=== PATIENT | male | born 1990 | race Hispanic/Latino ===

== ENCOUNTER 2017-07-19 09:13 | Day surgery (SDC) | payer OTHER ==
[2017-07-19] MEDS ORDERED: LEUCOVORIN CALCIUM IVPB SCH (09:45)
[2017-07-19] MEDS ORDERED: IRINOTECAN HCL IVPB SCH (09:45)
[2017-07-19] MEDS ORDERED: ADMIXTURE FEE IVPB SCH ×5 (09:45)
[2017-07-19] MEDS ORDERED: FLUOROURACIL IVPB SCH (09:45)
[2017-07-19] MEDS ORDERED: DEXAMETHASONE IVPB SCH (09:45)
[2017-07-19] MEDS ORDERED: ONDANSETRON IVPB SCH (09:45)
[2017-07-19] MEDS ORDERED: SODIUM CHLORIDE IVPB SCH ×4 (09:45)
[2017-07-19] MEDS ORDERED: [UNRECOGNIZED DRUG - OTHER] IVPB SCH (09:45)
[2017-07-19] MEDS ORDERED: ATROPINE SULFATE IVPB SCH (09:45)
[2017-07-19 10:32] VITALS: BP 117/65; TEMP 97.9
== END 2017-07-19 13:36 | disposition home or self-care (01) ==
LOC: ONC/OP 09:13
PROVIDERS: ATTEND Internal Medicine Hematology & Oncology
DX: Z51.11 Encounter for antineoplastic chemotherapy (principal); C20 Malignant neoplasm of rectum; C78.7 Secondary malignant neoplasm of liver and intrahepatic bile duct; E11.9 Type 2 diabetes mellitus without complications; Z88.0 Allergy status to penicillin; Z91.013 Allergy to seafood; Z91.041 Radiographic dye allergy status; Z90.49 Acquired absence of other specified parts of digestive tract; Z98.890 Other specified postprocedural states
CPT/HCPCS: 36415; 80053; 82248; 83615; 84100; 84550; 96367; 96413; 96415; 96417; A4216; J0461; J0640; J1100; J2405; J7050; J9190; J9206

== ENCOUNTER 2017-08-09 08:22 | Outpatient (CLI) | payer OTHER ==
--- NOTE | 2017-08-09 10:04 | CT ---
CT ABDOMEN AND PELVIS WITH CONTRAST: Technique: Multiple axial tomograms were obtained through the abdomen and pelvis with IV enhancement and oral contrast. History: Rectal cancer. Re-staging. Comparison: Noncontrast CT abdomen and pelvis, 07-07-[address] abdomen and pelvis 7. FINDINGS: Lung bases are clear. Multiple liver metastatic lesions are again noted. These lesions are too numerous to count. There is now increased number of these lesions when compared to 04-19-17. A larger lesion in the upper left l obe of the liver under the diaphragm measures 3.0 cm today whereas it was previously measured at 2.0 cm. A lesion near the gallbladder fossa previously measured 2.3 cm. It measures 3.0 cm today. Numer ous other lesions throughout the liver measure 1-2 cm. A larger lesion in the right lobe of the live r under the dome of the diaphragm measures 3.7 cm today whereas it previously measured 3.1 cm. Spleen and pancreas appear unremarkable. Adrenal glands and kidneys unremarkable. Small bowel loops unremarkable. Stool throughout the colon. There continues to be an area of mucosal thickening and luminal narrowin g in the rectum at the rectosigmoid junction consistent with the history of rectal cancer. Perirecta l fat stranding is again noted and unchanged in appearance. Tiny nonspecific periaortic lymph nodes appear stable. No pelvic adenopathy identified. Osseous stru ctures appear unremarkable. IMPRESSION: 1. Increasing number and size of the liver metastatic lesions when compared to the exam of 04-19-17. 2. The rectosigmoid mass with peripheral perirectal fat stranding does not appear significantly mina ged. POS: [facility]
[2017-08-09] MEDS ORDERED: Iopamidol 370 76% 100 ML VIAL ONE (16:03)
== END 2017-08-09 08:23 | disposition home or self-care (01) ==
LOC: CT 08:22
PROVIDERS: ATTEND Internal Medicine Hematology & Oncology
DX: C20 Malignant neoplasm of rectum (principal); C78.7 Secondary malignant neoplasm of liver and intrahepatic bile duct
CPT/HCPCS: 74177

== ENCOUNTER 2017-08-15 22:20 | Emergency (ER) | payer OTHER | END 2017-08-15 23:17 | disposition home or self-care (01) | LOC: SCSER 22:20 | DX: M53.3 Sacrococcygeal disorders, not elsewhere classified (principal); E11.9 Type 2 diabetes mellitus without complications; Z85.038 Personal history of other malignant neoplasm of large intestine; Z85.819 Personal history of malignant neoplasm of unspecified site of lip, oral cavity, and pharynx; Z79.4 Long term (current) use of insulin; Z79.899 Other long term (current) drug therapy | CPT/HCPCS: 96372; J2270 ==

== ENCOUNTER 2017-08-23 09:38 | Day surgery (SDC) | payer OTHER ==
[2017-08-23] MEDS ORDERED: ADMIXTURE FEE IVPB SCH ×7 (10:00→10:15)
[2017-08-23] MEDS ORDERED: Ondansetron 2MG/ML MDV 10 MG, Dexamethasone 10 MG, Admixture Fee 1 EACH in Sodium Chlor... IVP SCH (10:00)
[2017-08-23] MEDS ORDERED: DEXTROSE IVPB SCH ×6 (10:00)
[2017-08-23] MEDS ORDERED: OXALIPLATIN IVPB SCH ×3 (10:00)
[2017-08-23] MEDS ORDERED: FLUOROURACIL IVPB SCH ×3 (10:00)
[2017-08-23] MEDS ORDERED: WATER IVPB SCH ×6 (10:00)
[2017-08-23] MEDS ORDERED: Leucovorin Calcium 50 MG, Admixture Fee 1 EACH in Dextrose 5% in Water 50 ML IVPB SCH ×3 (10:00)
[2017-08-23] MEDS ORDERED: SODIUM CHLORIDE IVPB SCH (10:15)
[2017-08-23] MEDS ORDERED: BEVACIZUMAB IVPB SCH (10:15)
[2017-08-23] MEDS ORDERED: Morphine 10 MG/ML VIAL SLOW IVP SCH (10:30)
[2017-08-23] MEDS ORDERED: Sodium Chloride 0.9% 20 ML ONE (12:26)
== END 2017-08-23 15:11 | disposition home or self-care (01) ==
LOC: ONC/OP 09:38
PROVIDERS: ATTEND Internal Medicine Hematology & Oncology
DX: Z51.11 Encounter for antineoplastic chemotherapy (principal); C20 Malignant neoplasm of rectum; C78.7 Secondary malignant neoplasm of liver and intrahepatic bile duct; E11.9 Type 2 diabetes mellitus without complications; Z79.4 Long term (current) use of insulin; Z79.891 Long term (current) use of opiate analgesic; Z79.899 Other long term (current) drug therapy; Z88.0 Allergy status to penicillin; Z91.041 Radiographic dye allergy status; Z91.013 Allergy to seafood; Z95.828 Presence of other vascular implants and grafts; Z90.49 Acquired absence of other specified parts of digestive tract; Z98.890 Other specified postprocedural states
CPT/HCPCS: 36415; 80053; 82248; 82378; 83615; 84100; 84550; 96367; 96413; 96415; 96417; A4216; J0640; J1100; J2270; J2405; J7050; J7070; J9035; J9190; J9263

== ENCOUNTER 2017-08-24 21:11 | Emergency (ER) | payer OTHER ==
[2017-08-24] MEDS ORDERED: Morphine 4 MG/ML Carpuject ONE ×2 (21:26→22:31)
[2017-08-24] MEDS ORDERED: Ondansetron HCl/PF 4 MG/2 ML Vial ONE (21:26)
[2017-08-24 21:42] LABS: #Lymphocytes 0.8 thou/uL (1.20-3.40); #Monocytes 0.6 thou/uL (0.11-0.59); %Basophils 0.4 % (0.0-1.0); %Eosinophils 0.3 % (0.0-10.0); %Lymphocytes 8.2 % (21.0-51.0); %Monocytes 6.6 % (0.0-10.0); Hematocrit 37.7 % (42.0-52.0); Mean Platelet Volume 5.5 fL (7.4-10.4); Red Blood Cell (RBC) Count 4.57 mill/uL (4.70-6.10); White Blood Cell (WBC) Count 9.5 thou/uL (4.8-10.8)
[2017-08-24 21:49] LABS: Lactic Acid - Sepsis 1.6 mmol/L (0.5-2.2)
[2017-08-24 21:57] LABS: ALT (SGPT) 21 U/L (8-55); AST (SGOT) 59 U/L (5-34); Alkaline Phosphatase 208 U/L (40-150); Anion Gap 17 mmol/L (10-20); BUN (Urea Nitrogen) 16 mg/dL (8.9-20.6); Bilirubin, Total 0.5 mg/dL (0.2-1.2); Calc. Creatinine Clearance 0 mL/min (70-130); Calcium 9.1 mg/dL (7.8-10.44); Carbon Dioxide 23 mmol/L (22-29); Chloride 93 mmol/L (98-107); Estimated GFR-MDRD Greater than 90; Globulin 3.8 g/dL (2.4-3.5); Lipase 113 U/L (8-78); Protein, Total 7.5 g/dL (6.0-8.3)
[2017-08-24] MEDS ORDERED: Insulin Regular 300 UNITS/3 ML VIAL ONE (22:31)
[2017-08-24] MEDS ORDERED: Magnesium Citrate 300 ML BOT ONE (23:03)
[2017-08-24 23:12] LABS: Bilirubin Negative (Negative); Blood, Urine Negative (Negative); Glucose, Urine (Dipstick) >=1000 mg/dL (Negative); Ketone, Urine Trace mg/dL (Negative); Nitrite Negative (Negative); Protein, Urine (Dipstick) Negative (Neg-Trace)
--- NOTE | 2017-08-25 00:49 | CT ---
CT OF THE ABDOMEN AND PELVIS WITH IV CONTRAST 08/24/17 INDICATION: Pain in the colon region and center of the abdomen with a history of colon cancer. COMPARISON: Prior exam dated 08/09/17. FINDINGS: The hepatic metastatic disease has increased in size. Index lesion within the segment V right hepati c lobe has increased from 3 cm to 3.9 cm. Enlarged periportal lymph node measures 1.2 cm which is slightly more prominent than on the comparis on exam. The pancreas, adrenal glands, and spleen appear within normal limits. There is slight prominence of both renal pelves and ureters. There is some moderate distention of the bladder. Small bowel is of normal caliber. There is a moderate amount of retained stool within the colon. The rectosigmoid mass is not appreciably changed from the comparison exam. IMPRESSION: 1. Worsening hepatic metastatic disease. 2. Enlarged periportal lymph node. 3. Prominence of the bladder with mild prominence of both renal collecting systems may reflect a component of bladder outlet obstruction. 4. Rectosigmoid mass within the pelvis is similar. 5. Other chronic findings as above. POS: [facility]
== END 2017-08-25 00:08 | disposition home or self-care (01) ==
LOC: SCSER 21:11
DX: K59.00 Constipation, unspecified (principal); C20 Malignant neoplasm of rectum; E11.9 Type 2 diabetes mellitus without complications; Z79.4 Long term (current) use of insulin; Z79.899 Other long term (current) drug therapy
CPT/HCPCS: 74177; 80053; 81003; 83605; 83690; 85025; 96361; 96374; 96375; 96376; J1815; J2270; J2405

== ENCOUNTER 2017-09-06 09:08 | Day surgery (SDC) | payer OTHER ==
[2017-09-06] MEDS ORDERED: Sodium Chloride 0.9% 20 ML ONE (09:19)
[2017-09-06] MEDS ORDERED: Leucovorin Calcium 50 MG, Admixture Fee 1 EACH in Dextrose 5% in Water 50 ML IVPB SCH ×3 (09:30)
[2017-09-06] MEDS ORDERED: FLUOROURACIL IVPB SCH ×3 (09:30)
[2017-09-06] MEDS ORDERED: WATER IVPB SCH ×6 (09:30)
[2017-09-06] MEDS ORDERED: ADMIXTURE FEE IVPB SCH ×7 (09:30→09:45)
[2017-09-06] MEDS ORDERED: Ondansetron 2MG/ML MDV 10 MG, Dexamethasone 10 MG, Admixture Fee 1 EACH in Sodium Chlor... IVP SCH (09:30)
[2017-09-06] MEDS ORDERED: OXALIPLATIN IVPB SCH ×3 (09:30)
[2017-09-06] MEDS ORDERED: DEXTROSE IVPB SCH ×6 (09:30)
[2017-09-06] MEDS ORDERED: SODIUM CHLORIDE IVPB SCH (09:45)
[2017-09-06] MEDS ORDERED: BEVACIZUMAB IVPB SCH (09:45)
[2017-09-06 10:02] VITALS: BP 105/71
== END 2017-09-06 14:26 | disposition home or self-care (01) ==
LOC: ONC/OP 09:08
PROVIDERS: ATTEND Internal Medicine Hematology & Oncology
DX: Z51.11 Encounter for antineoplastic chemotherapy (principal); C20 Malignant neoplasm of rectum; C78.7 Secondary malignant neoplasm of liver and intrahepatic bile duct; E11.9 Type 2 diabetes mellitus without complications; Z88.0 Allergy status to penicillin; Z91.013 Allergy to seafood; Z91.041 Radiographic dye allergy status; Z79.84 Long term (current) use of oral hypoglycemic drugs; Z79.899 Other long term (current) drug therapy; Z90.49 Acquired absence of other specified parts of digestive tract; Z83.79 Family history of other diseases of the digestive system
CPT/HCPCS: 96367; 96413; 96415; 96417; A4216; J0640; J1100; J2405; J7050; J7070; J9035; J9190; J9263

== ENCOUNTER 2017-09-09 21:35 | Emergency (ER) | payer OTHER ==
[2017-09-09 22:50] LABS: #Eosinphils 0.1 thou/uL (0.0-0.7); #Lymphocytes 1.3 thou/uL (1.20-3.40); #Monocytes 0.1 thou/uL (0.11-0.59); %Basophils 0.3 % (0.0-1.0); %Eosinophils 2.4 % (0.0-10.0); %Lymphocytes 37.4 % (21.0-51.0); %Monocytes 3.3 % (0.0-10.0); Hematocrit 34.6 % (42.0-52.0); Mean Platelet Volume 6.4 fL (7.4-10.4); Red Blood Cell (RBC) Count 4.13 mill/uL (4.70-6.10); White Blood Cell (WBC) Count 3.5 thou/uL (4.8-10.8)
[2017-09-09 23:08] LABS: ALT (SGPT) 13 U/L (8-55); AST (SGOT) 15 U/L (5-34); Alkaline Phosphatase 134 U/L (40-150); Anion Gap 12 mmol/L (10-20); BUN (Urea Nitrogen) 15 mg/dL (8.9-20.6); Bilirubin, Total 0.5 mg/dL (0.2-1.2); Calc. Creatinine Clearance 0 mL/min (70-130); Calcium 8.6 mg/dL (7.8-10.44); Carbon Dioxide 27 mmol/L (22-29); Chloride 100 mmol/L (98-107); Estimated GFR-MDRD Greater than 90; Globulin 2.7 g/dL (2.4-3.5)
[2017-09-09] MEDS ORDERED: Ketorolac Tromethamine 30 MG/ML VIAL ONE (23:42)
== END 2017-09-10 01:47 | disposition home or self-care (01) ==
LOC: ERS 21:35
DX: K62.89 Other specified diseases of anus and rectum (principal); R19.7 Diarrhea, unspecified; E10.9 Type 1 diabetes mellitus without complications; Z79.899 Other long term (current) drug therapy
CPT/HCPCS: 36415; 80053; 85025; 96361; 96374; 96375; 96376; J1170; J1885

== ENCOUNTER 2017-09-16 18:37 | Emergency (ER) | payer OTHER ==
[2017-09-16 19:45] LABS: Bilirubin Negative (Negative); Blood, Urine Negative (Negative); Glucose, Urine (Dipstick) 500 mg/dL (Negative); Ketone, Urine Negative (Negative); Nitrite Negative (Negative); Protein, Urine (Dipstick) Negative (Neg-Trace); Urobilinogen 0.2 mg/dL (0.2-1.0)
== END 2017-09-16 19:58 | disposition home or self-care (01) ==
LOC: SCSER 18:37
DX: N48.89 Other specified disorders of penis (principal)
CPT/HCPCS: 81003; 99283

== ENCOUNTER 2017-09-20 11:29 | Day surgery (SDC) | payer OTHER ==
[2017-09-20] MEDS ORDERED: Sodium Chloride 0.9% 30 ML ONE (11:48)
[2017-09-20 12:13] VITALS: BP 114/67; TEMP 97.3
[2017-09-20] MEDS ORDERED: Ondansetron 2MG/ML MDV 10 MG, Dexamethasone 10 MG, Admixture Fee 1 EACH in Sodium Chlor... IVP SCH (12:30)
[2017-09-20 12:36] LABS: Anion Gap 13 mmol/L (10-20); BUN (Urea Nitrogen) 18 mg/dL (8.9-20.6); Calc. Creatinine Clearance 137 mL/min (70-130); Calcium 9.1 mg/dL (7.8-10.44); Carbon Dioxide 24 mmol/L (22-29); Chloride 101 mmol/L (98-107); Estimated GFR-MDRD Greater than 90
[2017-09-20] MEDS ORDERED: SODIUM CHLORIDE IVPB SCH (13:00)
[2017-09-20] MEDS ORDERED: Leucovorin Calcium 50 MG, Admixture Fee 1 EACH in Dextrose 5% in Water 50 ML IVPB SCH ×3 (13:00)
[2017-09-20] MEDS ORDERED: BEVACIZUMAB IVPB SCH (13:00)
[2017-09-20] MEDS ORDERED: DEXTROSE IVPB SCH ×3 (13:00)
[2017-09-20] MEDS ORDERED: ADMIXTURE FEE IVPB SCH ×4 (13:00)
[2017-09-20] MEDS ORDERED: FLUOROURACIL IVPB SCH ×3 (13:00)
[2017-09-20] MEDS ORDERED: WATER IVPB SCH ×3 (13:00)
== END 2017-09-20 17:17 | disposition home or self-care (01) ==
LOC: ONC/OP 11:29
PROVIDERS: ATTEND Internal Medicine Hematology & Oncology
DX: Z51.11 Encounter for antineoplastic chemotherapy (principal); C20 Malignant neoplasm of rectum; C78.7 Secondary malignant neoplasm of liver and intrahepatic bile duct; E11.9 Type 2 diabetes mellitus without complications; Z79.4 Long term (current) use of insulin; Z79.899 Other long term (current) drug therapy; Z91.041 Radiographic dye allergy status; Z88.0 Allergy status to penicillin; Z91.013 Allergy to seafood; Z90.49 Acquired absence of other specified parts of digestive tract
CPT/HCPCS: 80048; 96367; 96413; 96415; 96417; A4216; J0640; J1100; J1642; J2405; J7050; J7070; J9035; J9190; J9263

== ENCOUNTER 2017-10-04 08:56 | Day surgery (SDC) | payer OTHER ==
[2017-10-04] MEDS ORDERED: Sodium Chloride 0.9% 20 ML ONE (09:10)
[2017-10-04] MEDS ORDERED: Leucovorin Calcium 50 MG, Admixture Fee 1 EACH in Dextrose 5% in Water 50 ML IVPB SCH ×3 (09:15)
[2017-10-04] MEDS ORDERED: Ondansetron 2MG/ML MDV 10 MG, Dexamethasone 10 MG, Admixture Fee 1 EACH in Sodium Chlor... IVP SCH (09:15)
[2017-10-04] MEDS ORDERED: DEXTROSE IVPB SCH ×6 (09:15)
[2017-10-04] MEDS ORDERED: WATER IVPB SCH ×6 (09:15)
[2017-10-04] MEDS ORDERED: FLUOROURACIL IVPB SCH ×3 (09:15)
[2017-10-04] MEDS ORDERED: ADMIXTURE FEE IVPB SCH ×8 (09:15→09:30)
[2017-10-04] MEDS ORDERED: BEVACIZUMAB IVPB SCH ×2 (09:15→09:30)
[2017-10-04] MEDS ORDERED: SODIUM CHLORIDE IVPB SCH ×2 (09:15→09:30)
[2017-10-04] MEDS ORDERED: OXALIPLATIN IVPB SCH ×3 (09:15)
[2017-10-04 10:05] VITALS: BP 119/76; TEMP 97.8
== END 2017-10-04 14:06 | disposition home or self-care (01) ==
LOC: ONC/OP 08:56
PROVIDERS: ATTEND Internal Medicine Hematology & Oncology
DX: Z51.11 Encounter for antineoplastic chemotherapy (principal); C20 Malignant neoplasm of rectum; C78.7 Secondary malignant neoplasm of liver and intrahepatic bile duct; E11.9 Type 2 diabetes mellitus without complications; Z88.0 Allergy status to penicillin; Z91.041 Radiographic dye allergy status; Z91.013 Allergy to seafood; Z79.4 Long term (current) use of insulin; Z79.899 Other long term (current) drug therapy; Z90.49 Acquired absence of other specified parts of digestive tract; Z98.890 Other specified postprocedural states
CPT/HCPCS: 36415; 80053; 82248; 82378; 83615; 84100; 84550; 96367; 96413; 96415; 96417; A4216; J0640; J1100; J2405; J7050; J7070; J9035; J9190; J9263

== ENCOUNTER 2017-10-10 22:40 | Emergency (ER) | payer OTHER ==
[2017-10-10] MEDS ORDERED: Morphine 4 MG/ML Carpuject ONE ×2 (23:26→23:27)
[2017-10-11 00:13] LABS: ALT (SGPT) 18 U/L (8-55); AST (SGOT) 20 U/L (5-34); Alkaline Phosphatase 162 U/L (40-150); Anion Gap 17 mmol/L (10-20); BUN (Urea Nitrogen) 16 mg/dL (8.9-20.6); Bilirubin, Total 0.3 mg/dL (0.2-1.2); Calcium 9.1 mg/dL (7.8-10.44); Carbon Dioxide 20 mmol/L (22-29); Chloride 102 mmol/L (98-107); Globulin 3.2 g/dL (2.4-3.5); Protein, Total 6.9 g/dL (6.0-8.3)
[2017-10-11 00:21] LABS: Anisocytosis SLIGHT = 6-15 cells (100X) (0-5/hpf); Band 1 % (5-11); Hematocrit 38.1 % (42.0-52.0); Hypochromia SLIGHT = 6-15 cells (100X) (0-5/hpf); Mean Platelet Volume 5.7 fL (7.4-10.4); Neutrophil 46 % (42-75); Red Blood Cell (RBC) Count 4.74 mill/uL (4.70-6.10); White Blood Cell (WBC) Count 4.2 thou/uL (4.8-10.8)
[2017-10-11] MEDS ORDERED: Insulin Regular 300 UNITS/3 ML VIAL ONE (00:27)
[2017-10-11 01:11] LABS: Calc. Creatinine Clearance 0 mL/min (70-130); Estimated GFR-MDRD 88
== END 2017-10-11 00:46 | disposition home or self-care (01) ==
LOC: SCSER 22:40
DX: C19 Malignant neoplasm of rectosigmoid junction (principal); C78.7 Secondary malignant neoplasm of liver and intrahepatic bile duct; E10.65 Type 1 diabetes mellitus with hyperglycemia; Z79.899 Other long term (current) drug therapy
CPT/HCPCS: 80053; 85025; 96361; 96372; 96374; J1815; J2270

== ENCOUNTER 2017-10-18 10:46 | Day surgery (SDC) | payer OTHER ==
[2017-10-18] MEDS ORDERED: Ondansetron 2MG/ML MDV 10 MG, Dexamethasone 10 MG, Admixture Fee 1 EACH in Sodium Chlor... IVP SCH (12:00)
[2017-10-18] MEDS ORDERED: Sodium Chloride 0.9% 30 ML ONE (12:03)
[2017-10-18 12:35] VITALS: BP 110/85; TEMP 97.9
[2017-10-18] MEDS ORDERED: OXALIPLATIN IVPB SCH ×3 (13:00)
[2017-10-18] MEDS ORDERED: Leucovorin Calcium 50 MG, Admixture Fee 1 EACH in Dextrose 5% in Water 50 ML IVPB SCH ×3 (13:00)
[2017-10-18] MEDS ORDERED: FLUOROURACIL IVPB SCH ×3 (13:00)
[2017-10-18] MEDS ORDERED: DEXTROSE IVPB SCH ×6 (13:00)
[2017-10-18] MEDS ORDERED: BEVACIZUMAB IVPB SCH (13:00)
[2017-10-18] MEDS ORDERED: WATER IVPB SCH ×6 (13:00)
[2017-10-18] MEDS ORDERED: ADMIXTURE FEE IVPB SCH ×7 (13:00)
[2017-10-18] MEDS ORDERED: Admixture Fee 1 EACH in Dextrose 5% in Water 10 ML FS SCH ×2 (13:00)
[2017-10-18] MEDS ORDERED: SODIUM CHLORIDE IVPB SCH (13:00)
== END 2017-10-18 17:28 | disposition home or self-care (01) ==
LOC: ONC/OP 10:46
PROVIDERS: ATTEND Internal Medicine Hematology & Oncology
DX: Z51.11 Encounter for antineoplastic chemotherapy (principal); C20 Malignant neoplasm of rectum; C78.7 Secondary malignant neoplasm of liver and intrahepatic bile duct; E11.9 Type 2 diabetes mellitus without complications; Z88.1 Allergy status to other antibiotic agents; Z91.013 Allergy to seafood; Z91.041 Radiographic dye allergy status; Z79.84 Long term (current) use of oral hypoglycemic drugs; Z79.899 Other long term (current) drug therapy; Z90.49 Acquired absence of other specified parts of digestive tract; Z83.79 Family history of other diseases of the digestive system
CPT/HCPCS: 96367; 96413; 96415; 96417; A4216; J0640; J1100; J2405; J7050; J7070; J9035; J9190; J9263

== ENCOUNTER 2017-10-22 22:23 | Emergency (ER) | payer OTHER ==
[2017-10-22] MEDS ORDERED: Nystatin 500,000 UNITS/5 ML UDCUP ONE (22:44)
== END 2017-10-22 23:06 | disposition home or self-care (01) ==
LOC: SCSER 22:23
DX: B37.42 Candidal balanitis (principal); E11.9 Type 2 diabetes mellitus without complications; C18.9 Malignant neoplasm of colon, unspecified; C78.7 Secondary malignant neoplasm of liver and intrahepatic bile duct
CPT/HCPCS: 99282

== ENCOUNTER 2017-11-01 10:00 | Day surgery (SDC) | payer OTHER ==
[2017-11-01] MEDS ORDERED: Sodium Chloride 0.9% 30 ML ONE (10:41)
[2017-11-01] MEDS ORDERED: Leucovorin Calcium 50 MG in Dextrose 5% in Water 50 ML IVPB SCH ×2 (10:45)
[2017-11-01] MEDS ORDERED: ADMIXTURE FEE IVPB SCH ×7 (10:45)
[2017-11-01] MEDS ORDERED: BEVACIZUMAB IVPB SCH (10:45)
[2017-11-01] MEDS ORDERED: SODIUM CHLORIDE IVPB SCH (10:45)
[2017-11-01] MEDS ORDERED: FLUOROURACIL IVPB SCH ×3 (10:45)
[2017-11-01] MEDS ORDERED: WATER IVPB SCH ×6 (10:45)
[2017-11-01] MEDS ORDERED: DEXTROSE IVPB SCH ×6 (10:45)
[2017-11-01] MEDS ORDERED: Ondansetron 2MG/ML MDV 10 MG, Dexamethasone 10 MG in Sodium Chloride 0.9% 50 ML IVP SCH (10:45)
[2017-11-01] MEDS ORDERED: OXALIPLATIN IVPB SCH ×3 (10:45)
[2017-11-01 10:48] VITALS: BP 127/85; TEMP 97.5
[2017-11-01] MEDS ORDERED: Admixture Fee 1 EACH in Dextrose 5% in Water 10 ML FS SCH ×2 (11:30)
== END 2017-11-01 15:12 | disposition home or self-care (01) ==
LOC: ONC/OP 10:00
PROVIDERS: ATTEND Internal Medicine Hematology & Oncology
DX: Z51.11 Encounter for antineoplastic chemotherapy (principal); C20 Malignant neoplasm of rectum; C78.7 Secondary malignant neoplasm of liver and intrahepatic bile duct; E11.9 Type 2 diabetes mellitus without complications; Z79.4 Long term (current) use of insulin; Z79.891 Long term (current) use of opiate analgesic; Z79.899 Other long term (current) drug therapy; Z88.0 Allergy status to penicillin; Z91.013 Allergy to seafood; Z90.49 Acquired absence of other specified parts of digestive tract
CPT/HCPCS: 36415; 82378; 96367; 96413; 96415; 96417; A4216; J0640; J1100; J2405; J7050; J7070; J9035; J9190; J9263

== ENCOUNTER 2017-11-15 11:47 | Day surgery (SDC) | payer OTHER ==
[2017-11-15] MEDS ORDERED: FLUOROURACIL IVPB SCH ×2 (12:30)
[2017-11-15] MEDS ORDERED: Leucovorin Calcium 50 MG in Dextrose 5% in Water 50 ML IVPB SCH ×2 (12:30)
[2017-11-15] MEDS ORDERED: Ondansetron HCl/PF 10 MG in Sodium Chloride 0.9% 50 ML IVPB SCH (12:30)
[2017-11-15] MEDS ORDERED: Dexamethasone 10 MG in Sodium Chloride 0.9% 50 ML IVPB SCH (12:30)
[2017-11-15] MEDS ORDERED: DEXTROSE 5% IVPB SCH ×2 (12:30)
[2017-11-15] MEDS ORDERED: WATER IVPB SCH ×2 (12:30)
[2017-11-15] MEDS ORDERED: Bevacizumab 400 MG in Sodium Chloride 0.9% 84 ML IVPB SCH (12:45)
[2017-11-15] MEDS ORDERED: Dexamethasone 10 MG, Ondansetron 2MG/ML MDV 10 MG in Sodium Chloride 0.9% 50 ML IVPB SCH (12:45)
[2017-11-15] MEDS ORDERED: Sodium Chloride 0.9% 20 ML ONE (16:01)
== END 2017-11-15 17:24 | disposition home or self-care (01) ==
LOC: ONC/OP 11:47
PROVIDERS: ATTEND Internal Medicine Hematology & Oncology
DX: Z51.11 Encounter for antineoplastic chemotherapy (principal); C20 Malignant neoplasm of rectum; C78.7 Secondary malignant neoplasm of liver and intrahepatic bile duct; E11.9 Type 2 diabetes mellitus without complications; Z79.4 Long term (current) use of insulin; Z79.899 Other long term (current) drug therapy; Z91.041 Radiographic dye allergy status; Z88.0 Allergy status to penicillin; Z91.013 Allergy to seafood; Z90.49 Acquired absence of other specified parts of digestive tract
CPT/HCPCS: 96367; 96413; 96415; 96417; A4216; J0640; J1100; J2405; J7050; J7070; J9035; J9190; J9263

== ENCOUNTER 2017-11-18 07:17 | Outpatient (CLI) | payer OTHER ==
--- NOTE | 2017-11-18 09:51 | CT ---
CT ABDOMEN AND PELVIS WITH CONTRAST: HISTORY: C20, rectal cancer restaging. COMPARISON: CT abdomen and pelvis 08/24/17. FINDINGS: The lung qiu are clear. No pericardial effusion. There are innumerable hepatic metastases, although the overall volume of metastatic disease has impro anitra. Index lesion hepatic segment 8 previously measured 3.8 cm and now measures up to 2.3 cm. Index lesion hepatic segment 6 previously measured up to 2.6 cm, now measuring less than 1 cm. Some of th e hepatic metastatic foci are not even seen on today's examination. The spleen and adrenal glands are unremarkable as well as the pancreas. The rectal mass appears to h ave decreased perirectal vascular congestion. There appears to be wall thickening of the rectum circ umferentially. The mass appears to have decreased in bulk. No evidence of a large bowel obstruction . There appears to be extension of malignancy across the serosa. A right mesorectal lymph node series 2 image 71 measures just under 5 mm, previously nearly 6 mm, improving. The skeleton is unremarkable . No suspicious lytic or blastic lesions. No displaced rib fracture. The lung bases are clear. IMPRESSION: 1. Marked interval size decrease of hepatic metasatic disease with a few foci no longer visualized. This suggests marked interval response to treatment. 2. Decreased bulk of the rectal mass, although there is concern that this does extend across the ser jenny. The pelvic congestion from the rectal veins has decreased. 3. Loss of normal fat plane between the left seminal vesical and the rectal mass may represent invas ion. POS: [facility]
[2017-11-18] MEDS ORDERED: Iopamidol 370 76% 100 ML VIAL ONE (14:10)
== END 2017-11-18 07:18 | disposition home or self-care (01) ==
LOC: CT 07:17
PROVIDERS: ATTEND Internal Medicine Hematology & Oncology
DX: C20 Malignant neoplasm of rectum (principal); C78.7 Secondary malignant neoplasm of liver and intrahepatic bile duct
CPT/HCPCS: 74177

== ENCOUNTER 2017-11-29 09:54 | Day surgery (SDC) | payer OTHER ==
[2017-11-29] MEDS ORDERED: Sodium Chloride 0.9% 40 ML ONE (09:57)
[2017-11-29] MEDS ORDERED: Dexamethasone 10 MG/ML VIAL SLOW IVP SCH (10:15)
[2017-11-29] MEDS ORDERED: DEXTROSE IVPB SCH ×6 (10:15)
[2017-11-29] MEDS ORDERED: BEVACIZUMAB IVPB SCH (10:15)
[2017-11-29] MEDS ORDERED: SODIUM CHLORIDE IVPB SCH (10:15)
[2017-11-29] MEDS ORDERED: FLUOROURACIL IVPB SCH ×3 (10:15)
[2017-11-29] MEDS ORDERED: Ondansetron HCl/PF 4 MG/2 ML Vial IVP SCH (10:15)
[2017-11-29] MEDS ORDERED: WATER IVPB SCH ×6 (10:15)
[2017-11-29] MEDS ORDERED: Leucovorin Calcium 50 MG, Admixture Fee 1 EACH in Dextrose 5% in Water 50 ML IVPB SCH ×3 (10:15)
[2017-11-29] MEDS ORDERED: ADMIXTURE FEE IVPB SCH ×7 (10:15)
[2017-11-29] MEDS ORDERED: OXALIPLATIN IVPB SCH ×3 (10:15)
[2017-11-29] MEDS ORDERED: Admixture Fee 1 EACH in Dextrose 5% in Water 10 ML FS SCH ×2 (10:30)
[2017-11-29 10:37] VITALS: BP 109/73; TEMP 97.5
== END 2017-11-29 15:43 | disposition home or self-care (01) ==
LOC: ONC/OP 09:54
PROVIDERS: ATTEND Internal Medicine Hematology & Oncology
DX: Z51.11 Encounter for antineoplastic chemotherapy (principal); C20 Malignant neoplasm of rectum; C78.7 Secondary malignant neoplasm of liver and intrahepatic bile duct; E11.9 Type 2 diabetes mellitus without complications; Z79.4 Long term (current) use of insulin; Z79.891 Long term (current) use of opiate analgesic; Z79.899 Other long term (current) drug therapy; Z88.0 Allergy status to penicillin; Z91.041 Radiographic dye allergy status; Z91.013 Allergy to seafood; Z90.49 Acquired absence of other specified parts of digestive tract
CPT/HCPCS: 36415; 80053; 82248; 82378; 83615; 84100; 84550; 96375; 96413; 96415; 96417; A4216; J0640; J1100; J2405; J7050; J7070; J9035; J9190; J9263

== ENCOUNTER 2017-12-13 11:28 | Day surgery (SDC) | payer OTHER ==
[2017-12-13] MEDS ORDERED: Sodium Chloride 0.9% 50 ML ONE (11:41)
[2017-12-13] MEDS ORDERED: Dexamethasone 10 MG/ML VIAL SLOW IVP SCH (12:00)
[2017-12-13] MEDS ORDERED: Admixture Fee 1 EACH in Dextrose 5% in Water 10 ML IV SCH (12:00)
[2017-12-13] MEDS ORDERED: Ondansetron HCl/PF 4 MG/2 ML Vial IVP SCH (12:00)
[2017-12-13] MEDS ORDERED: DEXTROSE IVPB SCH ×2 (12:30)
[2017-12-13] MEDS ORDERED: SODIUM CHLORIDE IVPB SCH (12:30)
[2017-12-13] MEDS ORDERED: WATER IVPB SCH ×2 (12:30)
[2017-12-13] MEDS ORDERED: FLUOROURACIL IVPB SCH (12:30)
[2017-12-13] MEDS ORDERED: Leucovorin Calcium 50 MG, Admixture Fee 1 EACH in Dextrose 5% in Water 50 ML IVPB SCH (12:30)
[2017-12-13] MEDS ORDERED: ADMIXTURE FEE IVPB SCH ×3 (12:30)
[2017-12-13] MEDS ORDERED: OXALIPLATIN IVPB SCH (12:30)
[2017-12-13] MEDS ORDERED: BEVACIZUMAB IVPB SCH (12:30)
[2017-12-13 13:32] VITALS: BP 135/83; TEMP 97.6
== END 2017-12-13 17:16 | disposition home or self-care (01) ==
LOC: ONC/OP 11:28
PROVIDERS: ATTEND Internal Medicine Hematology & Oncology
DX: Z51.11 Encounter for antineoplastic chemotherapy (principal); C20 Malignant neoplasm of rectum; C78.7 Secondary malignant neoplasm of liver and intrahepatic bile duct; E11.9 Type 2 diabetes mellitus without complications; Z79.4 Long term (current) use of insulin; Z79.891 Long term (current) use of opiate analgesic; Z79.899 Other long term (current) drug therapy; Z91.041 Radiographic dye allergy status; Z88.0 Allergy status to penicillin; Z91.013 Allergy to seafood; Z90.49 Acquired absence of other specified parts of digestive tract; Z98.890 Other specified postprocedural states
CPT/HCPCS: 96367; 96375; 96413; 96415; 96417; A4216; J0640; J1100; J2405; J7050; J7070; J9035; J9190; J9263

== ENCOUNTER 2017-12-16 20:01 | Emergency (ER) | payer OTHER | END 2017-12-16 20:28 | disposition home or self-care (01) | LOC: SCSER 20:01 | DX: J32.9 Chronic sinusitis, unspecified (principal); E11.9 Type 2 diabetes mellitus without complications | CPT/HCPCS: 99283 ==

== ENCOUNTER 2017-12-27 09:54 | Day surgery (SDC) | payer OTHER ==
[2017-12-27] MEDS ORDERED: Sodium Chloride 0.9% 40 ML ONE (10:06)
[2017-12-27] MEDS ORDERED: Leucovorin Calcium 50 MG, Admixture Fee 1 EACH in Dextrose 5% in Water 50 ML IVPB SCH (10:30)
[2017-12-27] MEDS ORDERED: WATER IVPB SCH ×2 (10:30)
[2017-12-27] MEDS ORDERED: FLUOROURACIL IVPB SCH (10:30)
[2017-12-27] MEDS ORDERED: ADMIXTURE FEE IVPB SCH ×3 (10:30)
[2017-12-27] MEDS ORDERED: OXALIPLATIN IVPB SCH (10:30)
[2017-12-27] MEDS ORDERED: BEVACIZUMAB IVPB SCH (10:30)
[2017-12-27] MEDS ORDERED: Ondansetron HCl/PF 4 MG/2 ML Vial IVP SCH (10:30)
[2017-12-27] MEDS ORDERED: DEXTROSE IVPB SCH ×2 (10:30)
[2017-12-27] MEDS ORDERED: SODIUM CHLORIDE IVPB SCH (10:30)
[2017-12-27] MEDS ORDERED: Dexamethasone 10 MG/ML VIAL SLOW IVP SCH (10:30)
[2017-12-27 10:45] VITALS: BP 119/69; TEMP 97.8
[2017-12-27] MEDS ORDERED: ADMIXTURE FEE FS SCH (10:45)
[2017-12-27] MEDS ORDERED: WATER FS SCH (10:45)
[2017-12-27] MEDS ORDERED: Admixture Fee 1 EACH in Dextrose 5% in Water 10 ML FS SCH (10:45)
[2017-12-27] MEDS ORDERED: DEXTROSE FS SCH (10:45)
== END 2017-12-27 16:48 | disposition home or self-care (01) ==
LOC: ONC/OP 09:54
PROVIDERS: ATTEND Internal Medicine Hematology & Oncology
DX: Z51.11 Encounter for antineoplastic chemotherapy (principal); C20 Malignant neoplasm of rectum; C78.7 Secondary malignant neoplasm of liver and intrahepatic bile duct; E11.9 Type 2 diabetes mellitus without complications; Z79.4 Long term (current) use of insulin; Z79.899 Other long term (current) drug therapy; Z91.041 Radiographic dye allergy status; Z88.0 Allergy status to penicillin; Z91.013 Allergy to seafood; Z98.890 Other specified postprocedural states
CPT/HCPCS: 36415; 80053; 82248; 82378; 83615; 84100; 84550; 96375; 96413; 96415; 96416; 96417; A4216; J0640; J1100; J2405; J7050; J7070; J9035; J9190; J9263

== ENCOUNTER 2018-01-10 10:03 | Day surgery (SDC) | payer OTHER ==
[2018-01-10] MEDS ORDERED: Ondansetron HCl/PF 4 MG/2 ML Vial IVP SCH (10:30)
[2018-01-10] MEDS ORDERED: Sodium Chloride 0.9% 30 ML ONE (10:38)
[2018-01-10] MEDS ORDERED: FLUOROURACIL IVPB SCH ×2 (10:45)
[2018-01-10] MEDS ORDERED: WATER IVPB SCH ×2 (10:45)
[2018-01-10] MEDS ORDERED: SODIUM CHLORIDE IVPB SCH (10:45)
[2018-01-10] MEDS ORDERED: ADMIXTURE FEE IVPB SCH (10:45)
[2018-01-10] MEDS ORDERED: BEVACIZUMAB IVPB SCH (10:45)
[2018-01-10] MEDS ORDERED: Dexamethasone 10 MG/ML VIAL SLOW IVP SCH (10:45)
[2018-01-10] MEDS ORDERED: DEXTROSE 5% IVPB SCH ×2 (10:45)
[2018-01-10] MEDS ORDERED: Leucovorin Calcium 50 MG, Admixture Fee 1 EACH in Dextrose 5% in Water 50 ML IVPB SCH ×3 (10:45)
[2018-01-10 11:50] VITALS: BP 119/78; TEMP 97.9
== END 2018-01-10 16:10 | disposition home or self-care (01) ==
LOC: ONC/OP 10:03
PROVIDERS: ATTEND Internal Medicine Hematology & Oncology
DX: Z51.11 Encounter for antineoplastic chemotherapy (principal); C20 Malignant neoplasm of rectum; C78.7 Secondary malignant neoplasm of liver and intrahepatic bile duct; E11.9 Type 2 diabetes mellitus without complications; Z79.4 Long term (current) use of insulin; Z79.891 Long term (current) use of opiate analgesic; Z79.899 Other long term (current) drug therapy; Z88.0 Allergy status to penicillin; Z91.041 Radiographic dye allergy status; Z91.013 Allergy to seafood; Z98.890 Other specified postprocedural states
CPT/HCPCS: 96367; 96375; 96413; 96416; 96417; A4216; J0640; J1100; J2405; J7050; J7070; J9035; J9190

== ENCOUNTER 2018-01-30 12:13 | Day surgery (SDC) | payer OTHER ==
[2018-01-30] MEDS ORDERED: Sodium Chloride 0.9% 50 ML ONE (12:36)
[2018-01-30] MEDS ORDERED: Ondansetron HCl/PF 4 MG/2 ML Vial IVP SCH (13:15)
[2018-01-30] MEDS ORDERED: WATER IVPB SCH ×3 (13:30)
[2018-01-30] MEDS ORDERED: Leucovorin Calcium 50 MG, Admixture Fee 1 EACH in Dextrose 5% in Water 50 ML IVPB SCH ×3 (13:30)
[2018-01-30] MEDS ORDERED: Dexamethasone 10 MG/ML VIAL SLOW IVP SCH (13:30)
[2018-01-30] MEDS ORDERED: Dexamethasone 10 MG, Ondansetron 2MG/ML MDV 10 MG in Sodium Chloride 0.9% 50 ML IVPB SCH (13:30)
[2018-01-30] MEDS ORDERED: DEXTROSE IVPB SCH ×3 (13:30)
[2018-01-30] MEDS ORDERED: BEVACIZUMAB IVPB SCH (13:30)
[2018-01-30] MEDS ORDERED: ADMIXTURE FEE IVPB SCH ×4 (13:30)
[2018-01-30] MEDS ORDERED: FLUOROURACIL IVPB SCH ×3 (13:30)
[2018-01-30] MEDS ORDERED: SODIUM CHLORIDE IVPB SCH (13:30)
[2018-01-30 15:20] VITALS: BP 132/80; TEMP 98
== END 2018-01-30 15:58 | disposition home or self-care (01) ==
LOC: ONC/OP 12:13
PROVIDERS: ATTEND Internal Medicine Hematology & Oncology
DX: Z79.4 Long term (current) use of insulin; Z88.0 Allergy status to penicillin; Z91.041 Radiographic dye allergy status; Z79.899 Other long term (current) drug therapy; Z79.891 Long term (current) use of opiate analgesic; Z51.11 Encounter for antineoplastic chemotherapy; C20 Malignant neoplasm of rectum; E11.9 Type 2 diabetes mellitus without complications; Z91.013 Allergy to seafood; Z98.890 Other specified postprocedural states; C78.7 Secondary malignant neoplasm of liver and intrahepatic bile duct
CPT/HCPCS: 96366; 96413; 96417; A4216; J0640; J1100; J2405; J7050; J7070; J9035; J9190

== ENCOUNTER 2018-02-13 09:13 | Day surgery (SDC) | payer OTHER ==
[2018-02-13] MEDS ORDERED: Sodium Chloride 0.9% 50 ML ONE (09:33)
[2018-02-13 09:46] VITALS: BP 124/81; TEMP 97.4
[2018-02-13] MEDS ORDERED: Ondansetron 2MG/ML MDV 10 MG, Dexamethasone Sod Phosphate 10 MG in Sodium Chloride 0.9%... IVP SCH (10:00)
[2018-02-13] MEDS ORDERED: DEXTROSE 5% IVPB SCH ×2 (10:00)
[2018-02-13] MEDS ORDERED: WATER IVPB SCH ×2 (10:00)
[2018-02-13] MEDS ORDERED: FLUOROURACIL IVPB SCH ×2 (10:00)
[2018-02-13] MEDS ORDERED: Leucovorin Calcium 50 MG in Dextrose 5% in Water 50 ML IVPB SCH ×2 (10:00)
[2018-02-13] MEDS ORDERED: Bevacizumab 400 MG in Sodium Chloride 0.9% 84 ML IVPB SCH (10:15)
== END 2018-02-13 16:48 | disposition home or self-care (01) ==
LOC: ONC/OP 09:13
PROVIDERS: ATTEND Internal Medicine Hematology & Oncology
DX: Z51.11 Encounter for antineoplastic chemotherapy (principal); C20 Malignant neoplasm of rectum; C78.7 Secondary malignant neoplasm of liver and intrahepatic bile duct; E11.9 Type 2 diabetes mellitus without complications; Z79.4 Long term (current) use of insulin; Z79.891 Long term (current) use of opiate analgesic; Z79.899 Other long term (current) drug therapy; Z88.0 Allergy status to penicillin; Z91.041 Radiographic dye allergy status; Z91.013 Allergy to seafood
CPT/HCPCS: 96367; 96413; 96417; A4216; J0640; J2405; J7050; J7070; J9035; J9190

== ENCOUNTER 2018-02-24 09:00 | Outpatient (CLI) | payer OTHER ==
--- NOTE | 2018-02-24 11:54 | CT ---
CT ABDOMEN AND PELVIS WITH IV AND ENTERIC CONTRAST: INDICATIONS: History of colon cancer with liver metastatic disease; follow-up chemotherapy. COMPARISON: CT abdomen and pelvis dated 11/18/2017 and 08/24/2017. FINDINGS: There is worsening hepatic metastatic disease when compared to the most recent comparison exam, dated 11/18/2017. The index lesion within segment 8 of the right hepatic lobe previously measured 2.3 cm and now measures 3.6 cm. An additional lesion within segment 7 of the right hepatic lobe previously measured 1.7 cm and now measures 2.5 cm. An additional lesion within the caudate lobe previously jesi suring 1.5 cm now measures 2.3 cm. No pathologically enlarged lymph nodes are evident. The pancreas, spleen, and adrenal glands are nor mal appearing. The kidneys are normal appearing. Wall thickening involving the rectum is similar appearing. The right mesorectal lymph node measuring 4 to 5 mm is stable. This is seen on image 71 of series 2. Thickening involving the peritoneal ref lection, as well as the mesorectal fascia, appears similar. No acute osseous abnormality is demonstrated. IMPRESSION: 1. Worsening hepatic metastatic disease. 2. Stable circumferential rectal mass with suspicion for extraserosal spread appears similar. 3. Right-sided mesorectal lymph node on image 71 of series 2 is stable, measuring 4 mm. POS: [facility]
[2018-02-24] MEDS ORDERED: Iopamidol 370 76% 100 ML VIAL ONE (20:19)
== END 2018-02-24 09:01 | disposition home or self-care (01) ==
LOC: CT 09:00
PROVIDERS: ATTEND Internal Medicine Hematology & Oncology
DX: C20 Malignant neoplasm of rectum (principal); C78.7 Secondary malignant neoplasm of liver and intrahepatic bile duct
CPT/HCPCS: 74177

== ENCOUNTER 2018-03-08 16:00 | Emergency (ER) | payer OTHER ==
[2018-03-08] MEDS ORDERED: Fentanyl 100 MCG/2 ML VIAL ONE (17:48)
== END 2018-03-08 19:20 | disposition home or self-care (01) ==
LOC: ERS 16:00
DX: C78.5 Secondary malignant neoplasm of large intestine and rectum (principal); E11.9 Type 2 diabetes mellitus without complications; Z79.4 Long term (current) use of insulin
CPT/HCPCS: 36416; 96374; J3010

== ENCOUNTER 2018-03-20 06:02 | Emergency (ER) | payer OTHER ==
[2018-03-20] MEDS ORDERED: Lorazepam 1 MG TAB ONE (06:37)
[2018-03-20] MEDS ORDERED: Lidocaine Viscous Sol 2% 15 ml UD Cup ONE (06:37)
== END 2018-03-20 07:28 | disposition home or self-care (01) ==
LOC: SCSER 06:02
DX: K59.00 Constipation, unspecified (principal); C20 Malignant neoplasm of rectum; C78.7 Secondary malignant neoplasm of liver and intrahepatic bile duct; E10.9 Type 1 diabetes mellitus without complications; Z79.4 Long term (current) use of insulin
CPT/HCPCS: 99283

== ENCOUNTER 2018-03-21 09:56 | Day surgery (SDC) | payer OTHER ==
[2018-03-21] MEDS ORDERED: Sodium Chloride 0.9% 50 ML ONE (10:09)
[2018-03-21] MEDS ORDERED: Dexamethasone 10 MG/ML VIAL SLOW IVP SCH (10:15)
[2018-03-21] MEDS ORDERED: Leucovorin Calcium 50 MG in Dextrose 5% in Water 50 ML IVPB SCH (10:15)
[2018-03-21] MEDS ORDERED: Ondansetron HCl/PF 4 MG/2 ML Vial IVP SCH (10:15)
[2018-03-21] MEDS ORDERED: WATER IVPB SCH (10:30)
[2018-03-21] MEDS ORDERED: Bevacizumab 400 MG in Sodium Chloride 0.9% 84 ML IVPB SCH (10:30)
[2018-03-21] MEDS ORDERED: FLUOROURACIL IVPB SCH (10:30)
[2018-03-21] MEDS ORDERED: DEXTROSE 5% IVPB SCH (10:30)
[2018-03-21] MEDS ORDERED: Admixture Fee 1 EACH in Dextrose 5% in Water 10 ML IV SCH (10:30)
[2018-03-21] MEDS ORDERED: Dexamethasone 10 MG, Ondansetron 2MG/ML MDV 15 MG in Sodium Chloride 0.9% 50 ML IVPB SCH (10:45)
[2018-03-21 10:47] VITALS: BP 120/68; TEMP 97.6
[2018-03-21] MEDS ORDERED: Lorazepam 2 MG/ML VIAL SLOW IVP SCH (13:15)
== END 2018-03-21 16:45 | disposition home or self-care (01) ==
LOC: ONC/OP 09:56
PROVIDERS: ATTEND Internal Medicine Hematology & Oncology
DX: Z51.11 Encounter for antineoplastic chemotherapy (principal); C20 Malignant neoplasm of rectum; Z88.0 Allergy status to penicillin; Z91.013 Allergy to seafood; Z91.041 Radiographic dye allergy status
CPT/HCPCS: 96367; 96375; 96413; 96415; 96416; 96417; A4216; J0640; J1100; J1642; J2060; J2405; J7050; J7070; J9035; J9190; J9263

== ENCOUNTER 2018-04-04 09:09 | Day surgery (SDC) | payer OTHER ==
[2018-04-04] MEDS ORDERED: Sodium Chloride 0.9% 30 ML ONE (09:17)
[2018-04-04] MEDS ORDERED: DEXTROSE 5% IVPB SCH (09:30)
[2018-04-04] MEDS ORDERED: WATER IVPB SCH (09:30)
[2018-04-04] MEDS ORDERED: Dexamethasone 10 MG, Ondansetron 2MG/ML MDV 15 MG in Sodium Chloride 0.9% 50 ML IVPB SCH (09:30)
[2018-04-04] MEDS ORDERED: FLUOROURACIL IVPB SCH (09:30)
[2018-04-04] MEDS ORDERED: Leucovorin Calcium 50 MG in Dextrose 5% in Water 50 ML IVPB SCH (09:30)
[2018-04-04] MEDS ORDERED: Bevacizumab 400 MG in Sodium Chloride 0.9% 84 ML IVPB SCH (09:45)
[2018-04-04] MEDS ORDERED: Admixture Fee 1 EACH in Dextrose 5% in Water 10 ML IV SCH (10:45)
[2018-04-04 10:58] VITALS: BP 133/86; TEMP 97.8
== END 2018-04-04 14:53 | disposition home or self-care (01) ==
LOC: ONC/OP 09:09
PROVIDERS: ATTEND Internal Medicine Hematology & Oncology
DX: Z51.11 Encounter for antineoplastic chemotherapy (principal); C20 Malignant neoplasm of rectum; E11.9 Type 2 diabetes mellitus without complications; Z88.0 Allergy status to penicillin; Z79.84 Long term (current) use of oral hypoglycemic drugs; Z79.899 Other long term (current) drug therapy
CPT/HCPCS: 96367; 96375; 96413; 96415; 96416; 96417; A4216; J0640; J1100; J1642; J2405; J7050; J7070; J9035; J9190; J9263

== ENCOUNTER 2018-04-09 05:06 | Emergency (ER) | payer OTHER ==
[2018-04-09] MEDS ORDERED: Ondansetron HCl/PF 4 MG/2 ML Vial ONE (05:26)
[2018-04-09 05:40] LABS: Bilirubin Negative (Negative); Blood, Urine Negative (Negative); Clarity Clear (Clear); Glucose, Urine (Dipstick) 500 mg/dL (Negative); Leukocyte Negative (Negative); Nitrite Negative (Negative); Protein, Urine (Dipstick) 100 mg/dL (Neg-Trace); Specific Gravity, Urine 1.015 (1.005-1.030)
[2018-04-09 05:42] LABS: #Eosinphils 0.1 thou/uL (0.0-0.7); #Lymphocytes 1.6 thou/uL (1.20-3.40); #Monocytes 0.3 thou/uL (0.11-0.59); %Basophils 0.8 % (0.0-1.0); %Eosinophils 2.3 % (0.0-10.0); %Lymphocytes 32.5 % (21.0-51.0); %Monocytes 5.7 % (0.0-10.0); %Neutrophils 58.9 % (42.0-75.0); Mean Corpuscular HGB CONC 32.5 g/dL (32.0-36.0); Mean Corpuscular Hemoglobin 25.5 pg (27.0-31.0); Mean Corpuscular Volume 78.4 fl (80.0-94.0); Mean Platelet Volume 6.5 fL (7.4-10.4); Platelet Count 333 thou/uL (130-400); RBC Distribution Width 14.4 % (11.5-14.5); White Blood Cell (WBC) Count 5.1 thou/uL (4.8-10.8)
[2018-04-09 05:44] LABS: Bacteria/HPF None Seen HPF (None Seen); Hyaline Casts/LPF 0-3 HYALINE CAST LPF (0-3 Hyaline); RBC/HPF 0-3 HPF (0-3); Squamous Epithelial 0-3 HPF (0-3); WBC/HPF 0-3 HPF (0-3)
[2018-04-09 05:50] LABS: ALT (SGPT) 30 U/L (8-55); AST (SGOT) 31 U/L (5-34); Alkaline Phosphatase 360 U/L (40-150); Anion Gap 15 mmol/L (10-20); BUN (Urea Nitrogen) 11 mg/dL (8.9-20.6); Bilirubin, Total 0.7 mg/dL (0.2-1.2); Calc. Creatinine Clearance 0 mL/min (70-130); Calcium 9.7 mg/dL (7.8-10.44); Carbon Dioxide 25 mmol/L (22-29); Chloride 98 mmol/L (98-107); Estimated GFR-MDRD Greater than 90; Globulin 3.8 g/dL (2.4-3.5); Glucose 348 mg/dL (70-105); Potassium 4.1 mmol/L (3.5-5.1); Protein, Total 7.8 g/dL (6.0-8.3); Sodium 134 mmol/L (136-145)
[2018-04-09] MEDS ORDERED: Iopamidol 370 76% 100 ML VIAL ONE (09:00)
--- NOTE | 2018-04-09 09:15 | CT ---
CT OF ABDOMEN AND PELVIS PERFORMED WITH IV CONTRAST ENHANCEMENT: Date: 04/09/18 HISTORY: Patient with rectal carcinoma, on chemotherapy, who presents with abdominal pain and increased bowel movements. Pain worse in the right lower quadrant. Does have a history of appendectomy. COMPARISON: 02/27/18. FINDINGS: The lung bases are clear of any infiltrative process. Diffuse hepatic metastatic disease is noted. It appears to be fairly similar to the prior exam. The s pleen, pancreas, and gallbladder regions are unremarkable. Right and left adrenal glands, and right and left kidneys are normal in size. There is no significant periaortic adenopathy. There are small mesenteric lymph nodes that are similar to the previous exam. No signs for bowel obstruction. CT of pelvis was performed with IV contrast enhancement. The bladder is mildly distended. There is re ctal wall thickening with wall thickening extending up into the rectosigmoid colon. This appears to b e a fairly similar finding to the previous examination. There is a slight difference in some of the a pparent wall thickening and appears to extend more proximally into the sigmoid colon. There is some m inimal fat stranding. Some of this may just be related to underdistention. I do not see any signs of diverticulitis change. No appendix is identified, compatible with history. IMPRESSION: 1. Fairly stable overall appearance to the abdomen and pelvis. The only slight difference may be reji t there is slightly more prominent proximal sigmoid wall thickening with some minimal pericolonic fat stranding. Wall thickening extends into the rectum region. No signs of any abscess collection or any type of fluid collection. 2. Stable hepatic metastasis. POS: [facility]
== END 2018-04-09 08:38 | disposition home or self-care (01) ==
LOC: SCSER 05:06
DX: R10.31 Right lower quadrant pain (principal); E10.9 Type 1 diabetes mellitus without complications; C20 Malignant neoplasm of rectum; C78.7 Secondary malignant neoplasm of liver and intrahepatic bile duct
CPT/HCPCS: 74177; 80053; 81003; 81015; 83690; 85025; 96361; 96374; 96375; 96376; J2270; J2405

== ENCOUNTER 2018-04-18 09:55 | Day surgery (SDC) | payer OTHER ==
[2018-04-18] MEDS ORDERED: Sodium Chloride 0.9% 30 ML ONE (10:13)
[2018-04-18] MEDS ORDERED: Leucovorin Calcium 50 MG in Dextrose 5% in Water 50 ML IVPB SCH (10:15)
[2018-04-18] MEDS ORDERED: SODIUM CHLORIDE 0.9% IVP SCH (10:15)
[2018-04-18] MEDS ORDERED: DEXAMETHASONE IVP SCH (10:15)
[2018-04-18] MEDS ORDERED: ONDANSETRON IVP SCH (10:15)
[2018-04-18] MEDS ORDERED: SODIUM CHLORIDE 0.9% IVPB SCH (10:15)
[2018-04-18] MEDS ORDERED: FLUOROURACIL IVPB SCH ×2 (10:15→10:45)
[2018-04-18] MEDS ORDERED: WATER IVPB SCH (10:45)
[2018-04-18] MEDS ORDERED: Bevacizumab 400 MG in Sodium Chloride 0.9% 84 ML IVPB SCH (10:45)
[2018-04-18] MEDS ORDERED: DEXTROSE 5% IVPB SCH (10:45)
[2018-04-18 11:24] VITALS: BP 129/83; TEMP 98.1
[2018-04-18] MEDS ORDERED: HYDROcodone/Acetaminophen 10/325 mg Tablet PO SCH (13:15)
== END 2018-04-18 16:53 | disposition home or self-care (01) ==
LOC: ONC/OP 09:55
PROVIDERS: ATTEND Internal Medicine Hematology & Oncology
DX: Z51.11 Encounter for antineoplastic chemotherapy (principal); C20 Malignant neoplasm of rectum; C78.7 Secondary malignant neoplasm of liver and intrahepatic bile duct; E11.9 Type 2 diabetes mellitus without complications; Z88.0 Allergy status to penicillin; Z79.899 Other long term (current) drug therapy
CPT/HCPCS: 96367; 96413; 96415; 96416; 96417; A4216; J0640; J1100; J2405; J7050; J7070; J9035; J9190; J9263

== ENCOUNTER 2018-05-02 10:00 | Day surgery (SDC) | payer OTHER ==
[2018-05-02] MEDS ORDERED: Dexamethasone 10 MG, Ondansetron 2MG/ML MDV 15 MG in Sodium Chloride 0.9% 50 ML IVPB SCH (10:15)
[2018-05-02] MEDS ORDERED: Leucovorin Calcium 50 MG in Dextrose 5% in Water 50 ML IVPB SCH (10:15)
[2018-05-02] MEDS ORDERED: FLUOROURACIL IVPB SCH (10:30)
[2018-05-02] MEDS ORDERED: DEXTROSE 5% IVPB SCH (10:30)
[2018-05-02] MEDS ORDERED: WATER IVPB SCH (10:30)
[2018-05-02] MEDS ORDERED: Bevacizumab 400 MG in Sodium Chloride 0.9% 84 ML IVPB SCH (10:30)
[2018-05-02] MEDS ORDERED: Sodium Chloride 0.9% 30 ML ONE (10:32)
[2018-05-02 10:35] VITALS: BP 126/82; TEMP 97.8
== END 2018-05-02 15:00 | disposition home or self-care (01) ==
LOC: ONC/OP 10:00
PROVIDERS: ATTEND Internal Medicine Hematology & Oncology
DX: Z51.11 Encounter for antineoplastic chemotherapy (principal); C20 Malignant neoplasm of rectum; C78.7 Secondary malignant neoplasm of liver and intrahepatic bile duct; E11.9 Type 2 diabetes mellitus without complications; Z88.0 Allergy status to penicillin; Z80.0 Family history of malignant neoplasm of digestive organs
CPT/HCPCS: 80053; 82248; 82378; 83615; 84100; 84550; 96367; 96413; 96415; 96416; 96417; A4216; J0640; J1100; J1642; J2405; J7050; J7070; J9035; J9190; J9263

== ENCOUNTER 2018-05-16 10:04 | Day surgery (SDC) | payer OTHER ==
[2018-05-16] MEDS ORDERED: DEXAMETHASONE IVP SCH (10:30)
[2018-05-16] MEDS ORDERED: Leucovorin Calcium 50 MG in Dextrose 5% in Water 50 ML IVPB SCH (10:30)
[2018-05-16] MEDS ORDERED: ONDANSETRON IVP SCH (10:30)
[2018-05-16] MEDS ORDERED: DEXTROSE 5% IVPB SCH (10:30)
[2018-05-16] MEDS ORDERED: FLUOROURACIL IVPB SCH (10:30)
[2018-05-16] MEDS ORDERED: Bevacizumab 400 MG in Sodium Chloride 0.9% 84 ML IVPB SCH (10:30)
[2018-05-16] MEDS ORDERED: SODIUM CHLORIDE 0.9% IVP SCH (10:30)
[2018-05-16] MEDS ORDERED: WATER IVPB SCH (10:30)
[2018-05-16] MEDS ORDERED: Sodium Chloride 0.9% 40 ML ONE (10:46)
[2018-05-16 14:22] VITALS: BP 137/75; TEMP 98
== END 2018-05-16 15:37 | disposition home or self-care (01) ==
LOC: ONC/OP 10:04
PROVIDERS: ATTEND Internal Medicine Hematology & Oncology
DX: Z51.11 Encounter for antineoplastic chemotherapy (principal); C20 Malignant neoplasm of rectum; C78.7 Secondary malignant neoplasm of liver and intrahepatic bile duct; E11.9 Type 2 diabetes mellitus without complications; Z88.0 Allergy status to penicillin
CPT/HCPCS: 96367; 96375; 96413; 96415; 96416; 96417; A4216; J0640; J1100; J2405; J7050; J7070; J9035; J9190; J9263

== ENCOUNTER 2018-05-19 18:42 | Emergency (ER) | payer OTHER ==
[2018-05-19] MEDS ORDERED: Bacitracin Zinc 1 Packet ONE (20:15)
[2018-05-19] MEDS ORDERED: Lidocaine 1% w/Epinephrine 1:100K 20 ML VIAL ONE (20:15)
[2018-05-19] MEDS ORDERED: Adacel (T-DAP) 0.5 ML VIAL ONE (20:54)
== END 2018-05-19 21:13 | disposition home or self-care (01) ==
LOC: ERS 18:42
DX: L02.213 Cutaneous abscess of chest wall (principal); E10.9 Type 1 diabetes mellitus without complications
CPT/HCPCS: 10060; 87070; 87077; 87186; 87205; 90471; 90715; J2001

== ENCOUNTER 2018-05-21 16:05 | Emergency (ER) | payer OTHER | END 2018-05-21 17:20 | disposition home or self-care (01) | LOC: ERS 16:05 | DX: Z48.817 Encounter for surgical aftercare following surgery on the skin and subcutaneous tissue (principal); E10.9 Type 1 diabetes mellitus without complications | CPT/HCPCS: 99282 ==

== ENCOUNTER 2018-05-30 11:21 | Day surgery (SDC) | payer OTHER ==
[2018-05-30] MEDS ORDERED: Leucovorin Calcium 50 MG in Dextrose 5% in Water 50 ML IVPB SCH (11:45)
[2018-05-30] MEDS ORDERED: WATER IVPB SCH (11:45)
[2018-05-30] MEDS ORDERED: FLUOROURACIL IVPB SCH (11:45)
[2018-05-30] MEDS ORDERED: Dexamethasone 10 MG/ML VIAL SLOW IVP SCH (11:45)
[2018-05-30] MEDS ORDERED: SODIUM CHLORIDE 0.9% IVPB SCH (11:45)
[2018-05-30] MEDS ORDERED: Ondansetron HCl/PF 15 MG in Sodium Chloride 0.9% 50 ML IVPB SCH (11:45)
[2018-05-30] MEDS ORDERED: Bevacizumab 400 MG in Sodium Chloride 0.9% 84 ML IVPB SCH (11:45)
[2018-05-30] MEDS ORDERED: ONDANSETRON HCL IVPB SCH (11:45)
[2018-05-30] MEDS ORDERED: DEXAMETHASONE IVPB SCH (11:45)
[2018-05-30] MEDS ORDERED: DEXTROSE 5% IVPB SCH (11:45)
[2018-05-30 12:03] VITALS: BP 117/76; TEMP 97.5
== END 2018-05-30 16:55 | disposition home or self-care (01) ==
LOC: ONC/OP 11:21
PROVIDERS: ATTEND Internal Medicine Hematology & Oncology
DX: Z51.11 Encounter for antineoplastic chemotherapy (principal); C20 Malignant neoplasm of rectum; C78.7 Secondary malignant neoplasm of liver and intrahepatic bile duct; E11.9 Type 2 diabetes mellitus without complications; Z88.0 Allergy status to penicillin; Z79.899 Other long term (current) drug therapy
CPT/HCPCS: 96367; 96413; 96415; 96417; J0640; J1100; J2405; J7050; J7070; J9035; J9190; J9263

== ENCOUNTER 2018-06-17 05:58 | Emergency (ER) | payer OTHER ==
[2018-06-17 06:33] LABS: #Lymphocytes 1.6 thou/uL (1.20-3.40); #Monocytes 0.2 thou/uL (0.11-0.59); #Neutrophils 3.1 thou/uL (1.40-6.50); %Eosinophils 0.8 % (0.0-10.0); %Lymphocytes 31.8 % (21.0-51.0); %Monocytes 4.3 % (0.0-10.0); %Neutrophils 62.1 % (42.0-75.0); Hemoglobin 13.7 g/dL (14.0-18.0); Mean Corpuscular HGB CONC 33.1 g/dL (32.0-36.0); Mean Corpuscular Hemoglobin 25.7 pg (27.0-31.0); Mean Corpuscular Volume 77.5 fL (78.0-98.0); Mean Platelet Volume 6.2 fL (7.4-10.4); Platelet Count 297 thou/uL (130-400); RBC Distribution Width 15.2 % (11.5-14.5); Red Blood Cell (RBC) Count 5.35 mill/uL (4.70-6.10); White Blood Cell (WBC) Count 5.1 thou/uL (4.8-10.8)
[2018-06-17] MEDS ORDERED: Lorazepam 2 MG/ML VIAL ONE (06:34)
[2018-06-17 06:41] LABS: Anion Gap 15 mmol/L (10-20); BUN (Urea Nitrogen) 14 mg/dL (8.9-20.6); Calc. Creatinine Clearance 0 mL/min (70-130); Calcium 9.4 mg/dL (7.8-10.44); Carbon Dioxide 21 mmol/L (22-29); Chloride 99 mmol/L (98-107); Estimated GFR-MDRD Greater than 90; Glucose 445 mg/dL (70-105); Potassium 4.3 mmol/L (3.5-5.1); Sodium 131 mmol/L (136-145)
== END 2018-06-17 07:24 | disposition home or self-care (01) ==
LOC: SCSER 05:58
DX: M62.838 Other muscle spasm (principal); C18.9 Malignant neoplasm of colon, unspecified; E10.9 Type 1 diabetes mellitus without complications; Z79.899 Other long term (current) drug therapy
CPT/HCPCS: 80048; 83605; 85025; 87070; 87077; 87186; 87205; 96361; 96374; J2060

== ENCOUNTER 2018-06-23 08:44 | Outpatient (CLI) | payer OTHER ==
[2018-06-23] MEDS ORDERED: Iopamidol 370 76% 100 ML VIAL ONE (10:08)
--- NOTE | 2018-06-23 10:29 | CT ---
CT ABDOMEN AND PELVIS WITH IV CONTRAST: Date; 06/23/18 Multiple axial tomograms obtained through the abdomen and pelvis with IV enhancement. Oral contrast w as administered. INDICATION: Colon cancer. History of rectal cancer with liver mets. Comparison made to the most recent CT abdomen and pelvis dated 04/09/18. Also, comparison made to exa m from 02/27/18. FINDINGS: Lung bases clear. Numerous low density lesions are seen throughout the liver. These appear unchanged as to size and num omari of lesions. Spleen and pancreas unremarkable. Stomach and duodenum unremarkable. Adrenal glands and kidneys unremarkable. Small bowel loops show nonspecific distention without dilatation. Stool throughout the colon. The bowel wall thickening in the rectosigmoid region is again seen with luminal narrowing within the rectum. This appears unchanged. The 04/09/18 exam described possible mural thickening in the sigmoid. This is not apparent today and may have been due to poor distention previously. The mural thickening and mass involves the rectum and rectosigmoid junction. This does not appear changed when compared t o 02/27/18. Aorta is normal caliber. No evidence of periaortic adenopathy. There are nonspecific mesenteric lymph nodes seen. Numerous subcentimeter nodes are seen at the mesenteric root. There is a 1.2 cm lymph no de in the mesentery mid abdomen. There is a 1.0 cm mesenteric lymph node at the level of the aortic b ifurcation, which is stable. IMPRESSION: 1. The liver lesions appear stable from prior exam. 2. The rectal mass appears unchanged when compared to 02/27/18. 3. Nonspecific mesenteric lymph nodes appear stable. POS: [facility]
== END 2018-06-23 08:45 | disposition home or self-care (01) ==
LOC: CT 08:44
PROVIDERS: ATTEND Internal Medicine Hematology & Oncology
DX: C18.9 Malignant neoplasm of colon, unspecified (principal); K76.9 Liver disease, unspecified; R19.09 Other intra-abdominal and pelvic swelling, mass and lump
CPT/HCPCS: 74177

== ENCOUNTER 2018-06-27 11:53 | Day surgery (SDC) | payer OTHER ==
[2018-06-27] MEDS ORDERED: Sodium Chloride 0.9% 30 ML ONE (12:09)
[2018-06-27 12:12] VITALS: BP 130/89; TEMP 98.9
[2018-06-27] MEDS ORDERED: Leucovorin Calcium 50 MG in Dextrose 5% in Water 50 ML IVPB SCH (12:30)
[2018-06-27] MEDS ORDERED: FLUOROURACIL IVPB SCH (12:30)
[2018-06-27] MEDS ORDERED: ONDANSETRON IVP SCH (12:30)
[2018-06-27] MEDS ORDERED: WATER IVPB SCH (12:30)
[2018-06-27] MEDS ORDERED: Ondansetron 2MG/ML MDV 15 MG in Sodium Chloride 0.9% 50 ML IVP SCH (12:30)
[2018-06-27] MEDS ORDERED: DEXTROSE 5% IVP SCH (12:30)
[2018-06-27] MEDS ORDERED: Dexamethasone 10 MG in Sodium Chloride 0.9% 50 ML IVPB SCH (12:30)
[2018-06-27] MEDS ORDERED: DEXTROSE 5% IVPB SCH (12:30)
[2018-06-27] MEDS ORDERED: WATER IVP SCH (12:30)
[2018-06-27] MEDS ORDERED: Bevacizumab 400 MG in Sodium Chloride 0.9% 84 ML IVPB SCH (12:45)
== END 2018-06-27 17:27 | disposition home or self-care (01) ==
LOC: ONC/OP 11:53
PROVIDERS: ATTEND Internal Medicine Hematology & Oncology
DX: Z51.11 Encounter for antineoplastic chemotherapy (principal); C20 Malignant neoplasm of rectum; E11.9 Type 2 diabetes mellitus without complications; Z88.0 Allergy status to penicillin; Z79.899 Other long term (current) drug therapy; Z79.84 Long term (current) use of oral hypoglycemic drugs; Z91.041 Radiographic dye allergy status
CPT/HCPCS: 80053; 82248; 82378; 83615; 84100; 84550; 96367; 96375; 96413; 96415; 96416; 96417; A4216; J0640; J1100; J2405; J7050; J7070; J9035; J9190; J9263

== ENCOUNTER 2018-07-11 09:19 | Day surgery (SDC) | payer OTHER ==
[2018-07-11] MEDS ORDERED: DEXAMETHASONE IVP SCH (09:30)
[2018-07-11] MEDS ORDERED: ADMIXTURE FEE IVP SCH (09:30)
[2018-07-11] MEDS ORDERED: ONDANSETRON IVP SCH (09:30)
[2018-07-11] MEDS ORDERED: [UNRECOGNIZED DRUG - OTHER] IVP SCH (09:30)
[2018-07-11] MEDS ORDERED: Sodium Chloride 0.9% 30 ML ONE (09:31)
[2018-07-11] MEDS ORDERED: Bevacizumab 400 MG in Sodium Chloride 0.9% 84 ML IVPB SCH (09:45)
[2018-07-11] MEDS ORDERED: WATER IVPB SCH (09:45)
[2018-07-11] MEDS ORDERED: Leucovorin Calcium 50 MG, Admixture Fee 1 EACH in Dextrose 5% in Water 50 ML IVPB SCH (09:45)
[2018-07-11] MEDS ORDERED: DEXTROSE 5% IVPB SCH (09:45)
[2018-07-11] MEDS ORDERED: FLUOROURACIL IVPB SCH (09:45)
[2018-07-11 10:14] VITALS: BP 124/80; TEMP 97.8
== END 2018-07-11 15:08 | disposition home or self-care (01) ==
LOC: ONC/OP 09:19
PROVIDERS: ATTEND Internal Medicine Hematology & Oncology
DX: Z51.11 Encounter for antineoplastic chemotherapy (principal); C20 Malignant neoplasm of rectum; E11.9 Type 2 diabetes mellitus without complications; Z88.0 Allergy status to penicillin; Z79.899 Other long term (current) drug therapy; Z79.84 Long term (current) use of oral hypoglycemic drugs
CPT/HCPCS: 96367; 96413; 96415; 96416; 96417; A4216; J0640; J1100; J2405; J7050; J7070; J9035; J9190; J9263

== ENCOUNTER 2018-07-25 08:50 | Day surgery (SDC) | payer OTHER ==
[2018-07-25] MEDS ORDERED: Sodium Chloride 0.9% 30 ML ONE (09:00)
[2018-07-25] MEDS ORDERED: ADMIXTURE FEE IVPB SCH (09:00)
[2018-07-25] MEDS ORDERED: [UNRECOGNIZED DRUG - OTHER] IVPB SCH (09:00)
[2018-07-25] MEDS ORDERED: DEXAMETHASONE IVPB SCH (09:00)
[2018-07-25] MEDS ORDERED: ONDANSETRON IVPB SCH ×2 (09:00→09:30)
[2018-07-25] MEDS ORDERED: Bevacizumab 400 MG in Sodium Chloride 0.9% 84 ML IVPB SCH (09:15)
[2018-07-25] MEDS ORDERED: DEXTROSE 5% IVPB SCH (09:15)
[2018-07-25] MEDS ORDERED: Leucovorin Calcium 50 MG in Dextrose 5% in Water 50 ML IVPB SCH (09:15)
[2018-07-25] MEDS ORDERED: FLUOROURACIL IVPB SCH (09:15)
[2018-07-25] MEDS ORDERED: WATER IVPB SCH (09:15)
[2018-07-25] MEDS ORDERED: DEXAMETHASONE SOD PHOSPHATE IVPB SCH (09:30)
[2018-07-25] MEDS ORDERED: [UNRECOGNIZED DRUG - OTHER] IVPB SCH (09:30)
[2018-07-25] MEDS ORDERED: Lorazepam 2 MG/ML VIAL SLOW IVP SCH (15:00)
== END 2018-07-25 15:53 | disposition home or self-care (01) ==
LOC: ONC/OP 08:50
PROVIDERS: ATTEND Internal Medicine Hematology & Oncology
DX: Z51.11 Encounter for antineoplastic chemotherapy (principal); C20 Malignant neoplasm of rectum; E11.9 Type 2 diabetes mellitus without complications; Z88.0 Allergy status to penicillin; Z79.84 Long term (current) use of oral hypoglycemic drugs; Z79.899 Other long term (current) drug therapy
CPT/HCPCS: 36415; 82378; 96367; 96375; 96413; 96415; 96416; 96417; A4216; J0640; J1100; J2060; J2405; J7050; J7070; J9035; J9190; J9263

== ENCOUNTER 2018-07-28 18:36 | Emergency (ER) | payer OTHER ==
[2018-07-28] MEDS ORDERED: Metoclopramide HCl 10 MG/2 ML VIAL ONE (19:08)
[2018-07-28] MEDS ORDERED: diphenhydrAMINE 50 MG/ML VIAL ONE (19:08)
[2018-07-28 19:13] LABS: #Monocytes 0.2 thou/uL (0.11-0.59); #Neutrophils 2.1 thou/uL (1.40-6.50); %Basophils 0.5 % (0.0-1.0); %Eosinophils 0.5 % (0.0-10.0); %Lymphocytes 29.6 % (21.0-51.0); %Monocytes 4.9 % (0.0-10.0); %Neutrophils 64.5 % (42.0-75.0); Hemoglobin 12.1 g/dL (14.0-18.0); Mean Corpuscular HGB CONC 31.7 g/dL (32.0-36.0); Mean Corpuscular Hemoglobin 26.2 pg (27.0-31.0); Mean Corpuscular Volume 82.7 fL (78.0-98.0); Mean Platelet Volume 6.5 fL (7.4-10.4); Platelet Count 152 thou/uL (130-400); RBC Distribution Width 16.1 % (11.5-14.5); Red Blood Cell (RBC) Count 4.61 mill/uL (4.70-6.10); White Blood Cell (WBC) Count 3.3 thou/uL (4.8-10.8)
[2018-07-28 19:29] LABS: ALT (SGPT) 58 U/L (8-55); AST (SGOT) 69 U/L (5-34); Albumin 3.1 g/dL (3.5-5.0); Alkaline Phosphatase 335 U/L (40-150); Anion Gap 15 mmol/L (10-20); BUN (Urea Nitrogen) 17 mg/dL (8.9-20.6); Bilirubin, Total 1.4 mg/dL (0.2-1.2); Calc. Creatinine Clearance 0 mL/min (70-130); Calcium 9.3 mg/dL (7.8-10.44); Carbon Dioxide 21 mmol/L (22-29); Chloride 99 mmol/L (98-107); Estimated GFR-MDRD 86; Globulin 3.2 g/dL (2.4-3.5); Glucose 513 mg/dL (70-105); Potassium 4.1 mmol/L (3.5-5.1); Protein, Total 6.3 g/dL (6.0-8.3); Sodium 131 mmol/L (136-145)
--- NOTE | 2018-07-28 19:59 | CT ---
HEAD CT WITHOUT CONTRAST: 07/28/18 COMPARISON: 07/20/11. HISTORY: Fall, trauma, pain. TECHNIQUE: Serial axial CT imaging at 4.8 mm intervals from vertex through skull base without contrast. FINDINGS: The imaged paranasal sinuses and mastoid air cells are well aerated. No displaced calvarial fracture. No intracranial hemorrhage, midline shift, mass effect or ventricular enlargement. IMPRESSION: No intracranial hemorrhage or displaced calvarial fracture. POS: [facility]
--- NOTE | 2018-07-28 20:09 | CT ---
CERVICAL SPINE CT WITHOUT CONTRAST: 07/28/18 COMPARISON: None. HISTORY: Fall, trauma, pain. TECHNIQUE: Serial axial CT imaging at 2 mm intervals from skull base through lung apices without contrast. Coron al and sagittal reformatted imaging obtained. FINDINGS: The C1 ring, atlantoaxial interspace, craniocervical junction, cervicothoracic junction, occipital co ndyles, dens, and C1-2 articulation appear within normal limits. The imaged lung apices appear unremarkable as well. No anterolisthesis or retrolisthesis. No acute fracture or evidence of dislocation. IMPRESSION: No acute osseous abnormality. POS: [facility]
== END 2018-07-28 20:40 | disposition home or self-care (01) ==
LOC: SCSER 18:36
DX: S00.03XA Contusion of scalp, initial encounter (principal); E10.65 Type 1 diabetes mellitus with hyperglycemia; C18.9 Malignant neoplasm of colon, unspecified; C78.7 Secondary malignant neoplasm of liver and intrahepatic bile duct; W01.10XA Fall on same level from slipping, tripping and stumbling with subsequent striking against unspecified object, initial encounter
CPT/HCPCS: 70450; 72125; 80053; 85025; 96365; 96375; J1200; J2765

== ENCOUNTER 2018-07-30 06:02 | Emergency (ER) | payer OTHER ==
[2018-07-30] MEDS ORDERED: Ketorolac Tromethamine 30 MG/ML VIAL ONE (06:25)
[2018-07-30] MEDS ORDERED: Fentanyl 100 MCG/2 ML VIAL ONE (06:25)
[2018-07-30] MEDS ORDERED: Metoclopramide HCl 10 MG/2 ML VIAL ONE (06:25)
[2018-07-30 06:29] LABS: #Lymphocytes 1.2 thou/uL (1.20-3.40); #Monocytes 0.3 thou/uL (0.11-0.59); #Neutrophils 1.4 thou/uL (1.40-6.50); %Basophils 0.8 % (0.0-1.0); %Eosinophils 1.3 % (0.0-10.0); %Lymphocytes 40.6 % (21.0-51.0); %Monocytes 10.6 % (0.0-10.0); %Neutrophils 46.7 % (42.0-75.0); Hemoglobin 12.3 g/dL (14.0-18.0); Mean Corpuscular HGB CONC 32.1 g/dL (32.0-36.0); Mean Corpuscular Hemoglobin 27.1 pg (27.0-31.0); Mean Corpuscular Volume 84.5 fL (78.0-98.0); Mean Platelet Volume 7.2 fL (7.4-10.4); Platelet Count 236 thou/uL (130-400); RBC Distribution Width 16.2 % (11.5-14.5); Red Blood Cell (RBC) Count 4.55 mill/uL (4.70-6.10); White Blood Cell (WBC) Count 2.9 thou/uL (4.8-10.8)
[2018-07-30 06:44] LABS: ALT (SGPT) 43 U/L (8-55); AST (SGOT) 40 U/L (5-34); Albumin 3.2 g/dL (3.5-5.0); Alkaline Phosphatase 341 U/L (40-150); Anion Gap 14 mmol/L (10-20); BUN (Urea Nitrogen) 11 mg/dL (8.9-20.6); Bilirubin, Total 0.8 mg/dL (0.2-1.2); CK (CPK) 51 U/L (30-200); Calc. Creatinine Clearance 0 mL/min (70-130); Calcium 9.3 mg/dL (7.8-10.44); Carbon Dioxide 22 mmol/L (22-29); Chloride 102 mmol/L (98-107); Estimated GFR-MDRD Greater than 90; Globulin 3.6 g/dL (2.4-3.5); Glucose 279 mg/dL (70-105); Protein, Total 6.8 g/dL (6.0-8.3); Sodium 134 mmol/L (136-145)
--- NOTE | 2018-07-30 09:57 | CT ---
PRELIMINARY REPORT/[facility]/EMERGENTY AFTER-HOURS PROCEDURE CT Head Without Intravenous Contrast CLINICAL HISTORY: 28 years old, male; Pain; Headache; Patient HX: Patient's family members state that patient's head samaniego s been hurting since tuesday when patient came in for head pain at that time, pain worse over last 2 hours, patient will not answer questions, patient repeating "i want to go home" when asked questions at this time. TECHNIQUE: Axial computed tomography images of the head/brain without intravenous contrast. COMPARISON: No relevant prior studies available. FINDINGS: No definite acute skull fracture. Included paranasal sinuses are essentially clear. No acute intracranial hemorrhage or mass effect. Ventricle size is normal for age. No definite acute infarct by CT. IMPRESSION: No acute intracranial bleed or mass effect. Thank you for allowing us to participate in the care of your patient. Dictated and Authenticated by: Guy Rollins MD 07/30/2018 6:53 AM Central Time ([place] & [place]) FINAL REPORT CT HEAD NONCONTRAST: DATE: 07/30/2018. TIME: Performed on an emergency base is 0630 hours. HISTORY: Headache. COMPARISON: 07/28/2018. FINDINGS: Agree with the preliminary report by Dr. Rollins from [facility]. No acute intracranial abnorma lities are demonstrated. POS: [facility]
== END 2018-07-30 07:48 | disposition home or self-care (01) ==
LOC: ERS 06:02
DX: R51 Headache (principal); E10.9 Type 1 diabetes mellitus without complications; Z79.899 Other long term (current) drug therapy
CPT/HCPCS: 36415; 70450; 80053; 82010; 82550; 85025; 96365; 96375; J1885; J2765; J3010

== ENCOUNTER 2018-08-01 18:09 | Emergency (ER) | payer OTHER ==
[2018-08-01] MEDS ORDERED: Promethazine HCl 25 MG/ML VIAL ONE (20:34)
[2018-08-01] MEDS ORDERED: Morphine 4 MG/ML VIAL ONE (20:34)
== END 2018-08-01 21:33 | disposition home or self-care (01) ==
LOC: SCSER 18:09
DX: G44.309 Post-traumatic headache, unspecified, not intractable (principal); Z79.891 Long term (current) use of opiate analgesic; Z79.899 Other long term (current) drug therapy; Z79.4 Long term (current) use of insulin
CPT/HCPCS: 96372; J2270; J2550

== ENCOUNTER 2018-08-08 10:30 | Day surgery (SDC) | payer OTHER ==
[2018-08-08] MEDS ORDERED: WATER IVPB SCH (10:45)
[2018-08-08] MEDS ORDERED: DEXTROSE 5% IVPB SCH (10:45)
[2018-08-08] MEDS ORDERED: DEXAMETHASONE IVP SCH (10:45)
[2018-08-08] MEDS ORDERED: Leucovorin Calcium 50 MG in Dextrose 5% in Water 50 ML IVPB SCH (10:45)
[2018-08-08] MEDS ORDERED: FLUOROURACIL IVPB SCH (10:45)
[2018-08-08] MEDS ORDERED: Bevacizumab 400 MG in Sodium Chloride 0.9% 84 ML IVPB SCH (10:45)
[2018-08-08] MEDS ORDERED: SODIUM CHLORIDE 0.9% IVP SCH (10:45)
[2018-08-08] MEDS ORDERED: ONDANSETRON IVP SCH (10:45)
[2018-08-08] MEDS ORDERED: Ondansetron 2MG/ML MDV 15 MG, Dexamethasone Sod Phosphate 10 MG in Sodium Chloride 0.9%... IVP SCH (11:00)
[2018-08-08] MEDS ORDERED: Sodium Chloride 0.9% 40 ML ONE (11:02)
[2018-08-08 12:36] VITALS: BP 118/77; TEMP 98.2
== END 2018-08-08 16:43 | disposition home or self-care (01) ==
LOC: ONC/OP 10:30
PROVIDERS: ATTEND Internal Medicine Hematology & Oncology
DX: Z51.11 Encounter for antineoplastic chemotherapy (principal); C20 Malignant neoplasm of rectum; E11.9 Type 2 diabetes mellitus without complications; Z79.84 Long term (current) use of oral hypoglycemic drugs; Z79.899 Other long term (current) drug therapy
CPT/HCPCS: 90471; 90686; 96367; 96372; 96413; 96415; 96416; 96417; G0008; J0640; J1100; J2405; J7050; J7070; J9035; J9190; J9263

== ENCOUNTER 2018-08-22 09:13 | Day surgery (SDC) | payer OTHER ==
[2018-08-22] MEDS ORDERED: Sodium Chloride 0.9% 30 ML ONE (09:20)
[2018-08-22 09:46] VITALS: BP 119/94; TEMP 97.5
[2018-08-22] MEDS ORDERED: Ondansetron 2MG/ML MDV 15 MG, Dexamethasone Sod Phosphate 10 MG in Sodium Chloride 0.9%... IVP SCH (10:15)
[2018-08-22] MEDS ORDERED: Leucovorin Calcium 50 MG in Dextrose 5% in Water 50 ML IVPB SCH (10:30)
[2018-08-22] MEDS ORDERED: Bevacizumab 400 MG in Sodium Chloride 0.9% 84 ML IVPB SCH (10:30)
[2018-08-22] MEDS: WATER IVPB SCH ×2 (10:34→10:35)
[2018-08-22] MEDS: DEXTROSE 5% IVPB SCH ×2 (10:34→10:35)
[2018-08-22] MEDS: FLUOROURACIL IVPB SCH ×2 (10:34→10:35)
== END 2018-08-22 16:34 | disposition home or self-care (01) ==
LOC: ONC/OP 09:13
PROVIDERS: ATTEND Internal Medicine Hematology & Oncology
DX: Z51.11 Encounter for antineoplastic chemotherapy (principal); C20 Malignant neoplasm of rectum; E11.9 Type 2 diabetes mellitus without complications; Z79.899 Other long term (current) drug therapy; Z88.0 Allergy status to penicillin; Z91.041 Radiographic dye allergy status; Z91.013 Allergy to seafood
CPT/HCPCS: 36415; 80053; 82248; 82378; 83615; 84100; 84550; 96367; 96375; 96413; 96415; 96416; 96417; J0640; J2405; J7050; J7070; J9035; J9190; J9263

== ENCOUNTER 2018-08-30 21:51 | Inpatient (IN) | payer OTHER ==
[2018-08-30 22:32] LABS: #Eosinphils 0.1 thou/uL (0.0-0.7); #Lymphocytes 1.8 thou/uL (1.20-3.40); #Monocytes 0.6 thou/uL (0.11-0.59); #Neutrophils 3.5 thou/uL (1.40-6.50); %Basophils 0.8 % (0.0-1.0); %Eosinophils 1.8 % (0.0-10.0); %Lymphocytes 29.7 % (21.0-51.0); %Monocytes 10.4 % (0.0-10.0); %Neutrophils 57.4 % (42.0-75.0); Hemoglobin 13.4 g/dL (14.0-18.0); Mean Corpuscular Hemoglobin 27.8 pg (27.0-31.0); Mean Corpuscular Volume 86.8 fL (78.0-98.0); Mean Platelet Volume 7.1 fL (7.4-10.4); Platelet Count 221 thou/uL (130-400); RBC Distribution Width 16.2 % (11.5-14.5); Red Blood Cell (RBC) Count 4.82 mill/uL (4.70-6.10)
[2018-08-30 23:16] LABS: ALT (SGPT) 41 U/L (8-55); AST (SGOT) 58 U/L (5-34); Albumin 3.8 g/dL (3.5-5.0); Alkaline Phosphatase 635 U/L (40-150); Anion Gap 14 mmol/L (10-20); BUN (Urea Nitrogen) 17 mg/dL (8.9-20.6); Bilirubin, Total 0.6 mg/dL (0.2-1.2); Calc. Creatinine Clearance 0 mL/min (70-130); Calcium 8.9 mg/dL (7.8-10.44); Carbon Dioxide 25 mmol/L (22-29); Chloride 104 mmol/L (98-107); Estimated GFR-MDRD Greater than 90; Glucose 160 mg/dL (70-105); Potassium 3.8 mmol/L (3.5-5.1); Protein, Total 6.8 g/dL (6.0-8.3); Sodium 139 mmol/L (136-145)
--- NOTE | 2018-08-30 23:20 | RAD ---
CHEST TWO VIEWS: 08/30/18 INDICATION: History of weakness. COMPARISON: Prior exam dated 03/30/03. IMPRESSION: No acute cardiopulmonary abnormality. Left subclavian chest wall port. No acute osseous abnormality. POS: [facility]
[2018-08-30] MEDS ORDERED: Ondansetron PF 4 MG/2 ML Vial ONE (23:23)
[2018-08-30] MEDS ORDERED: Cefepime 1 GM VIAL ONE (23:23)
[2018-08-30] MEDS ORDERED: Morphine 4 MG/ML VIAL ONE (23:26)
[2018-08-31] MEDS ORDERED: Morphine 4 MG/ML VIAL ONE (00:20)
[2018-08-31] MEDS ORDERED: Acetaminophen 325 MG TAB PO PRN (00:54)
[2018-08-31] MEDS ORDERED: HYDROcodone/Acetaminophen 5/325 mg Tablet PO PRN (00:54)
[2018-08-31] MEDS ORDERED: Guaifenesin DM 100-10/5 ML UDCUP PO PRN (00:54)
[2018-08-31] MEDS ORDERED: Dextrose 5% in Water 1,000 ML IV PRN (00:54)
[2018-08-31] MEDS ORDERED: Ondansetron PF 4 MG/2 ML Vial IVP PRN (00:54)
[2018-08-31] MEDS ORDERED: Dextrose 50% Abboject 50 ML SYRINGE SLOW IVP PRN (00:54)
[2018-08-31] MEDS ORDERED: HumaLOG 300 UNITS/3 ML VIAL SC PRN (00:54)
[2018-08-31] MEDS ORDERED: HYDROcodone/Acetaminophen 7.5/325 mg Tablet PO PRN (00:54)
[2018-08-31] MEDS ORDERED: Loperamide HCl 2 MG CAP PO PRN (00:54)
[2018-08-31 01:00] LABS: Bilirubin Negative (Negative); Blood, Urine Negative (Negative); Clarity CLEAR (Clear); Glucose, Urine (Dipstick) >=1000 mg/dL (Negative); Leukocyte Negative (Negative); Nitrite Negative (Negative); Protein, Urine (Dipstick) 30 mg/dL (Neg-Trace); Specific Gravity, Urine 1.019 (1.002-1.036); Urobilinogen 0.2 mg/dL (0.2-1.0)
[2018-08-31 01:04] LABS: Bacteria/HPF None Seen HPF (None Seen); Hyaline Casts/LPF 7-10 HYALINE CAST LPF (0-3 Hyaline); Pathc Cast-AUWi Flag 1.16 (0-2.49); RBC/HPF None Seen HPF (0-3); Squamous Epithelial 0-3 HPF (0-3)
[2018-08-31] MEDS ORDERED: Cefepime 1 GM in Sodium Chloride 0.9% 100 ML IVPB SCH (01:15)
[2018-08-31] MEDS: Sodium Chloride 0.9% 1,000 ML IV SCH (01:59)
[2018-08-31 02:11] VITALS: BMI 29.9
[2018-08-31 02:22] LABS: #Eosinphils 0.1 thou/uL (0.0-0.7); #Lymphocytes 1.4 thou/uL (1.20-3.40); #Monocytes 0.6 thou/uL (0.11-0.59); %Basophils 0.7 % (0.0-1.0); %Eosinophils 1.6 % (0.0-10.0); %Lymphocytes 27.2 % (21.0-51.0); %Monocytes 12.1 % (0.0-10.0); %Neutrophils 58.4 % (42.0-75.0); Hemoglobin 11.4 g/dL (14.0-18.0); Mean Corpuscular HGB CONC 31.8 g/dL (32.0-36.0); Mean Corpuscular Hemoglobin 27.8 pg (27.0-31.0); Mean Corpuscular Volume 87.3 fL (78.0-98.0); Mean Platelet Volume 6.7 fL (7.4-10.4); Platelet Count 184 thou/uL (130-400); RBC Distribution Width 16.2 % (11.5-14.5); Red Blood Cell (RBC) Count 4.12 mill/uL (4.70-6.10); White Blood Cell (WBC) Count 5.2 thou/uL (4.8-10.8)
[2018-08-31 02:49] LABS: Lactic Acid 1.2 mmol/L (0.5-2.2)
[2018-08-31 03:16] LABS: Anion Gap 11 mmol/L (10-20); BUN (Urea Nitrogen) 14 mg/dL (8.9-20.6); Calc. Creatinine Clearance 155 mL/min (70-130); Calcium 8.3 mg/dL (7.8-10.44); Carbon Dioxide 25 mmol/L (22-29); Chloride 106 mmol/L (98-107); Estimated GFR-MDRD Greater than 90; Glucose 213 mg/dL (70-105); Potassium 4.7 mmol/L (3.5-5.1); Sodium 137 mmol/L (136-145)
--- NOTE | 2018-08-31 04:52 | HP ---
DATE OF ADMISSION: 08/30/2018 PRIMARY ONCOLOGIST: Kyle Trejo M.D. REASON FOR ADMISSION: Sepsis. HISTORY OF PRESENT ILLNESS: The patient gives a history of having cold sweats and feeling sick from evening. He initially thought his sugar was high. He almost felt like passing out. No fever as suc h. No cough or expectoration. No urinary frequency or urgency. No complaints of chest pain, palpit ation or PND. The patient has significant history of rectal cancer with mets to liver and is on chem otherapy. Last chemo session was last week. On arrival in ER, the patient had a temperature of 94 d egrees. He is currently on a Phil Hugger. PAST MEDICAL AND SURGICAL HISTORY: History of rectal cancer with mets to liver, on chemotherapy. Di abetes mellitus type 1, appendectomy, MediPort. CURRENT MEDICATIONS: NovoLog 70/30 25 units subcutaneously twice daily, gabapentin 300 mg p.o. twice daily, [place] 10/325 mg q.6 hourly p.r.n., Motrin p.r.n. for pain, Reglan p.r.n. ALLERGIES: AMOXICILLIN. Please note, the patient is not allergic to iodine or shellfish. PERSONAL HISTORY: Does not abuse alcohol or drugs. No history of smoking. FAMILY HISTORY: Mother of massive SC at the age of 56 years. He does not know much about his f ather. CODE STATUS: Full. Power of senior java engineer is his sister, Ms. Valladares. REVIEW OF SYSTEMS: The following complete review of systems was negative, unless otherwise mentioned in the HPI or below: Constitutional: Weight loss or gain, ability to conduct usual activities. Sk in: Rash, itching. Eyes: Double vision, pain. ENT/Mouth: Nose bleeding, neck stiffness, pain, te nderness. Cardiovascular: Palpitations, dyspnea on exertion, orthopnea. Respiratory: Shortness of breath, wheezing, cough, hemoptysis, fever or night sweats. Gastrointestinal: Poor appetite, abdom inal pain, heartburn, nausea, vomiting, constipation, or diarrhea. Genitourinary: Urgency, frequenc y, dysuria, nocturia. Musculoskeletal: Pain, swelling. Neurologic/Psychiatric: Anxiety, depressio n. Allergy/Immunologic: Skin rash, bleeding tendency. PHYSICAL EXAMINATION: GENERAL: The patient is a 28-year-old male, who is currently in mild distress due to chills and he i s on a Phil Hugger. VITAL SIGNS: Blood pressure 156/100, pulse 90 per minute, respiratory rate 22 per minute, temperatur e 94.5 degrees on arrival, saturating 100% on room air. NECK: Supple. No elevated JVD. HEENT: Eyes, extraocular muscles intact. Pupils reacting to light. Oral cavity, mucous membranes a re dry. No exudates or congestion. CARDIOVASCULAR: S1, S2 heard. Regular rhythm. RESPIRATORY: Air entry 1+ bilaterally. No rales or rhonchi. ABDOMEN: Soft. Bowel sounds heard. No tenderness, rigidity or guarding. EXTREMITIES: No peripheral edema or calf tenderness. VASCULAR SYSTEM: Peripheral pulses 1+ bilateral. No ischemic ulcerations or gangrene. CENTRAL NERVOUS SYSTEM: No gross focal deficits noted. The patient is alert, awake, oriented well. PSYCHIATRIC: The patient's mood is euthymic. No hallucinations or delusions. LABORATORY AND X-RAY FINDINGS: White count of 6, H and H of 13 and 41, platelet count 221,000 with 5 7% neutrophils, MCV is 86. Electrolytes are stable. BUN 17, creatinine 0.8, serum glucose 160, lact ic acid 2.7, AST 58, ALT 41, alkaline phosphatase 635, albumin is 3.8. Chest x-ray done shows no acu te cardiopulmonary abnormality. CLINICAL IMPRESSION AND PLAN: The patient will be admitted to Oncology floor for sepsis with being i mmunocompromised and the patient being on chemotherapy for rectal cancer. We will obtain valdez culture s including blood, urine and sputum cultures if he can provide one. It is unclear the exact source o f his infection at present. He will be on broad spectrum antibiotics including cefepime, vancomycin and Levaquin. We will hydrate him with normal saline. We will continue his [place] and gabapentin as before for pain. We will obtain consultation with Dr. Trejo, his oncologist. Further imaging incl uding CAT scans can be obtained in the morning based on clinical response from the patient.
[2018-08-31] MEDS: Vancomycin HCl 1.5 GM in Sodium Chloride 0.9% 250 ML 300 ML IVPB SCH ×3 (05:00→21:50)
[2018-08-31] MEDS: HumaLOG 300 UNITS/3 ML VIAL SC PRN (08:49)
[2018-08-31] MEDS: Gabapentin 300 MG CAP PO SCH ×2 (10:22→21:49)
[2018-08-31] MEDS: Famotidine 20 MG TAB PO SCH ×2 (10:22→21:49)
[2018-08-31] MEDS: Enoxaparin Sodium 40 MG/0.4 ML SYRINGE SC SCH (10:23)
--- NOTE | 2018-08-31 11:44 | CON ---
DATE OF CONSULTATION: 08/31/2018 REASON FOR CONSULTATION: Rectal cancer. HISTORY OF PRESENT ILLNESS: A 28-year-old male with history of metastatic rectal cancer to liver, cu rrently on FOLFOX plus Avastin presenting to the hospital with cold sweats and feeling faint. The pa lorraine states that he felt like his sugar was extremely elevated and he felt like passing out and desc ribes having cold sweats and a feeling of wanting to jump out of his skin. He says he had never had those symptoms before. The patient presented to the ER and had a temperature of 94 degrees orally. A couple of hours later, his temperature was 97.1. The patient denies any fevers, any cough, trouble breathing, blood in the urine, blood in the stool, nausea or vomiting. He has chronic stable diarrh ea. The patient last received chemotherapy a week and a half ago and states that he was feeling okay up until yesterday. Urinalysis and chest x-ray did not reveal any signs of infection. The patient was started on broad spectrum antibiotics on admission. Today, the patient states that he feels much better and is feeling almost back to his baseline. REVIEW OF SYSTEMS: Ten point review of systems negative except as per HPI. PAST MEDICAL HISTORY: Rectal cancer, type 1 diabetes. PAST SURGICAL HISTORY: Appendectomy, MediPort. MEDICATIONS: Reviewed. ALLERGIES: AMOXICILLIN. SOCIAL HISTORY: No tobacco or alcohol. FAMILY HISTORY: No family history of cancer. PHYSICAL EXAMINATION: VITAL SIGNS: Temperature 97.7, pulse 77, respirations 18, satting 100% on room air, blood pressure 1 48/94. GENERAL APPEARANCE: The patient is lying in bed in no acute distress, appears comfortable. HEENT: No scleral icterus. Moist mucous membranes. CARDIOVASCULAR: S1, S2, regular rate and rhythm. LUNGS: Clear to auscultation bilaterally without wheezes, rales or rhonchi. ABDOMEN: Soft, nondistended, nontender. EXTREMITIES: No edema. NEUROLOGIC: Cranial nerves II-XII grossly intact and otherwise nonfocal. PSYCHIATRIC: Awake, alert and oriented x3. LABORATORY DATA: White blood cells 5.2, hemoglobin 11.4, platelets 184, BUN 14, creatinine 0.81, glu cose 213. Lactic acid 2.7 on admission, currently 1.2, AST 58, alkaline phosphatase 635. Urinalysis ; no leukocyte esterase or bacteria seen. IMAGING DATA: Chest x-ray shows no acute cardiopulmonary abnormality. ASSESSMENT AND PLAN: A 28-year-old male with metastatic rectal cancer to liver, currently on FOLFOX plus Avastin presenting with cold sweats, feeling faint and a feeling of wanting to jump out of his s kin. The patient appears well and vital signs are currently stable. The patient initially presented with temperature of 94 orally, but within a couple hours his temperature was 97.1 and has been stabl e ever since. Chest x-ray did not show pneumonia and urinalysis did not show evidence of UTI. Flu t esting was negative as well. The patient's white blood cells are normal, without left shift and no n eutropenia. The patient does not appear to have an infection; however, has improved with fluids and antibiotics. Based on the patient's appearance and workup thus far, the patient can likely discontin ue antibiotics within the next 24 hours if he remains stable. He can be discharged home with follow up with Dr. Trejo for chemotherapy next week.
[2018-08-31] MEDS: HYDROcodone/Acetaminophen 10/325 mg Tablet PO PRN ×3 (12:50→21:51)
[2018-08-31] MEDS: Cefepime 1 GM in Sodium Chloride 0.9% 100 ML IVPB SCH ×2 (12:57→23:47)
[2018-09-01 05:28] LABS: Vancomycin, Trough 29.7 ug/mL
[2018-09-01] MEDS: Sodium Chloride 0.9% 1,000 ML IV SCH (05:40)
[2018-09-01] MEDS: Vancomycin HCl 1.5 GM in Sodium Chloride 0.9% 250 ML 300 ML IVPB SCH (05:42)
[2018-09-01 08:17] VITALS: BP 127/88
[2018-09-01] MEDS: Enoxaparin Sodium 40 MG/0.4 ML SYRINGE SC SCH (09:26)
[2018-09-01] MEDS: Famotidine 20 MG TAB PO SCH (09:26)
[2018-09-01] MEDS: Gabapentin 300 MG CAP PO SCH (09:26)
[2018-09-01 11:17] VITALS: TEMP 98.8
[2018-09-01] MEDS: HumaLOG 300 UNITS/3 ML VIAL SC PRN (12:01)
[2018-09-01] MEDS: Cefepime 1 GM in Sodium Chloride 0.9% 100 ML IVPB SCH (12:01)
[2018-09-01 13:40] LABS: Vancomycin, Random 16.2 ug/mL (See Comment)
--- NOTE | 2018-09-01 13:52 | DIS ---
DATE OF ADMISSION: 08/30/2018 DATE OF DISCHARGE: 09/01/2018 DISCHARGE DIAGNOSES: 1. Systemic inflammatory response syndrome. 2. Rectal carcinoma with liver metastasis on current chemotherapy. 3. Diabetes mellitus type 1, insulin requiring. 4. Lactic acidosis, resolved. CONSULTATIONS: Dr. Ray Alberto with Medical Oncology Service. PERTINENT LABORATORY AND X-RAY FINDINGS: Basic metabolic profile within normal limits. Lactic acid level ranged between 1.2-2.7, AST 58, ALT 41, alkaline phosphatase 635. CBC showed a white blood dasha l count ranging between 5.2 to 6.0, hemoglobin ranging between 11.4 to 13.4. Blood cultures x2 dated 08/30/2018 showed no growth to date. Influenza A and B antigen dated 08/31/2018 negative. Respirat ory culture dated 08/31/2018 showed normal respiratory chi. Urine culture dated 08/31/2018 showed no growth at 24 hours. Portable chest x-ray dated 08/30/2018 showed no acute cardiopulmonary process . MediPort noted in place. HOSPITAL COURSE: Patient was initially admitted to the medical floor after presenting with questiona ble sepsis with fever, chills, and elevated lactic acid level. The patient was placed on broad spect rum IV antibiotic therapy including vancomycin, cefepime, and Levaquin for empiric coverage. The pat ient was valdez cultured with all studies being negative as stated previously. The patient was given IV fluids and general supportive management as well as given consultation with Medical Oncology Service . No specific organism or infectious process was identified, and patient clinically stabilized with supportive management. The patient's antibiotics were discontinued and patient was ready for dischar on 09/01/2018. I have examined the patient at the time of discharge and discussed followup instru ctions. The patient was ready for discharge to home on 09/01/2018. DISCHARGE MEDICATIONS: 1. [place] 10/325 mg 1 tab p.o. q.6 hours p.r.n. 2. Motrin 800 mg p.o. t.i.d. p.r.n. 3. NovoLog FlexPen 25 units subcutaneously b.i.d. 4. Reglan 10 mg p.o. q.i.d. p.r.n. 5. Gabapentin 300 mg p.o. b.i.d. FOLLOWUP: Patient to follow up with his primary care provider at [facility] in [place], [place]. The p reshma will follow up with Dr. Kyle Trejo with Medical Oncology Service and to call his office for appointment time and date. CONDITION ON DISCHARGE: Stable. ACTIVITY: Ad jorden. DIET: ADA. CODE STATUS: FULL. DISPOSITION: Home, 09/01/2018.
[2018-09-01] MEDS ORDERED: Vancomycin HCl 1 GM in Premix Bag 1 BAG IVPB SCH ×2 (14:45→22:00)
== END 2018-09-01 14:44 | disposition home or self-care (01) | DRG 864 ==
LOC: ERS 21:51 → SURG B 23:20 → ONC 08-31 11:00
PROVIDERS: ADMIT Internal Medicine; ATTEND Internal Medicine
DX: R65.10 Systemic inflammatory response syndrome (SIRS) of non-infectious origin without acute organ dysfunction (principal); C20 Malignant neoplasm of rectum; C78.7 Secondary malignant neoplasm of liver and intrahepatic bile duct; E87.2 Acidosis; E86.0 Dehydration; Z88.1 Allergy status to other antibiotic agents; E10.9 Type 1 diabetes mellitus without complications; Z79.4 Long term (current) use of insulin; K52.9 Noninfective gastroenteritis and colitis, unspecified
CPT/HCPCS: 36415; 36416; 71046; 80048; 80053; 80202; 81003; 81015; 83605; 85025; 87040; 87070; 87086; 87205; 87804; 96365; 96367; 96375; 96376; J0692; J1650; J1956; J2270; J2405; J3370; J7050

== ENCOUNTER 2018-09-05 11:26 | Day surgery (SDC) | payer OTHER ==
[2018-09-05] MEDS ORDERED: Sodium Chloride 0.9% 40 ML ONE (11:31)
[2018-09-05] MEDS ORDERED: Dexamethasone 10 MG/ML VIAL SLOW IVP SCH (11:45)
[2018-09-05] MEDS ORDERED: WATER IVPB SCH (11:45)
[2018-09-05] MEDS ORDERED: DEXTROSE 5% IVPB SCH (11:45)
[2018-09-05] MEDS ORDERED: Ondansetron PF 4 MG/2 ML Vial SLOW IVP SCH (11:45)
[2018-09-05] MEDS ORDERED: FLUOROURACIL IVPB SCH (11:45)
[2018-09-05] MEDS ORDERED: Leucovorin Calcium 50 MG in Dextrose 5% in Water 50 ML IVPB SCH (11:45)
[2018-09-05] MEDS ORDERED: Bevacizumab 400 MG in Sodium Chloride 0.9% 84 ML IVPB SCH (12:00)
[2018-09-05 12:18] VITALS: BP 111/64; TEMP 98.3
== END 2018-09-05 16:42 | disposition home or self-care (01) ==
LOC: ONC/OP 11:26
PROVIDERS: ATTEND Internal Medicine Hematology & Oncology
DX: Z51.11 Encounter for antineoplastic chemotherapy (principal); C20 Malignant neoplasm of rectum; E11.9 Type 2 diabetes mellitus without complications; Z88.0 Allergy status to penicillin; Z79.899 Other long term (current) drug therapy
CPT/HCPCS: 36415; 80053; 82248; 82378; 83615; 84100; 84550; 96375; 96413; 96415; 96416; 96417; J0640; J1100; J2405; J7050; J7070; J9035; J9190; J9263

== ENCOUNTER 2018-09-19 08:52 | Day surgery (SDC) | payer OTHER ==
[2018-09-19] MEDS ORDERED: Sodium Chloride 0.9% 40 ML ONE (09:21)
[2018-09-19] MEDS ORDERED: Ondansetron HCl/PF 15 MG in Sodium Chloride 0.9% 50 ML IVPB SCH (09:30)
[2018-09-19] MEDS ORDERED: Dexamethasone 10 MG/ML VIAL SLOW IVP SCH (09:30)
[2018-09-19 09:54] VITALS: BP 114/72; TEMP 97.6
[2018-09-19] MEDS ORDERED: DEXTROSE 5% IVPB SCH (10:00)
[2018-09-19] MEDS ORDERED: Bevacizumab 400 MG in Sodium Chloride 0.9% 84 ML IVPB SCH (10:00)
[2018-09-19] MEDS ORDERED: Leucovorin Calcium 50 MG in Dextrose 5% in Water 50 ML IVPB SCH (10:00)
[2018-09-19] MEDS ORDERED: WATER IVPB SCH (10:00)
[2018-09-19] MEDS ORDERED: FLUOROURACIL IVPB SCH (10:00)
== END 2018-09-19 15:01 | disposition home or self-care (01) ==
LOC: ONC/OP 08:52
PROVIDERS: ATTEND Internal Medicine Hematology & Oncology
DX: Z51.11 Encounter for antineoplastic chemotherapy (principal); C20 Malignant neoplasm of rectum; Z88.0 Allergy status to penicillin; E11.9 Type 2 diabetes mellitus without complications; Z79.899 Other long term (current) drug therapy
CPT/HCPCS: 80053; 82248; 82378; 83615; 84100; 84550; 96375; 96413; 96415; 96416; 96417; J0640; J1100; J2405; J7050; J7070; J9035; J9190; J9263

== ENCOUNTER 2018-09-24 01:35 | Emergency (ER) | payer OTHER ==
[2018-09-24] MEDS ORDERED: Morphine 4 MG/ML VIAL ONE (01:55)
[2018-09-24] MEDS ORDERED: Ondansetron ODT 4 MG TAB ONE (01:55)
[2018-09-24] MEDS ORDERED: Ketorolac Tromethamine 30 MG/ML VIAL ONE (01:55)
== END 2018-09-24 02:30 | disposition home or self-care (01) ==
LOC: SCSER 01:35
DX: R10.9 Unspecified abdominal pain (principal); G89.29 Other chronic pain; E10.9 Type 1 diabetes mellitus without complications; C18.9 Malignant neoplasm of colon, unspecified; C78.7 Secondary malignant neoplasm of liver and intrahepatic bile duct; Z79.899 Other long term (current) drug therapy
CPT/HCPCS: 96372; J1885; J2270; Q0162

== ENCOUNTER 2018-09-25 03:18 | Emergency (ER) | payer OTHER ==
[2018-09-25] MEDS ORDERED: Morphine 4 MG/ML VIAL ONE (04:23)
[2018-09-25] MEDS ORDERED: Ketorolac Tromethamine 30 MG/ML VIAL ONE (04:23)
[2018-09-25] MEDS ORDERED: Loperamide HCl 2 MG CAP ONE (04:31)
== END 2018-09-25 05:05 | disposition home or self-care (01) ==
LOC: ERS 03:18
DX: K62.89 Other specified diseases of anus and rectum (principal); C18.9 Malignant neoplasm of colon, unspecified; C78.7 Secondary malignant neoplasm of liver and intrahepatic bile duct; E10.9 Type 1 diabetes mellitus without complications; Z79.899 Other long term (current) drug therapy
CPT/HCPCS: 96372; J1885; J2270

== ENCOUNTER 2018-10-03 09:22 | Day surgery (SDC) | payer OTHER ==
[2018-10-03 09:34] VITALS: BP 114/60; TEMP 98.3
[2018-10-03] MEDS ORDERED: Sodium Chloride 0.9% 40 ML ONE (09:37)
[2018-10-03] MEDS ORDERED: WATER IVPB SCH (09:45)
[2018-10-03] MEDS ORDERED: Dexamethasone 10 MG/ML VIAL SLOW IVP SCH (09:45)
[2018-10-03] MEDS ORDERED: Leucovorin Calcium 50 MG in Dextrose 5% in Water 50 ML IVPB SCH (09:45)
[2018-10-03] MEDS ORDERED: Bevacizumab 400 MG in Sodium Chloride 0.9% 84 ML IVPB SCH (09:45)
[2018-10-03] MEDS ORDERED: Ondansetron HCl/PF 15 MG in Sodium Chloride 0.9% 50 ML IVPB SCH (09:45)
[2018-10-03] MEDS ORDERED: FLUOROURACIL IVPB SCH (09:45)
[2018-10-03] MEDS ORDERED: DEXTROSE 5% IVPB SCH (09:45)
== END 2018-10-03 15:24 | disposition home or self-care (01) ==
LOC: ONC/OP 09:22
PROVIDERS: ATTEND Internal Medicine Hematology & Oncology
DX: Z51.11 Encounter for antineoplastic chemotherapy (principal); C20 Malignant neoplasm of rectum; E11.9 Type 2 diabetes mellitus without complications; Z79.4 Long term (current) use of insulin; Z88.1 Allergy status to other antibiotic agents
CPT/HCPCS: 36415; 80053; 82248; 82378; 83615; 84100; 84550; 96367; 96375; 96413; 96415; 96417; J0640; J1100; J2405; J7050; J7070; J9035; J9190; J9263

== ENCOUNTER 2018-10-09 06:57 | Inpatient (IN) | payer OTHER ==
[2018-10-09 07:32] LABS: Bilirubin Negative (Negative); Blood, Urine Negative (Negative); Clarity CLEAR (Clear); Glucose, Urine (Dipstick) >=1000 mg/dL (Negative); Leukocyte Negative (Negative); Nitrite Negative (Negative); Protein, Urine (Dipstick) 100 mg/dL (Neg-Trace); Specific Gravity, Urine 1.033 (1.002-1.036); pH, Urine 6.5 (5.0-9.0)
[2018-10-09 07:35] LABS: Bacteria/HPF None Seen HPF (None Seen); Hyaline Casts/LPF 0-3 HYALINE CAST LPF (0-3 Hyaline); Pathc Cast-AUWi Flag 0.29 (0-2.49); RBC/HPF None Seen HPF (0-3); Squamous Epithelial 0-3 HPF (0-3); WBC/HPF 0-3 HPF (0-3)
[2018-10-09 07:54] LABS: #Lymphocytes 1.3 thou/uL (1.20-3.40); #Monocytes 0.5 thou/uL (0.11-0.59); #Neutrophils 2.4 thou/uL (1.40-6.50); %Basophils 0.4 % (0.0-1.0); %Eosinophils 0.7 % (0.0-10.0); %Lymphocytes 31.7 % (21.0-51.0); %Monocytes 10.8 % (0.0-10.0); %Neutrophils 56.5 % (42.0-75.0); Hemoglobin 13.2 g/dL (14.0-18.0); Mean Corpuscular HGB CONC 32.4 g/dL (32.0-36.0); Mean Corpuscular Hemoglobin 28.4 pg (27.0-31.0); Mean Corpuscular Volume 87.8 fL (78.0-98.0); Mean Platelet Volume 7.5 fL (7.4-10.4); Platelet Count 228 thou/uL (130-400); RBC Distribution Width 16.4 % (11.5-14.5); Red Blood Cell (RBC) Count 4.65 mill/uL (4.70-6.10); White Blood Cell (WBC) Count 4.2 thou/uL (4.8-10.8)
[2018-10-09 08:16] LABS: ALT (SGPT) 57 U/L (8-55); AST (SGOT) 61 U/L (5-34); Albumin 3.8 g/dL (3.5-5.0); Alkaline Phosphatase 553 U/L (40-150); Anion Gap 14 mmol/L (10-20); BUN (Urea Nitrogen) 20 mg/dL (8.9-20.6); Bilirubin, Total 0.7 mg/dL (0.2-1.2); Calc. Creatinine Clearance 0 mL/min (70-130); Calcium 9.1 mg/dL (7.8-10.44); Carbon Dioxide 22 mmol/L (22-29); Chloride 103 mmol/L (98-107); Estimated GFR-MDRD Greater than 90; Globulin 3.5 g/dL (2.4-3.5); Glucose 196 mg/dL (70-105); Lipase 18 U/L (8-78); Potassium 4.9 mmol/L (3.5-5.1); Protein, Total 7.3 g/dL (6.0-8.3); Sodium 134 mmol/L (136-145)
[2018-10-09] MEDS ORDERED: Ondansetron PF 4 MG/2 ML Vial ONE (08:27)
[2018-10-09] MEDS ORDERED: Morphine 4 MG/ML VIAL ONE ×2 (08:27→10:55)
[2018-10-09] MEDS ORDERED: Iopamidol-370 76% 500 ML 1 ML ONE (09:00)
--- NOTE | 2018-10-09 09:24 | CT ---
CT OF THE ABDOMEN AND PELVIS WITH IV COTNRAST: INDICATION: History of abdominal pain. COMPARISON: Prior exam dated 06/23/2018. FINDINGS: The rectal mass appears to induce stable narrowing of the upper rectum, particularly on image 82 of s eries 2. There is irregular soft tissue density involving the anterior aspect of the mid to lower re ctum and continuity with posterior aspect of the prostate likely related to regional spread of metast atic disease. This is stable to the prior exam. There is circumferential wall thickening and dilata tion involving the rectosigmoid junction, sigmoid colon, and descending colon suspicious for a superi mposed mild colitis possibly infectious or related to therapy. The small bowel is of normal caliber. There are numerous hepatic metastatic lesions that have increased in size and number from the prior e xam. A conspicuous index lesion within segment 8 of the right hepatic lobe measures 4.6 cm where it previously measured 4.4 cm. The adrenal glands and kidneys appear within normal limits. The spleen measures 14.3 cm, slightly larger than on the prior exam. The pancreas is within normal limits. There are some shotty-appearing lymph nodes seen within the left lower quadrant mesentery, particular ly on image 50 of series 2. The largest measures up to 7 mm. This has increased in size from the pr ior exam where the mesenteric lymph node measured previously 5 mm. There is a mildly prominent paraa ortic lymph node seen on image 53 o series 2 measuring 7 mm. This measured 5 mm on the prior exam. No definite acute osseous abnormality is evident. IMPRESSION: 1. Findings of interval development of an upstream colitis from the patient's rectal mass. There is wall thickening and dilatation involving portions of the sigmoid colon and descending colon. No katelyn inable fluid collection is evident. 2. Three is stable narrowing at the level of the upper rectum from the rectal mass. A component of partial obstruction cannot be entirely excluded. 3. Worsening hepatic metastatic disease. Worsening splenomegaly. 4. Enlarging mesenteric lymphadenopathy of the left lower quadrant with an enlarged paraaortic lymph node suspicious for worsening malignant lymphadenopathy. POS: TPC
[2018-10-09] MEDS ORDERED: Levofloxacin 500 mg/D5W 100 ml Premix Bag ONE (09:39)
[2018-10-09] MEDS ORDERED: metroNIDAZOLE 500 MG in Premix Bag 1 BAG IVPB SCH (09:45)
[2018-10-09] MEDS ORDERED: Morphine 2 MG/ML SYRINGE SLOW IVP PRN (15:22)
[2018-10-09] MEDS ORDERED: Acetaminophen 325 MG TAB PO PRN (15:22)
[2018-10-09] MEDS ORDERED: HumaLOG 300 UNITS/3 ML VIAL SC PRN ×2 (15:22)
[2018-10-09] MEDS ORDERED: Dextrose 5% in Water 1,000 ML IV PRN (15:22)
[2018-10-09] MEDS ORDERED: Ondansetron PF 4 MG/2 ML Vial IVP PRN (15:22)
[2018-10-09] MEDS ORDERED: Dextrose 50% Abboject 50 ML SYRINGE SLOW IVP PRN (15:22)
[2018-10-09] MEDS ORDERED: Guaifenesin DM 100-10/5 ML UDCUP PO PRN (15:22)
[2018-10-09 16:27] VITALS: BMI 31.6
--- NOTE | 2018-10-09 17:07 | HP ---
REASON FOR ADMISSION: Acute colitis, possible bowel obstruction, immunosuppressed on chemotherapy for rectal cancer. HISTORY OF PRESENTING ILLNESS: The patient gives history of unable to move his bowels from last 2 days. He was sitting on his toilet seat and could not get up due to severe cramping and unable to pass stool. The abdominal pain is around the sides of the umbilicus. They were very frequently coming on with intensity of 10/10. No radiation of this pain to the back. No complaints of nausea or vomiting. The patient states he received his chemo last week and has 2 weeks break before he gets the next session. He is due for a PET scan tomorrow to see the progress of his chemotherapy sessions. 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 No history of fever. No cough or expectoration. No trouble with passing urine. The patient says he can feel the pain in his perineum when he gets this colic. 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 Also has KRAS mutation. He is on chemotherapy for the same and received his last session a week back. The patient is due for a PET scan tomorrow. Appendectomy, diabetes mellitus type 1, Mediport placement. CURRENT MEDICATIONS: The patient is on, 1. Gabapentin 300 mg twice daily p.r.n. 2. NovoLog 70/30, 25 units subcu twice daily. 3. Bronson 10/325 mg q.6 hourly p.r.n. ALLERGIES: TO AMOXICILLIN. PERSONAL HISTORY: Does not abuse alcohol or drugs. No history of smoking. He lives alone, but his sister helps out on chemotherapy days. FAMILY HISTORY: His grandpa had colon cancer and at the age of 75 years. Mother of heart disease. She had CHF and [place]. She at the age of 56 years. He does not know much about his father. Code status is full. Power of real estate attorney is his sister. REVIEW OF SYSTEMS: CONSTITUTIONAL: Negative for weight loss or gain, ability to conduct usual activities. SKIN: Negative for rash, itching. EYES: Negative for double vision, pain. ENT/MOUTH: Negative for nose bleeding, neck stiffness, pain, tenderness. CARDIOVASCULAR: Negative for palpitations, dyspnea on exertion, orthopnea. RESPIRATORY: Negative for shortness of breath, wheezing, cough, hemoptysis, fever or night sweats. GASTROINTESTINAL: Negative for poor appetite, abdominal pain, heartburn, nausea , vomiting, constipation, or diarrhea. GENITOURINARY: Negative for urgency, frequency, dysuria, nocturia. MUSCULOSKELETAL: Negative for pain, swelling. NEUROLOGIC/PSYCHIATRIC: Negative for anxiety, depression. ALLERGY/IMMUNOLOGIC: Negative for skin rash, bleeding tendency. PHYSICAL EXAMINATION: GENERAL: The patient is a 28-year-old male who is currently in mild distress from abdominal colic. VITAL SIGNS: Blood pressure 100/74, pulse 110 per minute, respiratory rate 20 per minute, temperature 97.8 degrees Fahrenheit, and saturating 100% on room air. NECK: Supple. No elevated JVD. HEENT: Eyes; extraocular muscles intact. Pupils reacting to light. Oral cavity; mucous membranes are dry. No exudates or congestion. CARDIOVASCULAR: S1 and S2 heard. Regular rhythm. RESPIRATORY: Air entry 1+ bilateral. No rales or rhonchi. ABDOMEN: Soft, has tenderness in the mid abdomen. No rigidity or guarding. EXTREMITIES: No peripheral edema or calf tenderness. VASCULAR: Peripheral pulses 1+ bilateral. No ischemic ulcerations or gangrene. CENTRAL NERVOUS SYSTEM: No gross focal deficits noted. The patient is alert, awake, and oriented well. PSYCHIATRIC: The patient's mood is euthymic. No hallucinations or delusions. LABORATORY DATA: White count of 4.2, H and H 13 and 40, platelet count 228 with 56% neutrophils, and MCV is 87. Sodium 134, serum bicarb 22, BUN 20, creatinine 0.8 , and glucose 196. AST 61, ALT 57, and alkaline phosphatase 553. Albumin is 3.8. CT of the abdomen and pelvis with IV contrast done showed upstream colitis from the patient's rectal mass. There is wall thickening and dilatation involving portions of the sigmoid colon and descending colon. No drainable fluid collection is evident. There is stable narrowing at the level of the upper rectum from the rectal mass. A component of partial obstruction cannot be entirely excluded, worsening hepatic metastatic disease, and worsening splenomegaly. There is enlarging mesenteric lymphadenopathy of the left lower quadrant with an enlarged para- aortic lymph node suspicious for worsening malignant lymphadenopathy. CLINICAL IMPRESSION AND PLAN: The patient will be admitted to Oncology floor for possible colitis with history of rectal cancer, immunosuppression, and abdominal pain/colic at present. We will place him on meropenem. Stool studies will be obtained including C. diff. We will gently hydrate him with normal saline at 80 mL/hr. He will be on clear liquid diet. We will obtain blood cultures as well. 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 Trejo for Oncology. The patient will be on Humalog coverage for now until he is on clear liquids. The patient is constipated from last 2 days and has a very large rectal mass and we will await GI evaluation for help with the same. Likely, he might need sigmoidoscopy , rectal evaluation to see if the mass is narrowed his lumen and if he requires colostomy per GI advice. Job ID: [id number] MTDD
[2018-10-09] MEDS: MEROPENEM 1 GM/50 ML 1 GM in Premix Bag 1 BAG IVPB SCH (17:46)
[2018-10-09] MEDS: Sodium Chloride 0.9% 1,000 ML IV SCH (17:46)
--- NOTE | 2018-10-09 19:56 | CON ---
DATE OF CONSULTATION: 10/09/2018 HISTORY OF PRESENT ILLNESS: The patient is a 28-year-old gentleman, who was diagnosed with metastatic rectal cancer back in 2017. He reports increasing lower abdominal pain, unable to pass stool. He has had no nausea or vomiting. His weight has been stable. PAST MEDICAL HISTORY: Includes; 1. Adenocarcinoma of the rectum with metastases to liver and lymph nodes, he is presently on chemotherapy. 2. Diabetes mellitus. PAST SURGICAL HISTORY: Includes an appendectomy and MediPort placement. MEDICATIONS: Include; 1. Gabapentin. 2. NovoLog. 3. [place]. ALLERGIES: AMOXICILLIN. SOCIAL HISTORY: Does not smoke or drink. FAMILY HISTORY: Significant for grandparent with colon cancer. REVIEW OF SYSTEMS: CONSTITUTIONAL: Negative for fever or chills. Negative weight loss. EYES: No blurred vision or double vision. ENT: No sore throat or earaches. CARDIOVASCULAR: No chest pain or palpitation. PULMONARY: No shortness of breath, cough, or wheeze. GI: See above. : No hematuria or dysuria. MUSCULOSKELETAL: No joint pain or muscle weakness. SKIN: No rashes. NEUROLOGIC: No numbness or seizure activity. PHYSICAL EXAMINATION: GENERAL: Shows an overweight male in no acute distress. VITAL SIGNS: Temperature 98.2, pulse 103, respiratory rate 20, and blood pressure 193/60. HEENT: Unremarkable. NECK: Supple. CHEST: Clear. CARDIOVASCULAR: Regular rate and rhythm. ABDOMEN: Soft, tender diffusely, particularly in the lower quadrants. RECTAL: Deferred. EXTREMITIES: Normal. NEUROLOGIC: Nonfocal. LABORATORY DATA: Shows a white blood cell count 4.2, hemoglobin 13.2, and hematocrit 40.8. Chemistry shows AST of 61, ALT of 57, alkaline phosphatase of 553, and glucose 196. CT abdomen and pelvis shows findings of; 1. Interval development of upstream colitis from the patient's rectal mass with wall thickening and dilatation involving portions of the sigmoid colon and descending colon, stable narrowing of the level of the upper rectum from the rectal mass, worsening hepatic and metastatic disease and worsening splenomegaly. 2. Enlarging mesenteric lymphadenopathy in the left lower quadrant with a large periaortic lymph node, suspicious for worsening malignant lymphadenopathy. ASSESSMENT: A 28-year-old male with known metastatic rectal cancer with worsening lower abdominal pain and pain with bowel movements. This may be a component of obstruction. RECOMMENDATIONS: Surgical opinion about possible palliative diverting colostomy. Job ID: [id number]
[2018-10-09] MEDS ORDERED: Morphine 2 MG/ML SYRINGE SLOW IVP SCH (21:15)
--- NOTE | 2018-10-10 00:31 | CON ---
DATE OF CONSULTATION: REASON FOR CONSULTATION: Metastatic rectal cancer. HISTORY OF PRESENT ILLNESS: A 28-year-old male with a history of metastatic rectal cancer with metastasis to liver, currently on FOLFOX plus Avastin with last treatment on Wednesday, October 03, 2018, presenting with acute onset of abdominal pain that started last night. The patient said he felt okay yesterday morning and then began experiencing severe abdominal pain. He also felt like he had a bowel movement, but could not pass any stool and felt like he was full of gas. He came to the ER and began having bowel movements consisting of mixed watery and formed stools. He denies any blood in the stool. He denies any nausea, vomiting, fevers, shortness of breath or cough at this time. He received morphine in the ER that did help with his pain; however, currently, he states this pain is severe. The patient had no fevers since admission to the hospital. The patient had a CT of the abdomen and pelvis with IV contrast in the ER that showed interval development of an upstream colitis from the known rectal mass and also showed a stable narrowing at the lip of the upper rectum from the mass with component of partial obstruction that could not entirely be excluded. Scan showed stable to worsening hepatic metastatic disease and mesenteric lymphadenopathy in the left lower quadrant. REVIEW OF SYSTEMS: A 10-point review of systems negative except as per HPI. PAST MEDICAL HISTORY: Metastatic rectal adenocarcinoma and type 2 diabetes. PAST SURGICAL HISTORY: Appendectomy at 7 years of age. FAMILY HISTORY: Mother had an abnormal polyp. Grandfather with colon cancer, hypertension and diabetes in his family. SOCIAL HISTORY: Nonsmoker, no alcohol use. No illicit drug use. ALLERGIES: AMOXICILLIN. CURRENT MEDICATIONS: Reviewed. PHYSICAL EXAMINATION: VITAL SIGNS: Temperature 98.2, pulse 103, respirations 20, saturating 99% on room air. Blood pressure 93/60. GENERAL APPEARANCE: The patient lying in bed in the position, appears extremely uncomfortable. HEENT: Normocephalic, atraumatic. No scleral icterus noted. CARDIOVASCULAR: S1 and S2 with regular rhythm and rate. RESPIRATIONS: Unlabored and clear to auscultation bilaterally. ABDOMEN: Soft, nondistended with tenderness to palpation diffusely. EXTREMITIES: Showed no edema and the patient moves all extremities. NEUROLOGIC: Cranial nerves II through XII are grossly intact. PSYCHIATRIC: Awake, alert, and oriented x 3. LABORATORY DATA: White blood cell 4.2, hemoglobin 13.2, platelets 228, sodium 134, potassium 4.9, BUN 20, creatinine 0.85, glucose 196, calcium 9.1, AST 61, ALT 57, alkaline phosphatase 553 and lipase 18. IMAGING DATA: CT of the abdomen and pelvis with contrast shows interval development of an upstream colitis from the patient's rectal mass. There is wall thickening and dilatation involving portions of the sigmoid colon and the descending colon. There is stable narrowing at the lip of the upper rectum from the rectal mass. Of note, a partial obstruction cannot be entirely excluded, worsening hepatic metastatic disease and worsening splenomegaly, enlarging mesenteric lymphadenopathy of the left lower quadrant with an enlarged periaortic lymph nodes suspicious for worsening malignant lymphadenopathy. ASSESSMENT AND PLAN: A 28-year-old male with metastatic rectal adenocarcinoma of the liver presenting with worsening abdominal pain. The patient last received chemotherapy 6 days ago and is now presenting with acute onset abdominal pain that started overnight. CAT scan shows colitis, but no evidence of perforation, which is of concern as Avastin can cause perforation. The patient's pain is currently uncontrolled and we should optimize his pain control. Dr. Recinos has been consulted for evaluation and the patient may also benefit from surgical consult at this time. The patient has also been started on antibiotics for this colitis. The patient is not due again for chemotherapy until next Thursday, October 18, 2018. We will follow up Dr. Recinos's recommendations and agree with antibiotics for treatment of colitis. If the patient does not improve with symptomatic treatment, he may benefit from surgical consultation. We will continue to follow along with you. Thank you for this consult. Job ID: [id number]
[2018-10-10] MEDS: MEROPENEM 1 GM/50 ML 1 GM in Premix Bag 1 BAG IVPB SCH ×4 (00:54→23:52)
[2018-10-10] MEDS: Morphine 2 MG/ML SYRINGE SLOW IVP PRN ×3 (00:55→22:14)
[2018-10-10] MEDS ORDERED: Fleet Enema 133 ML BOT PR SCH (06:00)
[2018-10-10] MEDS: Sodium Chloride 0.9% 1,000 ML IV SCH ×2 (06:28→19:27)
[2018-10-10 09:03] LABS: #Lymphocytes 1.4 thou/uL (1.20-3.40); #Monocytes 0.6 thou/uL (0.11-0.59); #Neutrophils 2.1 thou/uL (1.40-6.50); %Basophils 0.9 % (0.0-1.0); %Eosinophils 0.8 % (0.0-10.0); %Lymphocytes 34.3 % (21.0-51.0); %Monocytes 14.5 % (0.0-10.0); %Neutrophils 49.5 % (42.0-75.0); Hemoglobin 11.3 g/dL (14.0-18.0); Mean Corpuscular Hemoglobin 27.2 pg (27.0-31.0); Mean Corpuscular Volume 87.6 fL (78.0-98.0); Mean Platelet Volume 7.9 fL (7.4-10.4); Platelet Count 180 thou/uL (130-400); RBC Distribution Width 16.5 % (11.5-14.5); Red Blood Cell (RBC) Count 4.16 mill/uL (4.70-6.10); White Blood Cell (WBC) Count 4.1 thou/uL (4.8-10.8)
[2018-10-10 09:25] LABS: Anion Gap 11 mmol/L (10-20); BUN (Urea Nitrogen) 12 mg/dL (8.9-20.6); Calc. Creatinine Clearance 191 mL/min (70-130); Calcium 8.4 mg/dL (7.8-10.44); Carbon Dioxide 23 mmol/L (22-29); Chloride 105 mmol/L (98-107); Estimated GFR-MDRD Greater than 90; Glucose 103 mg/dL (70-105); Potassium 4.3 mmol/L (3.5-5.1); Sodium 135 mmol/L (136-145)
--- NOTE | 2018-10-10 10:55 | PDOC.PN ---
- Subjective Encounter Start Date: 10/10/18 Encounter Start Time: 10:40 Subjective: has abd pain, no nausea -: no flatus - Objective Resuscitation Status - Order Detail: 10/09/18 15:18 Resuscitation Status Routine Resuscitation Status: FULL: Full Resuscitation Discussed with: POA: sister HANG Reviewed: Yes Vital Signs & Weight: Vital Signs (12 hours) Temp Pulse Resp BP Pulse Ox 10/10/18 08:00 97.7 F 86 16 127/79 100 10/10/18 04:00 98.5 F 90 18 99/67 99 10/10/18 00:00 97.7 F 96 18 116/74 98 Weight Weight 196 lb 3.2 oz I&O: 10/09/18 10/10/18 10/11/18 06:59 06:59 06:59 Intake Total 1460 Balance 1460 Result Diagrams: 10/10/18 07:37 10/10/18 07:37 Additional Labs: Accuchecks 10/10/18 10/09/18 10/09/18 04:27 20:53 15:57 POC Glucose 97 170 H 126 H Phys Exam - Physical Examination HEENT: PERRLA, moist MMs Neck: no JVD, supple Respiratory: no wheezing, no rales Cardiovascular: RRR, no significant murmur Gastrointestinal: soft, positive bowel sounds no rigidity or guarding Musculoskeletal: pulses present Neurological: non-focal, moves all 4 limbs Psychiatric: normal affect, A&O x 3 Dx/Plan (1) Abdominal pain Code(s): R10.9 - UNSPECIFIED ABDOMINAL PAIN Status: Acute Qualifiers: Abdominal location: lower abdomen, unspecified Qualified Code(s): R10.30 - Lower abdominal pain, unspecified (2) Colitis Code(s): K52.9 - NONINFECTIVE GASTROENTERITIS AND COLITIS, UNSPECIFIED Status : Suspected (3) Immunosuppressed due to chemotherapy Code(s): Z79.899 - OTHER STAFF EDUCATOR (CURRENT) DRUG THERAPY Status: Chronic (4) Bowel obstruction Code(s): K56.609 - UNSP INTESTNL OBST, UNSP TO PARTIAL VERSUS COMPLETE OBST Status: Suspected Qualifiers: Intestinal obstruction extent: partial (5) Adenocarcinoma of rectum metastatic to liver Code(s): C20 - MALIGNANT NEOPLASM OF RECTUM; C78.7 - SECONDARY MALIG NEOPLASM OF LIVER AND INTRAHEPATIC BILE DUCT Status: Chronic (6) Constipation Code(s): K59.00 - CONSTIPATION, UNSPECIFIED Status: Chronic (7) DM type 1 (diabetes mellitus, type 1) Status: Acute Qualifiers: Diabetes mellitus complication status: with unspecified complications Qualified Code(s): E10.8 - Type 1 diabetes mellitus with unspecified complications - Plan for sigmoidoscopy today by , d/w -: surgical consultation based on findings -: is on meropenem, morphine prn -: gentle hydration -: stool studies -ve so far for infection * . Review of Systems - Medications/Allergies Allergies/Adverse Reactions: Allergies Allergy/AdvReac Type Severity Reaction Status Date / Time amoxicillin Allergy Rash Verified 02/12/17 00:54 Medications: Current Medications Acetaminophen (Tylenol) 650 mg PO Q4H PRN PRN Reason: Headache/Fever/Mild Pain (1-3) Dextrose/Water (Dextrose 50%) 25 gm SLOW IVP PRN PRN PRN Reason: Hypoglycemia Enoxaparin Sodium (Lovenox) 40 mg SC 0900 [facility] Glucagon (Glucagon) 1 mg IM PRN PRN PRN Reason: Hypoglycemia Guaifenesin/Dextromethorphan (Robitussin Dm) 15 ml PO Q4H PRN PRN Reason: Cough Dextrose/Water (D5w) 1,000 mls @ 0 mls/hr IV .Q0M PRN PRN Reason: Hypoglycemia Meropenem 1 gm/ Device 50 mls @ 100 mls/hr IVPB 0800,1600,2359 [facility] Last Admin: 10/10/18 09:10 Dose: 50 mls Sodium Chloride (Normal Saline 0.9%) 1,000 mls @ 80 mls/hr IV .[id number] [facility] Last Admin: 10/10/18 06:28 Dose: 1,000 mls Insulin Human Lispro (Humalog) 0 units SC .MODERATE SLIDING SC PRN PRN Reason: Moderate Correctional Scale Insulin Human Lispro (Humalog) 0 units SC .BEDTIME SLIDING SC PRN PRN Reason: Bedtime Correctional Scale Morphine Sulfate (Morphine) 2 mg SLOW IVP Q3H PRN PRN Reason: Moderate to Severe Pain (4-10) Last Admin: 10/10/18 00:55 Dose: 2 mg Ondansetron HCl (Zofran) 4 mg IVP Q6H PRN PRN Reason: Nausea/Vomiting Sodium Biphosphate/Sodium Phosphate (Fleet Enema) 133 ml VA ONE AN Stop: 10/10/18 23:59
[2018-10-10] MEDS: Enoxaparin Sodium 40 MG/0.4 ML SYRINGE SC SCH (14:02)
[2018-10-10] MEDS ORDERED: Dextrose 5 % And 0.9 % NaCl 1,000 ML IV SCH (18:15)
[2018-10-10] MEDS ORDERED: Promethazine HCl 25 MG/ML VIAL SLOW IVP PRN (19:42)
[2018-10-10] MEDS ORDERED: Ondansetron HCl/PF 4 MG/2 ML Vial IVP PRN (19:42)
[2018-10-10] MEDS ORDERED: Promethazine HCl 25 MG/ML VIAL IM PRN (19:42)
[2018-10-10] MEDS ORDERED: PROPOFOL 200 MG/20 ML VIAL ONE (21:22)
[2018-10-10] MEDS ORDERED: Lidocaine 1% PF 5 ML VIAL ONE (21:22)
--- NOTE | 2018-10-11 02:59 | OP ---
DATE OF PROCEDURE: 10/10/2018 PROCEDURE PERFORMED: Flexible sigmoidoscopy. PREOPERATIVE DIAGNOSES: Rectal cancer and distal colon colitis by CT scan. Of note, Mr. Barrera passed multiple stools today spontaneously and after that, his abdominal pain resolved. DESCRIPTION OF PROCEDURE: Informed consent was obtained. The patient was sedated with total intravenous anesthesia. The rectal exam revealed a mass in the distal rectum. The colonoscope was advanced to the rectum where a circumferential mass was encountered starting 1 cm above the anal verge. The colonoscope could be advanced towards the proximal end of the mass; however, this was strictured to the point the colonoscope could not be passed through the mass to view the mucosa proximal to that. 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 Given resolution of his pain, he unlikely has severe colitis proximal to this. Since he did have the colon thickening by CT and has improved clinically on antibiotics, I would complete a course of antibiotics for 5 to 7 days. RECOMMENDATIONS: 1. Since his abdominal pain is now resolved and he has been passing stools, we can try to advance to a full-liquid diet and monitor clinically. 2. If he continues to develop recurrent partial obstructions related to the rectal stricturing mass, then diverting colostomy should be considered. Job ID: [id number]
[2018-10-11] MEDS: Morphine 2 MG/ML SYRINGE SLOW IVP PRN (03:10)
[2018-10-11] MEDS: MEROPENEM 1 GM/50 ML 1 GM in Premix Bag 1 BAG IVPB SCH (08:10)
[2018-10-11] MEDS: Enoxaparin Sodium 40 MG/0.4 ML SYRINGE SC SCH (08:11)
[2018-10-11 12:02] VITALS: BP 122/84; TEMP 98.3
== END 2018-10-11 13:40 | disposition home or self-care (01) | DRG 394 ==
LOC: ERS 06:57 → OBSVTOIN 10:54 → ERHOLD 10:54 → T4-A 15:02
PROVIDERS: ADMIT Internal Medicine; ATTEND Internal Medicine
PROC: 0DJD8ZZ Inspection of Lower Intestinal Tract, Via Natural or Artificial Opening Endoscopic (ICD-10-PCS; principal; 2018-10-10)
DX: K62.4 Stenosis of anus and rectum (principal); C19 Malignant neoplasm of rectosigmoid junction; C78.7 Secondary malignant neoplasm of liver and intrahepatic bile duct; C77.9 Secondary and unspecified malignant neoplasm of lymph node, unspecified; K59.00 Constipation, unspecified; Z88.1 Allergy status to other antibiotic agents; Z79.4 Long term (current) use of insulin; Z92.21 Personal history of antineoplastic chemotherapy; T45.1X5A Adverse effect of antineoplastic and immunosuppressive drugs, initial encounter; E10.8 Type 1 diabetes mellitus with unspecified complications
CPT/HCPCS: 36415; 36416; 74177; 80048; 80053; 81003; 81015; 83605; 83690; 85025; 87040; 87045; 87046; 87324; 87449; 87899; 96361; 96365; 96367; 96375; 96376; J1650; J1956; J2001; J2185; J2270; J2405; J2704; Q9967

== ENCOUNTER 2018-10-18 12:26 | Day surgery (SDC) | payer OTHER ==
[2018-10-18] MEDS ORDERED: Sodium Chloride 0.9% 20 ML ONE (12:35)
[2018-10-18] MEDS ORDERED: WATER IVPB SCH (12:45)
[2018-10-18] MEDS ORDERED: ONDANSETRON IVP SCH (12:45)
[2018-10-18] MEDS ORDERED: DEXAMETHASONE IVP SCH (12:45)
[2018-10-18] MEDS ORDERED: FLUOROURACIL IVPB SCH (12:45)
[2018-10-18] MEDS ORDERED: Leucovorin Calcium 50 MG in Dextrose 5% in Water 50 ML IVPB SCH (12:45)
[2018-10-18] MEDS ORDERED: SODIUM CHLORIDE 0.9% IVP SCH (12:45)
[2018-10-18] MEDS ORDERED: DEXTROSE 5% IVPB SCH (12:45)
[2018-10-18] MEDS ORDERED: Bevacizumab 400 MG in Sodium Chloride 0.9% 84 ML IVPB SCH (13:00)
[2018-10-18 16:31] VITALS: BP 130/83; TEMP 97.8
== END 2018-10-18 17:28 | disposition home or self-care (01) ==
LOC: ONC/OP 12:26
PROVIDERS: ATTEND Internal Medicine Hematology & Oncology
DX: Z51.11 Encounter for antineoplastic chemotherapy (principal); C20 Malignant neoplasm of rectum; C78.7 Secondary malignant neoplasm of liver and intrahepatic bile duct; E11.9 Type 2 diabetes mellitus without complications; Z79.4 Long term (current) use of insulin; Z88.0 Allergy status to penicillin
CPT/HCPCS: 36415; 80053; 82248; 82378; 83615; 84100; 84550; 96367; 96375; 96413; 96415; 96416; 96417; J0640; J1100; J2405; J7050; J7070; J9035; J9190; J9263

== ENCOUNTER 2018-10-21 19:34 | Emergency (ER) | payer OTHER ==
[2018-10-21] MEDS ORDERED: Fentanyl 100 MCG/2 ML VIAL ONE ×2 (20:10→22:00)
[2018-10-21 21:14] LABS: #Lymphocytes 0.9 thou/uL (1.20-3.40); #Monocytes 0.2 thou/uL (0.11-0.59); #Neutrophils 1.9 thou/uL (1.40-6.50); %Basophils 0.6 % (0.0-1.0); %Eosinophils 0.6 % (0.0-10.0); %Lymphocytes 30.3 % (21.0-51.0); %Monocytes 5.3 % (0.0-10.0); %Neutrophils 63.2 % (42.0-75.0); Hemoglobin 11.2 g/dL (14.0-18.0); Mean Corpuscular HGB CONC 32.9 g/dL (32.0-36.0); Mean Corpuscular Volume 88.2 fL (78.0-98.0); Mean Platelet Volume 8.1 fL (7.4-10.4); Platelet Count 169 thou/uL (130-400); RBC Distribution Width 16.6 % (11.5-14.5); Red Blood Cell (RBC) Count 3.87 mill/uL (4.70-6.10)
[2018-10-21 21:32] LABS: ALT (SGPT) 55 U/L (8-55); AST (SGOT) 102 U/L (5-34); Albumin 3.2 g/dL (3.5-5.0); Alkaline Phosphatase 522 U/L (40-150); Anion Gap 11 mmol/L (10-20); BUN (Urea Nitrogen) 14 mg/dL (8.9-20.6); Bilirubin, Total 0.9 mg/dL (0.2-1.2); Calc. Creatinine Clearance 0 mL/min (70-130); Calcium 8.1 mg/dL (7.8-10.44); Carbon Dioxide 24 mmol/L (22-29); Chloride 104 mmol/L (98-107); Estimated GFR-MDRD Greater than 90; Globulin 2.7 g/dL (2.4-3.5); Glucose 272 mg/dL (70-105); Lipase 21 U/L (8-78); Protein, Total 5.9 g/dL (6.0-8.3); Sodium 135 mmol/L (136-145)
== END 2018-10-21 22:29 | disposition home or self-care (01) ==
LOC: ERS 19:34
DX: G89.29 Other chronic pain (principal); R10.9 Unspecified abdominal pain; C18.9 Malignant neoplasm of colon, unspecified; C78.7 Secondary malignant neoplasm of liver and intrahepatic bile duct; E10.9 Type 1 diabetes mellitus without complications; Z79.899 Other long term (current) drug therapy
CPT/HCPCS: 36415; 80053; 83605; 83690; 85025; 96374; 96376; J3010

== ENCOUNTER 2018-10-31 08:48 | Day surgery (SDC) | payer OTHER ==
[2018-10-31] MEDS ORDERED: Sodium Chloride 0.9% 40 ML ONE (09:29)
[2018-10-31] MEDS ORDERED: Dexamethasone Sod Phosphate 10 MG, Ondansetron 2MG/ML MDV 15 MG in Sodium Chloride 0.9%... IVPB SCH (11:00)
[2018-10-31] MEDS ORDERED: Bevacizumab 400 MG in Sodium Chloride 0.9% 84 ML IVPB SCH (11:00)
[2018-10-31] MEDS ORDERED: Leucovorin Calcium 50 MG in Dextrose 5% in Water 50 ML IVPB SCH (11:00)
[2018-10-31] MEDS ORDERED: FLUOROURACIL IVPB SCH (11:15)
[2018-10-31] MEDS ORDERED: DEXTROSE 5% IVPB SCH (11:15)
[2018-10-31] MEDS ORDERED: WATER IVPB SCH (11:15)
[2018-10-31 11:24] VITALS: BP 104/66; TEMP 97.7
== END 2018-10-31 16:25 | disposition home or self-care (01) ==
LOC: ONC/OP 08:48
PROVIDERS: ATTEND Internal Medicine Hematology & Oncology
DX: Z51.11 Encounter for antineoplastic chemotherapy (principal); C20 Malignant neoplasm of rectum; E11.9 Type 2 diabetes mellitus without complications; Z88.0 Allergy status to penicillin; Z79.899 Other long term (current) drug therapy
CPT/HCPCS: 36416; 80053; 82248; 82378; 83615; 84100; 84550; 96367; 96375; 96413; 96415; 96416; 96417; 99213; G0463; J0640; J1885; J2060; J2405; J3010; J7050; J7070; J9035; J9190; J9263

== ENCOUNTER 2018-10-31 09:50 | Emergency (ER) | payer OTHER ==
[2018-10-31] MEDS ORDERED: Ketorolac Tromethamine 30 MG/ML VIAL ONE (10:01)
[2018-10-31] MEDS ORDERED: Fentanyl 100 MCG/2 ML VIAL ONE (10:01)
[2018-10-31] MEDS ORDERED: Lorazepam 2 MG/ML VIAL ONE (10:01)
[2018-10-31] MEDS ORDERED: Dextrose 50% Abboject 50 ML SYRINGE ONE (11:06)
== END 2018-10-31 11:18 | disposition home or self-care (01) ==
LOC: ERS 09:50
DX: K62.89 Other specified diseases of anus and rectum (principal); E10.9 Type 1 diabetes mellitus without complications; Z79.899 Other long term (current) drug therapy
CPT/HCPCS: 36416; J1885; J2060; J3010

== ENCOUNTER 2018-11-02 12:58 | Emergency (ER) | payer OTHER ==
[2018-11-02] MEDS ORDERED: Fentanyl 100 MCG/2 ML VIAL ONE ×2 (13:49→15:31)
[2018-11-02] MEDS ORDERED: Ketorolac Tromethamine 30 MG/ML VIAL ONE (14:32)
== END 2018-11-02 16:30 | disposition home or self-care (01) ==
LOC: ERS 12:58
DX: G89.3 Neoplasm related pain (acute) (chronic) (principal); E10.9 Type 1 diabetes mellitus without complications; Z79.899 Other long term (current) drug therapy; Z79.4 Long term (current) use of insulin
CPT/HCPCS: 96361; 96374; 96375; 96376; J1885; J3010

== ENCOUNTER 2018-11-14 08:56 | Day surgery (SDC) | payer OTHER ==
[2018-11-14] MEDS ORDERED: Sodium Chloride 0.9% 30 ML ONE (09:03)
[2018-11-14 09:14] VITALS: BP 119/77; TEMP 97.4
[2018-11-14] MEDS ORDERED: Leucovorin Calcium 50 MG in Dextrose 5% in Water 50 ML IVPB SCH (10:15)
[2018-11-14] MEDS ORDERED: DEXTROSE 5% IVPB SCH (10:15)
[2018-11-14] MEDS ORDERED: FLUOROURACIL IVPB SCH (10:15)
[2018-11-14] MEDS ORDERED: Bevacizumab 400 MG in Sodium Chloride 0.9% 84 ML IVPB SCH (10:15)
[2018-11-14] MEDS ORDERED: WATER IVPB SCH (10:15)
[2018-11-14] MEDS ORDERED: Dexamethasone 10 MG, Ondansetron 2MG/ML MDV 15 MG in Sodium Chloride 0.9% 50 ML IVPB SCH (10:15)
== END 2018-11-14 15:32 | disposition home or self-care (01) ==
LOC: ONC/OP 08:56
PROVIDERS: ATTEND Internal Medicine Hematology & Oncology
DX: Z51.11 Encounter for antineoplastic chemotherapy (principal); C20 Malignant neoplasm of rectum; E11.9 Type 2 diabetes mellitus without complications; Z88.1 Allergy status to other antibiotic agents; Z90.49 Acquired absence of other specified parts of digestive tract; Z79.2 Long term (current) use of antibiotics; Z79.4 Long term (current) use of insulin; Z79.899 Other long term (current) drug therapy
CPT/HCPCS: 96367; 96375; 96413; 96415; 96417; J0640; J1100; J2405; J7050; J7070; J9035; J9190; J9263

== ENCOUNTER 2018-12-12 00:04 | Inpatient (IN) | payer OTHER ==
[2018-12-12] MEDS ORDERED: Dexamethasone 10 MG, Ondansetron 2MG/ML MDV 15 MG in Sodium Chloride 0.9% 50 ML IVPB SCH (03:45)
[2018-12-12] MEDS ORDERED: DEXTROSE 5% IVPB SCH (04:00)
[2018-12-12] MEDS ORDERED: Leucovorin Calcium 50 MG in Dextrose 5% in Water 50 ML IVPB SCH (04:00)
[2018-12-12] MEDS ORDERED: FLUOROURACIL IVPB SCH (04:00)
[2018-12-12] MEDS ORDERED: WATER IVPB SCH (04:00)
[2018-12-12] MEDS ORDERED: Bevacizumab 400 MG in Sodium Chloride 0.9% 84 ML IVPB SCH (04:00)
[2018-12-12] MEDS ORDERED: Morphine 2 MG/ML SYRINGE SLOW IVP PRN (13:38)
[2018-12-12] MEDS: Morphine 4 MG/ML VIAL SLOW IVP PRN (14:01)
[2018-12-12 14:49] VITALS: BMI 30.3
[2018-12-12] MEDS ORDERED: Ondansetron ODT 4 MG TAB PO PRN (15:04)
[2018-12-12] MEDS ORDERED: Senokot S 8.6-50 MG TAB PO PRN (15:04)
[2018-12-12] MEDS: Sodium Chloride 0.9% 1,000 ML IV SCH (16:24)
[2018-12-12 16:37] LABS: #Basophils 0.1 thou/uL (0.0-0.2); #Eosinphils 0.2 thou/uL (0.0-0.7); #Lymphocytes 1.5 thou/uL (1.20-3.40); #Monocytes 0.9 thou/uL (0.11-0.59); %Basophils 1.1 % (0.0-1.0); %Eosinophils 2.5 % (0.0-10.0); %Lymphocytes 20.1 % (21.0-51.0); %Monocytes 11.5 % (0.0-10.0); Hemoglobin 11.2 g/dL (14.0-18.0); Mean Corpuscular HGB CONC 31.6 g/dL (32.0-36.0); Mean Corpuscular Hemoglobin 28.8 pg (27.0-31.0); Mean Corpuscular Volume 91.1 fL (78.0-98.0); Mean Platelet Volume 7.5 fL (7.4-10.4); Platelet Count 209 thou/uL (130-400); RBC Distribution Width 16.5 % (11.5-14.5); Red Blood Cell (RBC) Count 3.89 mill/uL (4.70-6.10); White Blood Cell (WBC) Count 7.7 thou/uL (4.8-10.8)
[2018-12-12] MEDS: HYDROcodone/Acetaminophen 10/325 mg Tablet PO PRN ×2 (16:49→22:31)
[2018-12-12 16:56] LABS: ALT (SGPT) 57 U/L (8-55); AST (SGOT) 113 U/L (5-34); Alkaline Phosphatase 1183 U/L (40-150); Anion Gap 12 mmol/L (10-20); BUN (Urea Nitrogen) 12 mg/dL (8.9-20.6); Bilirubin, Total 1.4 mg/dL (0.2-1.2); Calc. Creatinine Clearance 164 mL/min (70-130); Calcium 8.8 mg/dL (7.8-10.44); Carbon Dioxide 25 mmol/L (22-29); Chloride 102 mmol/L (98-107); Estimated GFR-MDRD Greater than 90; Globulin 3.3 g/dL (2.4-3.5); Glucose 158 mg/dL (70-105); Potassium 4.1 mmol/L (3.5-5.1); Protein, Total 6.3 g/dL (6.0-8.3); Sodium 135 mmol/L (136-145)
[2018-12-12] MEDS: Gabapentin 300 MG CAP PO SCH (20:56)
[2018-12-12] MEDS: Morphine ER 30 MG TAB PO SCH (20:56)
[2018-12-13] MEDS: Sodium Chloride 0.9% 1,000 ML IV SCH ×2 (02:30→11:12)
--- NOTE | 2018-12-13 07:51 | HP ---
CHIEF COMPLAINT: Pain. HISTORY OF PRESENT ILLNESS: This patient is a 28-year-old male with a history of colorectal cancer since 2017. The patient has been following with Oncology, receiving chemotherapy. He has not had surgery. The patient reports he did take a break from chemotherapy for about a month because of pain-related issues. He started back it about 2 weeks ago and was supposed to have another episode of chemotherapy on the day of admission. However, on presentation to the Oncology Clinic, the patient was experiencing significant pain. He reports his pain is primarily related to having bowel movement, which causes a severe burning sensation at the perirectal area. The patient is admitted for pain management with the plan to continue chemotherapy once his pain is managed. REVIEW OF SYSTEMS: The patient reports that he has actually been having fairly regular bowel movements. He has a significantly-reduced appetite over the last several days. All other systems were reviewed and all pertinent positives and negatives noted in the history of present illness. PAST MEDICAL HISTORY: History of invasive adenocarcinoma of the rectum with liver metastases and intraabdominal lymph node metastases. The patient also has KRAS mutation. He has a history of some scar tissue in the sigmoid colon causing intermittent obstructive symptoms and there has been discussions in the past regarding the possible need for diverting colostomy, but he reports that the symptoms have largely resolved. History of diabetes mellitus. PAST SURGICAL HISTORY: Appendectomy, MediPort placement. FAMILY HISTORY: His grandfather had colon cancer, at 75. His mother had CHF and ND and of heart disease at 56. He does not know about his father's medical history. SOCIAL HISTORY: The patient is a nondrinker, nondrug user, nonsmoker. He is full code and his sister is his power of patent attorney. ALLERGIES: AMOXICILLIN. CURRENT MEDICATIONS: 1. Morphine ER 30 mg p.o. b.i.d. 2. Hydrocodone 10 mg q.6 hours p.r.n. 3. Neurontin 300 mg p.o. b.i.d. 4. NovoLog FlexPen 25 units subcu b.i.d. PHYSICAL EXAMINATION: VITAL SIGNS: Temperature is 97.6, pulse 98, respirations 16, O2 sat 100% on room air, and blood pressure is 124/84. GENERAL APPEARANCE: Age-appropriate male, slightly pale, in no distress. He is awake, alert, oriented, pleasant, and cooperative. HEENT: PERRL. No OP lesions. HEART: Regular rate and rhythm without murmurs, gallops, or rubs. LUNGS: Clear to auscultation bilaterally with good chest wall expansion and air exchange. ABDOMEN: Soft, nondistended. Positive bowel sounds. He has slight tenderness to palpation in the right lower quadrant pelvic area. No guarding. No rebound. EXTREMITIES: Warm and dry. No edema. No cyanosis or clubbing. NEUROLOGIC: The patient appears to be moving all extremities spontaneously. He has no focal defects. PSYCHIATRIC: The patient has normal affect and behavior. LABORATORY DATA: White count 7.7, hemoglobin 11.2, and platelets 209. Sodium 139, potassium 4.1, chloride 102, CO2 is 25, BUN 12, creatinine 0.8, glucose 158, calcium 8.8, total bili 1.4, AST 113, ALT 57, alkaline phosphatase 1183, and albumin is 3.0. IMPRESSION AND PLAN: 1. Rectal pain. IV morphine along with his regular MS Contin and Shushan. We will also try some lidocaine jelly around the bowel movement times to see if we can treat this locally. 2. Metastatic rectal cancer, KRAS gene followed by Oncology. Presumably, the plan is to get chemotherapy as soon as he is adequately managed with his pain. 3. History of diabetes. We will start Accu-Cheks and continue with his usual insulin dosing. 4. Elevated liver enzymes secondary to liver metastasis. Job ID: [id number] [facility]
[2018-12-13] MEDS: HYDROcodone/Acetaminophen 10/325 mg Tablet PO PRN ×2 (08:16→18:03)
[2018-12-13] MEDS: Morphine ER 30 MG TAB PO SCH ×2 (08:17→21:52)
[2018-12-13] MEDS: Gabapentin 300 MG CAP PO SCH ×2 (08:17→21:54)
[2018-12-13] MEDS ORDERED: INSULIN ASPART 25 UNIT SC SCH (09:00)
[2018-12-13] MEDS ORDERED: Prevnar 13-Val Conj/PF 0.5 ML SYRINGE IM ONE (09:00)
[2018-12-13] MEDS: Lidocaine 2% 11 ML SYR TOP PRN ×2 (09:08→20:00)
[2018-12-13] MEDS ORDERED: Ketorolac Tromethamine 30 MG/ML VIAL IVP PRN (09:46)
[2018-12-13] MEDS ORDERED: Gaviscon Tablet PO PRN (09:58)
[2018-12-13] MEDS ORDERED: Dexamethasone 10 MG, Ondansetron 2MG/ML MDV 15 MG in Sodium Chloride 0.9% 50 ML IVPB SCH (11:15)
[2018-12-13] MEDS: HumaLOG 300 UNITS/3 ML VIAL SC SCH ×2 (11:17→21:54)
[2018-12-13] MEDS ORDERED: Leucovorin Calcium 50 MG in Dextrose 5% in Water 50 ML IVPB SCH (11:30)
[2018-12-13] MEDS ORDERED: DEXTROSE 5% IVPB SCH (11:30)
[2018-12-13] MEDS ORDERED: Bevacizumab 400 MG in Sodium Chloride 0.9% 84 ML IVPB SCH (11:30)
[2018-12-13] MEDS ORDERED: WATER IVPB SCH (11:30)
[2018-12-13] MEDS ORDERED: FLUOROURACIL IVPB SCH (11:30)
--- NOTE | 2018-12-13 12:21 | CON ---
DATE OF CONSULTATION: REASON FOR CONSULT: Rectal cancer. HISTORY OF PRESENT ILLNESS: Mr. Barrera is an unfortunate 28-year-old gentleman who was diagnosed with metastatic rectal cancer in 2018. He has undergone treatment with multiple regimens and currently is on FOLFOX and Avastin. He presented to the clinic yesterday with intractable rectal pain. He takes hydrocodone 10-325 p.r.n. for pain and MS Contin ER. He was given a dose of Toradol and admitted for further treatment. He was due for chemotherapy yesterday, which has been held. His pain has been better controlled during this hospitalization. He does currently complain of gas pain, but no rectal pain or bleeding. PAST MEDICAL HISTORY: 1. Metastatic adenocarcinoma of the rectum. 2. Diabetes mellitus type 2. PAST SURGICAL HISTORY: 1. Appendectomy. 2. Rectal biopsy. ALLERGIES: TO AMOXICILLIN. HOME MEDICATIONS: 1. Gabapentin 300 mg t.i.d. 2. MS Contin 30 ER q.12 hours. 3. Zofran p.r.n. 4. Promethazine p.r.n. 5. MiraLAX daily. 6. Stool softener b.i.d. FAMILY HISTORY: Grandfather with colon cancer. Mother with abdominal polyp. SOCIAL HISTORY: Single. No children. Lives with his family members. REVIEW OF SYSTEMS: A 10-point review of system is negative except for noted in HPI. PHYSICAL EXAMINATION: VITAL SIGNS: Temperature 98.4, pulse is 98, respiratory rate 18, BP is 152/93, and he is 100% on room air. GENERAL: Well-developed, well-nourished male, in mild distress. HEENT: Normocephalic and atraumatic. Pupils are equal and reactive to light. NECK: Supple. CV: Regular rate and rhythm. LUNGS: Clear. ABDOMEN: Soft and nontender. Bowel sounds are positive. EXTREMITIES: There is no clubbing, cyanosis, or edema. SKIN: No rash. NEUROLOGIC: Nonfocal. PSYCH: The patient is alert, oriented, and appropriate. PERTINENT LABS AND X-RAYS: Current WBCs are 7.7, hemoglobin 11.2, hematocrit 35.5, and platelet count 209,000. He has 65% neutrophils, 20% lymphocytes, and 11% monocytes. Sodium is 135, potassium 4.1, chloride 102, CO2 is 25, BUN is 12, creatinine is 0.80, calcium is 8.8, total bilirubin is 1.4, AST is 113, ALT is 57, alkaline phosphatase is 1183. Serum total protein 6.3, albumin 3.0, and globulin 3.3. ASSESSMENT: 1. Metastatic rectal adenocarcinoma with liver metastasis. 2. Intractable rectal pain secondary to metastatic rectal adenocarcinoma with liver metastasis. DISCUSSION: The patient's MS Contin 30 mg has been resumed. We will add Toradol p.r.n. medications. He has been given rectal lidocaine jelly to use prior to bowel movements. We will resume his bowel regimen, which is MiraLAX daily with stool softener twice daily. He is due for chemotherapy and we will administer that today. Thank you for the consult. Job ID: [id number]
--- NOTE | 2018-12-13 15:29 | PDOC.PN ---
- Subjective Encounter Start Date: 12/13/18 Encounter Start Time: 14:00 Doing better today. Has had a BM and did not have severe pain. Receiving chemo today. Had small rash on left hand that is resolving. - Objective Resuscitation Status - Order Detail: 12/12/18 14:57 Resuscitation Status Routine Resuscitation Status: FULL: Full Resuscitation Vital Signs & Weight: Vital Signs (12 hours) Temp Pulse Resp BP Pulse Ox 12/13/18 12:00 98.0 F 94 18 126/71 97 12/13/18 08:40 98.4 F 98 18 152/93 H 100 12/13/18 08:00 98.4 F 98 18 100 12/13/18 03:47 98.0 F 87 16 127/81 97 Weight Admit Weight 188 lb 0.869 oz Weight 188 lb I&O: 12/12/18 12/13/18 12/14/18 06:59 06:59 06:59 Intake Total 2330 50 Balance 2330 50 Result Diagrams: 12/12/18 16:20 12/12/18 16:20 Additional Labs: Accuchecks 12/13/18 12/13/18 12/12/18 11:39 05:47 20:05 POC Glucose 115 H 116 H 131 H Phys Exam - Physical Examination Constitutional: NAD Respiratory: no wheezing, no rales, no rhonchi, clear to auscultation bilateral Cardiovascular: RRR, no significant murmur, no rub Gastrointestinal: soft, non-tender, no distention, positive bowel sounds Musculoskeletal: no edema Psychiatric: normal affect, A&O x 3 Deviation from normal: Small papules on the left hand, thumb. Not erythematous. Dx/Plan (1) Cancer associated pain Code(s): G89.3 - NEOPLASM RELATED PAIN (ACUTE) (CHRONIC) Status: Acute (2) DM type 1 (diabetes mellitus, type 1) Status: Acute Qualifiers: Diabetes mellitus complication status: with unspecified complications Qualified Code(s): E10.8 - Type 1 diabetes mellitus with unspecified complications (3) Adenocarcinoma of rectum metastatic to liver Code(s): C20 - MALIGNANT NEOPLASM OF RECTUM; C78.7 - SECONDARY MALIG NEOPLASM OF LIVER AND INTRAHEPATIC BILE DUCT Status: Chronic - Plan * Pain in improved. * Well enough to tolerate the chemo today. * Inpatient status. * Continue IV pain meds. * Lidocaine jelly seems to have helped. Continue. * Blood sugars well controlled.
[2018-12-13] MEDS: HumaLOG 300 UNITS/3 ML VIAL SC PRN ×2 (16:49→21:55)
[2018-12-13] MEDS: Morphine 4 MG/ML VIAL SLOW IVP PRN (19:57)
[2018-12-13] MEDS: Docusate 100 MG CAP PO SCH (21:54)
[2018-12-13] MEDS ORDERED: Dicyclomine 20 MG TAB PO PRN (22:01)
[2018-12-13] MEDS ORDERED: Dicyclomine 10 MG CAP PO SCH (22:15)
[2018-12-14] MEDS: Morphine ER 30 MG TAB PO SCH (08:36)
[2018-12-14] MEDS: Gabapentin 300 MG CAP PO SCH (08:36)
[2018-12-14 08:37] VITALS: BP 131/85
[2018-12-14] MEDS: Docusate 100 MG CAP PO SCH (08:37)
[2018-12-14] MEDS: HumaLOG 300 UNITS/3 ML VIAL SC SCH (08:49)
[2018-12-14] MEDS ORDERED: Polyethylene Glycol 3350 17 GM Packet PO SCH (09:00)
[2018-12-14 10:17] VITALS: TEMP 98.2
[2018-12-14] MEDS: HYDROcodone/Acetaminophen 10/325 mg Tablet PO PRN (10:46)
[2018-12-14] MEDS: Lidocaine 2% 11 ML SYR TOP PRN (10:49)
[2018-12-14] MEDS: Sodium Chloride 0.9% 1,000 ML IV SCH (12:40)
--- NOTE | 2018-12-15 14:38 | DIS ---
DATE OF ADMISSION: 12/12/2018 DATE OF DISCHARGE: 12/14/2018 DISCHARGE DIAGNOSES: 1. Metastatic rectal cancer with KRAS mutation. 2. Liver metastases. 3. Rectal pain related to cancer and cancer therapy. 4. Diabetes mellitus. HISTORY OF PRESENT ILLNESS: This patient is a 28-year-old male, who was admitted directly from the Cancer Clinic. This patient was diagnosed with metastatic rectal cancer with KRAS mutation at the age 26 and has been undergoing chemotherapy. The patient presented for chemotherapy on the day of admission, however, was having severe pain at the rectal area. The patient reported that this was often related to bowel movements, previously had this and had to postpone some chemotherapy, but started back with one cycle and was to get his second cycle after resuming on the day of admission. However, given his pain, it was felt that he needed to be admitted for further pain management. HOSPITAL COURSE: The patient was admitted with metastatic rectal cancer and cancer related pain at the rectal area. He was started on IV pain medications and had some improvement overnight. We also added some lidocaine jelly to use at the perirectal area around the times of bowel movements in order to decrease the pain related to that. Given his improvement with this pain, he was felt to be appropriate for chemotherapy and he received his normal course of FOLFOX and Avastin. The patient tolerated that well and subsequently was felt to have adequate pain control that he could be discharged to home. PHYSICAL EXAMINATION: VITAL SIGNS: On the day of discharge, temperature 98.2, pulse 98, respirations are 18, O2 saturation 100% on room air, and blood pressure 131/85. GENERAL: He was awake, alert, and oriented. HEART: Regular rate and rhythm. LUNGS: Clear. ABDOMEN: Benign. EXTREMITIES: Without edema. DISPOSITION: The patient is discharged to home. ACTIVITY: As tolerated. He is on no dietary restrictions. He will continue with the lidocaine jelly topically t.i.d., Neurontin 300 mg b.i.d., [place] 10/325 q.6h p.r.n., NovoLog 25 units subcu b.i.d., and morphine ES 30 mg b.i.d. FOLLOWUP: He is to follow up with the Oncology Clinic on 12/26/2018, and he can return to the emergency department at anytime should he have problems prior to that followup. Total time spent in discharge activities, including [id number] time with the patient and coordinating discharge planning was 34 min. Job ID: [id number] [facility]
== END 2018-12-14 15:10 | disposition home or self-care (01) | DRG 375 ==
LOC: ONC/OP 00:04 → ONC 12:35 → OBSVTOIN 12:35 → ONC 13:47
PROVIDERS: ADMIT Internal Medicine; ATTEND Internal Medicine Hematology & Oncology
DX: C20 Malignant neoplasm of rectum (principal); C78.7 Secondary malignant neoplasm of liver and intrahepatic bile duct; C77.2 Secondary and unspecified malignant neoplasm of intra-abdominal lymph nodes; G89.3 Neoplasm related pain (acute) (chronic); E10.8 Type 1 diabetes mellitus with unspecified complications; R21 Rash and other nonspecific skin eruption; Z80.0 Family history of malignant neoplasm of digestive organs; Z79.891 Long term (current) use of opiate analgesic; Z79.4 Long term (current) use of insulin; Z79.899 Other long term (current) drug therapy; Z88.1 Allergy status to other antibiotic agents
CPT/HCPCS: 36416; 80053; 82248; 82378; 83615; 84100; 84550; 85025; J0640; J1100; J1885; J2270; J2405; J7050; J7070; J9035; J9190; J9263; Q0162

== ENCOUNTER 2018-12-26 10:24 | Day surgery (SDC) | payer OTHER ==
[~2018-12-26 10:24] MED LIST: Bevacizumab 400 MG in Sodium Chloride 0.9% 84 ML IVPB SCH; DEXTROSE 5% IVPB SCH; Dexamethasone 10 MG, Ondansetron 2MG/ML MDV 15 MG in Sodium Chloride 0.9% 50 ML IVPB SCH; FLUOROURACIL IVPB SCH; Leucovorin Calcium 50 MG in Dextrose 5% in Water 50 ML IVPB SCH; WATER IVPB SCH
[2018-12-26] MEDS ORDERED: Sodium Chloride 0.9% 20 ML ONE (10:55)
[2018-12-26 12:06] VITALS: BP 94/51; TEMP 97.9
== END 2018-12-26 15:46 | disposition home or self-care (01) ==
LOC: ONC/OP 10:24
PROVIDERS: ATTEND Internal Medicine Hematology & Oncology
DX: Z51.11 Encounter for antineoplastic chemotherapy (principal); C20 Malignant neoplasm of rectum; G89.3 Neoplasm related pain (acute) (chronic); E11.9 Type 2 diabetes mellitus without complications; C78.7 Secondary malignant neoplasm of liver and intrahepatic bile duct; Z88.0 Allergy status to penicillin
CPT/HCPCS: 36415; 80053; 82248; 82378; 83615; 84100; 84550; 96367; 96375; 96413; 96415; 96416; 96417; J0640; J1100; J2405; J7050; J7070; J9035; J9190; J9263

== ENCOUNTER 2018-12-28 08:04 | Inpatient (IN) | payer OTHER ==
[2018-12-28 08:24] LABS: #Eosinphils 0.1 thou/uL (0.0-0.7); #Monocytes 0.4 thou/uL (0.11-0.59); #Neutrophils 4.6 thou/uL (1.40-6.50); %Basophils 0.5 % (0.0-1.0); %Eosinophils 1.1 % (0.0-10.0); %Lymphocytes 16.5 % (21.0-51.0); %Monocytes 6.4 % (0.0-10.0); %Neutrophils 75.5 % (42.0-75.0); Hemoglobin 11.4 g/dL (14.0-18.0); Mean Corpuscular HGB CONC 31.1 g/dL (32.0-36.0); Mean Corpuscular Hemoglobin 28.8 pg (27.0-31.0); Mean Corpuscular Volume 92.8 fL (78.0-98.0); Mean Platelet Volume 7.2 fL (7.4-10.4); Platelet Count 252 thou/uL (130-400); RBC Distribution Width 16.8 % (11.5-14.5); Red Blood Cell (RBC) Count 3.94 mill/uL (4.70-6.10); White Blood Cell (WBC) Count 6.1 thou/uL (4.8-10.8)
[2018-12-28] MEDS ORDERED: Morphine 4 MG/ML VIAL ONE (08:35)
[2018-12-28] MEDS ORDERED: Ondansetron PF 4 MG/2 ML Vial ONE (08:35)
[2018-12-28 08:48] LABS: ALT (SGPT) 62 U/L (8-55); AST (SGOT) 132 U/L (5-34); Albumin 3.3 g/dL (3.5-5.0); Alkaline Phosphatase 1234 U/L (40-150); Anion Gap 13 mmol/L (10-20); BUN (Urea Nitrogen) 15 mg/dL (8.9-20.6); Bilirubin, Total 1.3 mg/dL (0.2-1.2); Calc. Creatinine Clearance 0 mL/min (70-130); Carbon Dioxide 24 mmol/L (22-29); Chloride 103 mmol/L (98-107); Estimated GFR-MDRD Greater than 90; Globulin 3.4 g/dL (2.4-3.5); Glucose 136 mg/dL (70-105); Lipase Less than 4 U/L (8-78); Potassium 4.1 mmol/L (3.5-5.1); Protein, Total 6.7 g/dL (6.0-8.3); Sodium 136 mmol/L (136-145)
[2018-12-28] MEDS ORDERED: Iopamidol 370 76% 50 ML VIAL FS ONE (09:46)
[2018-12-28] MEDS ORDERED: ISOVUE-370 76%-LOCM 1 ML ONE (09:46)
[2018-12-28 10:07] LABS: Bilirubin Negative (Negative); Blood, Urine Negative (Negative); Glucose, Urine (Dipstick) 250 mg/dL (Negative); Leukocyte Negative (Negative); Nitrite Negative (Negative); Protein, Urine (Dipstick) 100 mg/dL (Neg-Trace); Specific Gravity, Urine 1.025 (1.005-1.030); Urobilinogen 0.2 mg/dL (0.2-1.0); pH, Urine 6.5 (5.0-9.0)
[2018-12-28 10:08] LABS: Clarity Clear (Clear)
[2018-12-28] MEDS ORDERED: Fentanyl 100 MCG/2 ML VIAL ONE ×3 (10:24→13:45)
--- NOTE | 2018-12-28 11:55 | CT ---
CT OF ABDOMEN AND PELVIS PERFORMED WITH CONTRAST ENHANCEMENT: History: Abdominal pain x 1 day. History of colon cancer and appendectomy. Comparison: 10-09-18 CT FINDINGS: The lung bases are clear. Diffuse metastatic disease within the liver is again noted. Some of these liver lesions are larger as compared to the prior examination. The spleen size is unchanged. The pancreas region is unremarkable . Gallbladder is not enlarged. Right and left adrenal glands and right and left kidneys are normal in size. No significant periaorti c adenopathy. The colitis changes involving the descending and sigmoid colon down to the level of the rectal mass a re again noted. They are fairly similar in appearance to the previous examination. I do not see any e vidence for extraluminal gas or any type of intravascular gas associated with this. The hepatic porti on of the IVC is very compressed by liver mass. There is what is probably uneven mixing of contrast e nhancing nonenhanced blood extending down to the common femoral vein level. This makes it very diffic ult to exclude the possibility of DVT. Changes are slightly more pronounced on the right side. I susp ect that this is from a combination of the narrowing of the IVC and uneven mixing but I would suggest consideration for a DVT study. There is some perirectal fat stranding. The pelvic and mesenteric nod es appear similar to the prior exam. Review of osseous structures show no lytic or blastic bony change. IMPRESSION: 1. Some very slight worsening to the liver metastatic disease. 2. Colitis changes involving the descending and sigmoid colon down to the level of the rectal mass. T hese findings are somewhat similar to the previous examination. 3. Questionable findings related to the IVC and iliac veins to the common femoral vein level as discu ssed above, although I feel that this is most likely related to incomplete mixing of contrast and non contrast opacified blood. The possibility of a DVT should be considered and consideration for lower e xtremity ultrasound would be recommended. These findings were discussed with Dr. Rodrigues. POS: TPC
--- NOTE | 2018-12-28 12:37 | ULT ---
BILATERAL LOWER EXTREMITY VENOUS ULTRASOUND: HISTORY: A 28-year-old male with metastatic colon cancer, abnormal CT scan of the abdomen and pelvis. TECHNIQUE: [place] scale ultrasound with color flow and spectral Doppler imaging of the deep venous systems of the lower extremities was performed bilaterally. FINDINGS: There is good flow, compression, and augmentation noted in the common femoral, femoral, deep femoral, popliteal, posterior tibial, and greater saphenous veins on either side. IMPRESSION: No evidence of deep vein thrombosis in either lower extremity. POS: C
[2018-12-28] MEDS ORDERED: Morphine 4 MG/ML VIAL SLOW IVP PRN ×2 (15:20→17:25)
[2018-12-28] MEDS ORDERED: Morphine 4 MG/ML VIAL IV SCH (15:30)
[2018-12-28] MEDS ORDERED: Ondansetron PF 4 MG/2 ML Vial IVP PRN ×2 (16:23→17:10)
[2018-12-28] MEDS ORDERED: diphenhydrAMINE 50 MG/ML VIAL IVP PRN (17:10)
[2018-12-28] MEDS ORDERED: Naloxone HCl 0.4 mg/ml Vial IV PRN (17:10)
[2018-12-28] MEDS ORDERED: Promethazine HCl 25 MG/ML VIAL IM PRN (17:10)
[2018-12-28] MEDS ORDERED: diphenhydrAMINE 50 MG/ML VIAL IM PRN (17:10)
[2018-12-28] MEDS ORDERED: diphenhydrAMINE 25 MG CAP PO PRN (17:10)
[2018-12-28] MEDS ORDERED: Communication Order-Pharmacy FS SCH (17:15)
[2018-12-28] MEDS: HYDROmorphone 10 mg/100 ml CADD IVPB PRN (17:48)
[2018-12-28] MEDS: Sodium Chloride 0.9% 1,000 ML IV SCH (18:00)
[2018-12-28] MEDS ORDERED: HumaLOG 300 UNITS/3 ML VIAL SC PRN (18:58)
[2018-12-28] MEDS ORDERED: HYDROmorphone 0.5 MG/0.5 ML SYRINGE SLOW IVP SCH (20:30)
[2018-12-28] MEDS ORDERED: Lidocaine 5% Patch TD SCH ×2 (23:00)
[2018-12-28] MEDS: Zolpidem Tartrate 5 MG TAB PO PRN (23:19)
--- NOTE | 2018-12-29 00:58 | HP ---
PRIMARY CARE PHYSICIAN: Primarily the Oncology Clinic, Kyle Trejo MD, who follows him for colorectal cancer. CHIEF COMPLAINT: Abdominal pain. HISTORY OF PRESENT ILLNESS: This patient is a 28-year-old male with a history of colorectal cancer since 2017. The patient has been following with Oncology, receiving chemotherapy, last dose was 2 days ago. He has not had any surgery. The patient reports that the pain he is experiencing is not atypical within 48 hours of chemo. Reports that pain starts in umbilicus and radiates down to suprapubic, associated with some nausea. Reports he has had some diarrhea, which started in the emergency room and continued on admission. Denies any fever or chills. The patient was admitted to the hospital on December 13, 2018, for similar complaints. The patient underwent pain management therapy at that hospitalization. Pain improved and he resumed chemo and was discharged. In the emergency room, the patient received multiple doses of fentanyl and morphine with some Zofran with limited abatement of pain. The patient was admitted for further management. PAST MEDICAL HISTORY: Colorectal cancer with metastases diagnosed in 2017, currently is on chemotherapy, has a MediPort. PAST SURGICAL HISTORY: MediPort placement, appendectomy. PSYCHIATRIC HISTORY: None. SOCIAL HISTORY: The patient denies any alcohol or drug use. Has no smoking history. KNOWN ALLERGIES: Amoxicillin. CURRENT MEDICATIONS: Include: 1. Gabapentin 300 mg daily. 2. Humalog 25 units subcu b.i.d. 3. [place] 10/325 one tab q.6 hours as needed for pain. 4. Stool softeners, which he takes as pain medication, 50 mg daily. REVIEW OF SYSTEMS: CONSTITUTIONAL: The patient denies chills or fever. EYES: Denies any eye pain or any vision changes. ENT: Denies rhinorrhea or sore throat. CARDIOVASCULAR: palpitation. RESPIRATORY: shortness of breath. GI: Reports abdominal pain. Reports initial constipation, which resolved in the emergency room. He started having diarrhea. Reports some nausea. Denies vomiting. : Denies any dysuria or hematuria. MUSCULOSKELETAL: Denies back pain or fall. Denies injury or neck pain. SKIN: Denies any changes. NEUROLOGIC: Denies headache. Negative review of systems. PHYSICAL EXAMINATION: VITAL SIGNS: Blood pressure 107/73, pulse is 118, respirations 22, pain is 9/10, pulse ox is 98% on room air, temp is 97.5. CONSTITUTIONAL: The patient appears in moderate to severe pain and distress. Alert and oriented to person, place, and time. HEENT: Head is atraumatic and normocephalic. Eyes; eyelids normal to inspection. Pupils equally round and reactive to light. ENT; mucous membranes are moist. Mouth exam is normal. NECK: Normal range of motion. Trachea is midline. RESPIRATORY/CHEST: Breath sounds are clear. Chest movement is symmetrical. CARDIOVASCULAR: Heart rate, regular rate and rhythm. Heart sounds are normal. ABDOMEN: Abdomen is tender diffusely. Bowel sounds are hypoactive. BACK: Normal inspection. Normal range of motion. EXTREMITIES: Upper extremity, inspection normal, range of motion is normal. Radial pulse normal. Lower extremity; sensation intact. Normal range of motion. Pedal pulses are equal bilaterally. NEURO: The patient is oriented to person, place, and time. Speech is normal. SKIN: Normal color. No rashes noted. PSYCH: Normal affect. RADIOLOGY: Abdomen and pelvis CT scan with contrast shows colitis, chronic changes, abnormal blood flow in the IVC and bilateral femoral veins likely due to compression from the liver mass, suggested ultrasound of bilateral extremities to rule out DVT, which was performed and negative bilaterally. PERTINENT LABORATORY DATA: White blood cell count is 6.1, hemoglobin 11.4, hematocrit is 36.5, and platelet count is 252. Chemistry: Sodium 136, potassium 4.1, chloride 103, carbon dioxide 24, gap is 13, BUN is 15, creatinine is 0.72, estimated GFR is 90, glucose 136, total bilirubin is 1.3, AST 132, ALT 62, alkaline phosphatase is 1234, serum total protein 6.7, albumin 3.3, globulin 3.4, lipase less than 4. IMPRESSION AND PLAN: 1. Abdominal pain. Fentanyl and morphine given in the emergency room is not controlling pain. We will consult Anesthesia for possible Dilaudid [facility]. 2. Metastatic rectal cancer. KRAS gene followed by Oncology. We will ask them to consult for any further management suggestions. 3. History of diabetes. We will start Accu-Cheks and continue his home medication. 4. Elevated liver enzymes, secondary to liver metastases. We will trend. 5. Case discussed with Dr. Saba, who agrees to plan. 6. Hospital course will be dependent on clinical findings. Job ID: [id number]
[2018-12-29] MEDS: Sodium Chloride 0.9% 1,000 ML IV SCH ×3 (03:38→23:05)
[2018-12-29 04:01] LABS: #Lymphocytes 1.2 thou/uL (1.20-3.40); #Monocytes 0.2 thou/uL (0.11-0.59); #Neutrophils 2.5 thou/uL (1.40-6.50); %Basophils 0.4 % (0.0-1.0); %Eosinophils 1.2 % (0.0-10.0); %Lymphocytes 29.8 % (21.0-51.0); %Monocytes 5.1 % (0.0-10.0); %Neutrophils 63.5 % (42.0-75.0); Mean Corpuscular Hemoglobin 30.5 pg (27.0-31.0); Mean Corpuscular Volume 92.3 fL (78.0-98.0); Mean Platelet Volume 7.5 fL (7.4-10.4); Platelet Count 187 thou/uL (130-400); RBC Distribution Width 16.7 % (11.5-14.5); Red Blood Cell (RBC) Count 3.62 mill/uL (4.70-6.10); White Blood Cell (WBC) Count 3.9 thou/uL (4.8-10.8)
[2018-12-29 04:35] LABS: ALT (SGPT) 50 U/L (8-55); AST (SGOT) 107 U/L (5-34); Albumin 2.9 g/dL (3.5-5.0); Alkaline Phosphatase 952 U/L (40-150); Anion Gap 15 mmol/L (10-20); BUN (Urea Nitrogen) 13 mg/dL (8.9-20.6); Bilirubin, Total 1.9 mg/dL (0.2-1.2); Calc. Creatinine Clearance 187 mL/min (70-130); Calcium 8.6 mg/dL (7.8-10.44); Carbon Dioxide 21 mmol/L (22-29); Chloride 102 mmol/L (98-107); Estimated GFR-MDRD Greater than 90; Globulin 3.4 g/dL (2.4-3.5); Glucose 97 mg/dL (70-105); Potassium 4.4 mmol/L (3.5-5.1); Protein, Total 6.3 g/dL (6.0-8.3); Sodium 134 mmol/L (136-145)
[2018-12-29] MEDS ORDERED: Clopidogrel Bisulfate 75 MG TAB ONE (06:43)
[2018-12-29] MEDS: Lidocaine 5% Patch TD SCH (08:58)
[2018-12-29] MEDS: Enoxaparin Sodium 40 MG/0.4 ML SYRINGE SC SCH (08:59)
[2018-12-29] MEDS: Pantoprazole 40 MG VIAL IVP SCH (08:59)
[2018-12-29] MEDS ORDERED: LIDOCAINE 2% TOP PRN (09:01)
[2018-12-29] MEDS ORDERED: Lidocaine 2% 11 ML SYR TOP PRN (10:05)
[2018-12-29] MEDS ORDERED: Loperamide HCl 2 MG CAP PO SCH (12:00)
[2018-12-29] MEDS: Lidocaine Patch Removal 1 EACH TOP SCH (12:06)
--- NOTE | 2018-12-29 12:21 | PDOC.PN ---
- Subjective Encounter Start Date: 12/29/18 Encounter Start Time: 12:20 Patient sitting up at edge of bed this morning. He is currently on [employer] and tolerating well. He denies chest pain or shortness of breath, but admits to abdominal pain, back pain and diarrhea. He reports some nausea that is improved with zofran. - Objective MAR Reviewed: Yes Vital Signs & Weight: Vital Signs (12 hours) Temp Pulse Resp BP BP Pulse Ox 12/29/18 08:00 98.0 F 104 H 16 108/65 98 12/29/18 04:00 98.1 F 113 H 16 95/59 L 96 12/29/18 03:39 98.1 F 113 H 16 95/59 L 96 Weight Admit Weight 186 lb 15.232 oz Weight 186 lb 15.232 oz I&O: 12/28/18 12/29/18 12/30/18 06:59 06:59 06:59 Intake Total 1979 Balance 1979 Result Diagrams: 12/29/18 03:54 12/29/18 03:53 Additional Labs: Accuchecks 12/28/18 20:52 POC Glucose 117 H Radiology Reviewed by me: Yes Phys Exam - Physical Examination Mild distress due to pain HEENT: PERRLA, moist MMs Neck: no nodes, supple Respiratory: no wheezing, clear to auscultation bilateral Cardiovascular: RRR, no significant murmur Gastrointestinal: soft, positive bowel sounds Diffuse tenderness to palpation Musculoskeletal: no edema, pulses present Neurological: non-focal, moves all 4 limbs Lymphatic: no nodes Psychiatric: normal affect, A&O x 3 Skin: no rash, cap refill <2 seconds Dx/Plan (1) Abdominal pain Code(s): R10.9 - UNSPECIFIED ABDOMINAL PAIN Status: Acute Qualifiers: Abdominal location: lower abdomen, unspecified Qualified Code(s): R10.30 - Lower abdominal pain, unspecified (2) Cancer associated pain Code(s): G89.3 - NEOPLASM RELATED PAIN (ACUTE) (CHRONIC) Status: Acute (3) DM type 1 (diabetes mellitus, type 1) Status: Acute Qualifiers: Diabetes mellitus complication status: with unspecified complications Qualified Code(s): E10.8 - Type 1 diabetes mellitus with unspecified complications (4) Adenocarcinoma of rectum metastatic to liver Code(s): C20 - MALIGNANT NEOPLASM OF RECTUM; C78.7 - SECONDARY MALIG NEOPLASM OF LIVER AND INTRAHEPATIC BILE DUCT Status: Chronic - Plan cont current plan of care, DVT proph w/lovenox * Continue pain management with dilaudid drip * Oncology and anesthesia following * Give single dose of imodium for diarrhea * add topical lidocaine as needed for rectal pain * Transition to inpatient as patient requiring IV pain management
[2018-12-29] MEDS ORDERED: INSULIN ASPART 25 UNIT SC SCH (21:00)
[2018-12-29] MEDS: Zolpidem Tartrate 5 MG TAB PO PRN (21:02)
[2018-12-29] MEDS: Gabapentin 300 MG CAP PO SCH (21:02)
--- NOTE | 2018-12-29 21:18 | CON ---
DATE OF CONSULTATION: REASON FOR CONSULT: Stage IV rectal cancer. HISTORY OF PRESENT ILLNESS: Mr. Barrera is a 28-year-old male, who was diagnosed with metastatic rectal cancer in 2018. He has undergone treatment with multiple regimens and currently on FOLFOX and Avastin. He presented to the ER yesterday with intractable pain. He does admit that he missed his 12-hour MS Contin that morning and did not take his p.r.n. [place]. He was admitted for intractable pain. His last chemotherapy was on December 26. PAST MEDICAL HISTORY: 1. Stage IV adenocarcinoma of the rectum with liver mets. 2. Diabetes mellitus 2. PAST SURGICAL HISTORY: 1. Appendectomy. 2. Rectal biopsy. ALLERGIES: TO AMOXICILLIN. HOME MEDICATIONS: 1. Gabapentin 300 mg t.i.d. 2. MS Contin 30 ER q.12. 3. Zofran p.r.n. 4. Phenergan p.r.n. 5. MiraLAX daily. 6. Stool softener b.i.d. 7. Imodium p.r.n. FAMILY HISTORY: Grandfather had colon cancer. Mother had an abdominal polyp. SOCIAL HISTORY: He is single. No children. Lives alone. REVIEW OF SYSTEMS: 10-point review of systems is negative except for noted in HPI. PHYSICAL EXAMINATION: VITAL SIGNS: Temperature 97.5, pulse is 99, respiratory rate 16, BP is 101/68. He is 98% on room air. GENERAL: Chronically ill-appearing male, no acute distress. HEENT: Normocephalic, atraumatic. Pupils equal and reactive to light. NECK: Supple. CARDIOVASCULAR: Regular rate and rhythm. LUNGS: Clear. ABDOMEN: Soft, nontender. Bowel sounds are positive. EXTREMITIES: No clubbing, cyanosis, or edema. SKIN: No rash. HEMATOLOGICAL: No petechiae or purpura. NEUROLOGIC: Nonfocal. PSYCHIATRIC: The patient is alert and oriented and appropriate. PERTINENT LABS AND X-RAYS: Current WBCs are 3.9, hemoglobin 11.0, hematocrit 33.4, platelet count is 187,000. He has 63% neutrophils, 30% lymphocytes. Sodium is 134, potassium 4.4, chloride 102, CO2 is 21, BUN is 13, creatinine 0.7, calcium is 8.6, bilirubin is 1.9, AST is 107, ALT is 50, alkaline phosphatase is 952. Serum total protein is 6.3, albumin 2.9, globulin 3.4. Lipase is less than 4. Urine is negative for bacteria. CT of his abdomen and pelvis showed essentially stable disease. Venogram was negative for DVT. ASSESSMENT: 1. Stage IV metastatic rectal cancer. 2. Poorly-controlled pain. DISCUSSION: [facility] have contacted Anesthesia who has started him on a Dilaudid drip. Appreciate their recommendations for pain medication once the Dilaudid has stopped. His pain is well controlled with Dilaudid at this time. The patient has been through multiple pain regimens including fentanyl which he poorly tolerated. His back pain is controlled with the lidocaine drip. During his last hospitalization 2 weeks ago, Toradol IV managed his pain well. I will add that as a p.r.n. drug. Thank you for the consult. We will follow along his hospital course. Job ID: [id number]
[2018-12-29] MEDS: HumaLOG 300 UNITS/3 ML VIAL SC SCH (22:46)
[2018-12-30] MEDS ORDERED: HYDROmorphone 0.5 MG/0.5 ML SYRINGE SLOW IVP SCH (06:15)
[2018-12-30] MEDS: Enoxaparin Sodium 40 MG/0.4 ML SYRINGE SC SCH (08:16)
[2018-12-30] MEDS: Lidocaine 5% Patch TD SCH (08:16)
[2018-12-30] MEDS: Gabapentin 300 MG CAP PO SCH ×2 (08:17→23:06)
[2018-12-30] MEDS: Sodium Chloride 0.9% 1,000 ML IV SCH ×2 (08:31→20:37)
[2018-12-30] MEDS: HumaLOG 300 UNITS/3 ML VIAL SC SCH ×2 (08:40→20:38)
[2018-12-30 08:50] LABS: #Monocytes 0.1 thou/uL (0.11-0.59); #Neutrophils 1.6 thou/uL (1.40-6.50); %Basophils 0.7 % (0.0-1.0); %Eosinophils 1.4 % (0.0-10.0); %Lymphocytes 35.9 % (21.0-51.0); %Monocytes 3.2 % (0.0-10.0); %Neutrophils 58.8 % (42.0-75.0); Hemoglobin 9.3 g/dL (14.0-18.0); Mean Corpuscular HGB CONC 32.1 g/dL (32.0-36.0); Mean Corpuscular Hemoglobin 28.8 pg (27.0-31.0); Mean Corpuscular Volume 89.7 fL (78.0-98.0); Mean Platelet Volume 7.6 fL (7.4-10.4); Platelet Count 154 thou/uL (130-400); RBC Distribution Width 16.4 % (11.5-14.5); Red Blood Cell (RBC) Count 3.24 mill/uL (4.70-6.10); White Blood Cell (WBC) Count 2.7 thou/uL (4.8-10.8)
[2018-12-30] MEDS: Pantoprazole 40 MG VIAL IVP SCH (08:51)
[2018-12-30 09:13] LABS: ALT (SGPT) 41 U/L (8-55); AST (SGOT) 82 U/L (5-34); Albumin 2.5 g/dL (3.5-5.0); Alkaline Phosphatase 847 U/L (40-150); Anion Gap 9 mmol/L (10-20); BUN (Urea Nitrogen) 10 mg/dL (8.9-20.6); Bilirubin, Total 1.8 mg/dL (0.2-1.2); Calc. Creatinine Clearance 214 mL/min (70-130); Calcium 8.1 mg/dL (7.8-10.44); Carbon Dioxide 24 mmol/L (22-29); Chloride 103 mmol/L (98-107); Estimated GFR-MDRD Greater than 90; Globulin 2.9 g/dL (2.4-3.5); Glucose 123 mg/dL (70-105); Potassium 3.9 mmol/L (3.5-5.1); Protein, Total 5.4 g/dL (6.0-8.3); Sodium 132 mmol/L (136-145)
[2018-12-30] MEDS: Lidocaine Patch Removal 1 EACH TOP SCH ×2 (15:06→20:28)
--- NOTE | 2018-12-30 17:09 | PDOC.PN ---
- Subjective Encounter Start Date: 12/30/18 Encounter Start Time: 17:07 Patient pain better controlled with ONLINE MARKETER, still complaining of abdominal pain and back pain. Palliative care following. He denies chest pain, shortness of breath. - Objective MAR Reviewed: Yes Vital Signs & Weight: Vital Signs (12 hours) Temp Pulse Resp BP Pulse Ox 12/30/18 08:00 98 12/30/18 07:51 97.6 F 95 16 114/67 98 Weight Admit Weight 186 lb 15.232 oz Weight 186 lb 15.232 oz I&O: 12/29/18 12/30/18 12/31/18 06:59 06:59 07:59 Intake Total 1979 Balance 1979 Result Diagrams: 12/30/18 08:14 12/30/18 08:14 Additional Labs: Accuchecks 12/30/18 12/30/18 12/29/18 11:24 05:24 19:35 POC Glucose 87 168 H 106 12/29/18 16:45 POC Glucose 144 H Phys Exam - Physical Examination Constitutional: NAD HEENT: PERRLA, moist MMs, oral pharynx no lesions Neck: no nodes, supple Respiratory: no wheezing, clear to auscultation bilateral Cardiovascular: RRR, no significant murmur Gastrointestinal: soft, positive bowel sounds Musculoskeletal: no edema, pulses present Neurological: non-focal, moves all 4 limbs Lymphatic: no nodes Psychiatric: normal affect, A&O x 3 Skin: no rash, cap refill <2 seconds Dx/Plan (1) Abdominal pain Code(s): R10.9 - UNSPECIFIED ABDOMINAL PAIN Status: Acute Qualifiers: Abdominal location: lower abdomen, unspecified Qualified Code(s): R10.30 - Lower abdominal pain, unspecified (2) Cancer associated pain Code(s): G89.3 - NEOPLASM RELATED PAIN (ACUTE) (CHRONIC) Status: Acute (3) DM type 1 (diabetes mellitus, type 1) Status: Acute Qualifiers: Diabetes mellitus complication status: with unspecified complications Qualified Code(s): E10.8 - Type 1 diabetes mellitus with unspecified complications (4) Adenocarcinoma of rectum metastatic to liver Code(s): C20 - MALIGNANT NEOPLASM OF RECTUM; C78.7 - SECONDARY MALIG NEOPLASM OF LIVER AND INTRAHEPATIC BILE DUCT Status: Chronic - Plan cont current plan of care, DVT proph w/lovenox * Continue pain management * Palliative care following * Oncology following * Continue supportive care * Imodium as needed for diarrhea
[2018-12-30] MEDS: Zolpidem Tartrate 5 MG TAB PO PRN (20:26)
[2018-12-30] MEDS: HYDROmorphone 10 mg/100 ml CADD IVPB PRN (22:20)
[2018-12-31] MEDS: Sodium Chloride 0.9% 1,000 ML IV SCH (05:17)
[2018-12-31] MEDS: Enoxaparin Sodium 40 MG/0.4 ML SYRINGE SC SCH (08:31)
[2018-12-31] MEDS: Lidocaine 5% Patch TD SCH (08:32)
[2018-12-31] MEDS: Gabapentin 300 MG CAP PO SCH ×2 (08:32→21:47)
[2018-12-31] MEDS: HumaLOG 300 UNITS/3 ML VIAL SC SCH ×2 (08:34→21:52)
[2018-12-31] MEDS: Dextrose 50% Abboject 50 ML SYRINGE SLOW IVP PRN (10:47)
[2018-12-31] MEDS: Dextrose 5% in Water 1,000 ML IV PRN (11:18)
[2018-12-31] MEDS: Pantoprazole 40 MG VIAL IVP SCH (12:20)
[2018-12-31] MEDS ORDERED: Loperamide HCl 2 MG CAP PO PRN (15:31)
[2018-12-31] MEDS: Simethicone Chewable 80 MG TAB PO PRN (15:46)
[2018-12-31] MEDS: Dicyclomine 10 MG CAP PO SCH ×2 (15:47→21:47)
--- NOTE | 2018-12-31 17:33 | PDOC.PN ---
- Subjective Encounter Start Date: 12/31/18 Encounter Start Time: 17:30 Patient lying in bed in position. He reports increased gas and bloating. He continues to have loose stools, but improving. Discussed consult to surgery to consider option such as colostomy, however he declined at this time. He denies chest pain, palpitation. He continues on TOTER pump. - Objective MAR Reviewed: Yes Vital Signs & Weight: Vital Signs (12 hours) Temp Pulse Resp BP Pulse Ox 12/31/18 08:00 97.9 F 91 16 136/85 99 Weight Admit Weight 186 lb 15.232 oz Weight 186 lb 15.232 oz I&O: 12/30/18 12/31/18 01/01/19 05:59 06:59 06:59 Intake Total Balance Result Diagrams: 12/30/18 08:14 12/30/18 08:14 Additional Labs: Accuchecks 12/31/18 12/31/18 12/31/18 15:43 12:06 11:09 POC Glucose 183 H 118 H 105 12/31/18 12/30/18 12/30/18 05:35 20:17 16:18 POC Glucose 139 H 145 H 96 Phys Exam - Physical Examination Constitutional: NAD HEENT: PERRLA, moist MMs, oral pharynx no lesions Neck: no nodes, no JVD Respiratory: no wheezing, clear to auscultation bilateral Cardiovascular: RRR, no significant murmur Gastrointestinal: soft, positive bowel sounds Diffuse tenderness to palpation especially in left lower quadrant Musculoskeletal: no edema, pulses present Neurological: non-focal, moves all 4 limbs Psychiatric: normal affect, A&O x 3 Skin: no rash, cap refill <2 seconds Dx/Plan (1) Abdominal pain Code(s): R10.9 - UNSPECIFIED ABDOMINAL PAIN Status: Acute Qualifiers: Abdominal location: lower abdomen, unspecified (2) Cancer associated pain Code(s): G89.3 - NEOPLASM RELATED PAIN (ACUTE) (CHRONIC) Status: Acute (3) DM type 1 (diabetes mellitus, type 1) Status: Acute Qualifiers: Diabetes mellitus complication status: with unspecified complications Qualified Code(s): E10.8 - Type 1 diabetes mellitus with unspecified complications (4) 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
[2018-12-31 18:45] LABS: #Lymphocytes 0.7 thou/uL (1.20-3.40); #Monocytes 0.1 thou/uL (0.11-0.59); #Neutrophils 0.9 thou/uL (1.40-6.50); %Basophils 2.6 % (0.0-1.0); %Eosinophils 2.1 % (0.0-10.0); %Lymphocytes 36.6 % (21.0-51.0); %Monocytes 7.5 % (0.0-10.0); %Neutrophils 51.3 % (42.0-75.0); Hemoglobin 9.7 g/dL (14.0-18.0); Mean Corpuscular HGB CONC 29.4 g/dL (32.0-36.0); Mean Corpuscular Hemoglobin 28.5 pg (27.0-31.0); Mean Corpuscular Volume 96.7 fL (78.0-98.0); Mean Platelet Volume 8.2 fL (7.4-10.4); Platelet Count 126 thou/uL (130-400); RBC Distribution Width 16.3 % (11.5-14.5); Red Blood Cell (RBC) Count 3.39 mill/uL (4.70-6.10); White Blood Cell (WBC) Count 1.8 thou/uL (4.8-10.8)
[2018-12-31 19:00] LABS: Anion Gap 9 mmol/L (10-20); BUN (Urea Nitrogen) 6 mg/dL (8.9-20.6); Calc. Creatinine Clearance 218 mL/min (70-130); Calcium 7.8 mg/dL (7.8-10.44); Carbon Dioxide 24 mmol/L (22-29); Chloride 102 mmol/L (98-107); Estimated GFR-MDRD Greater than 90; Glucose 177 mg/dL (70-105); Potassium 4.1 mmol/L (3.5-5.1); Sodium 131 mmol/L (136-145)
[2018-12-31 19:02] LABS: Anisocytosis SLIGHT = 6-15 cells (100X) (0-5/hpf); Hypochromia SLIGHT = 6-15 cells (100X) (0-5/hpf); MDiff Complete? YES; Platelet Morphology Comment Appears Decreased
[2018-12-31] MEDS: HYDROmorphone 10 mg/100 ml CADD IVPB PRN (22:09)
[2019-01-01] MEDS: Dextrose 5% in Water 1,000 ML IV PRN ×3 (00:11→20:00)
[2019-01-01] MEDS: Lidocaine Patch Removal 1 EACH TOP SCH ×2 (00:29→21:26)
[2019-01-01] MEDS: Sodium Chloride 0.9% 1,000 ML IV SCH ×2 (00:29→11:59)
[2019-01-01 04:36] LABS: #Lymphocytes 0.9 thou/uL (1.20-3.40); #Monocytes 0.2 thou/uL (0.11-0.59); #Neutrophils 1.1 thou/uL (1.40-6.50); %Basophils 0.8 % (0.0-1.0); %Eosinophils 1.2 % (0.0-10.0); %Lymphocytes 39.6 % (21.0-51.0); %Monocytes 9.7 % (0.0-10.0); %Neutrophils 48.7 % (42.0-75.0); Hemoglobin 9.2 g/dL (14.0-18.0); Mean Corpuscular HGB CONC 30.6 g/dL (32.0-36.0); Mean Corpuscular Hemoglobin 28.1 pg (27.0-31.0); Mean Corpuscular Volume 91.8 fL (78.0-98.0); Mean Platelet Volume 8.1 fL (7.4-10.4); Platelet Count 134 thou/uL (130-400); RBC Distribution Width 16.1 % (11.5-14.5); Red Blood Cell (RBC) Count 3.27 mill/uL (4.70-6.10); White Blood Cell (WBC) Count 2.3 thou/uL (4.8-10.8)
[2019-01-01] MEDS: Simethicone Chewable 80 MG TAB PO PRN (08:55)
[2019-01-01] MEDS: Dicyclomine 10 MG CAP PO SCH ×4 (08:55→21:25)
[2019-01-01] MEDS: Enoxaparin Sodium 40 MG/0.4 ML SYRINGE SC SCH (08:56)
[2019-01-01] MEDS: Lidocaine 5% Patch TD SCH (08:56)
[2019-01-01] MEDS: Pantoprazole 40 MG VIAL IVP SCH (09:00)
[2019-01-01] MEDS: HumaLOG 300 UNITS/3 ML VIAL SC SCH ×2 (09:03→21:25)
[2019-01-01] MEDS: Dextrose 50% Abboject 50 ML SYRINGE SLOW IVP PRN (10:50)
[2019-01-01] MEDS: Gabapentin 300 MG CAP PO SCH ×2 (11:01→21:25)
[2019-01-01] MEDS ORDERED: tiZANidine HCl 4 MG TAB PO PRN (13:28)
[2019-01-01] MEDS ORDERED: Meloxicam 15 MG TAB PO SCH (13:30)
--- NOTE | 2019-01-01 16:53 | PDOC.PN ---
- Subjective Encounter Start Date: 01/01/19 Encounter Start Time: 09:30 The patient is an unfortunate 28 year old male with metastatic rectal cancer; he presented to the hospital with complaints of severe abdominal pain and has been placed on RECORDER HELPER GRAVITY PROSPECTING pump. Yesterday, Bentyl was added, and the patient states that he did rest well overnight. He had a normal bowel movement this morning. His pain has improved, but he has continued to require IV pain medication/RECORDER HELPER GRAVITY PROSPECTING pump. He denies CP and SOB. - Objective Vital Signs & Weight: Vital Signs (12 hours) Temp Pulse Resp BP Pulse Ox 01/01/19 13:10 97.8 F 100 16 116/69 100 01/01/19 08:00 97.6 F 103 H 16 119/70 99 Weight Admit Weight 186 lb 15.232 oz Weight 186 lb 15.232 oz I&O: 12/31/18 01/01/19 01/02/19 06:59 06:59 06:59 Intake Total Balance Result Diagrams: 01/01/19 04:24 12/31/18 18:39 Additional Labs: Accuchecks 01/01/19 01/01/19 01/01/19 13:08 11:04 10:52 POC Glucose 154 H 178 H 41 L* 01/01/19 01/01/19 12/31/18 10:40 05:52 21:47 POC Glucose 40 L* 114 H 186 H 12/31/18 12/31/18 15:43 10:45 POC Glucose 183 H Less than 35 L* Radiology Reviewed by me: Yes Phys Exam - Physical Examination Constitutional: NAD HEENT: moist MMs, sclera anicteric Neck: no JVD Respiratory: no wheezing, no rales, no rhonchi, clear to auscultation bilateral Cardiovascular: RRR Gastrointestinal: soft, non-tender, positive bowel sounds trace edema Neurological: non-focal Psychiatric: normal affect, A&O x 3 Skin: no rash, normal turgor Dx/Plan (1) Cancer associated pain Code(s): G89.3 - NEOPLASM RELATED PAIN (ACUTE) (CHRONIC) Status: Acute (2) 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 At this point, the goal of care is to control the patient's pain on oral medication, so that he may be discharged. Have discussed the case with Dr. Ziegler, who will consult for further pain management. Will await recommendations, and continue RECORDER HELPER GRAVITY PROSPECTING pump for now. Continue Bentyl. Patient did have an episode of hypoglycemia, and will reduce Humalog dose.
--- NOTE | 2019-01-01 17:31 | PDOC.EVN ---
Event Note - Event Note Event Note: On 12/31/18 assessed patient, reviewed record and discussed with NOLVIA Sebastian. Mr. Barrera continues to have some problems with pain. He says he was doing well in the past with the long acting morphine. He says he did not do well with duragesic patch as he started vomiting within three hours of putting it on. The pain is more cramping and colicky now. He is awake and alert. Having paroxysms of pain. Will try to get pain management involved to get a better pain management plan in place for DC planning. He is not interested in a diverting colostomy and is probably not a good candidate for one.
[2019-01-01] MEDS: DULoxetine 30 MG CAP PO SCH (21:25)
--- NOTE | 2019-01-01 21:38 | CON ---
DATE OF CONSULTATION: REASON FOR CONSULTATION: Abdominal and rectal pain. HISTORY OF PRESENT ILLNESS: A 28-year-old male with a history of stage IV metastatic cancer, diagnosed in 2018. He has had multiple rounds of chemotherapy and presented to the ER several days ago with intractable pain. He has been offered a colectomy by general surgeon, but has refused. His pain has been controlled with MS Contin q.12 hours and hydrocodone p.r.n. He was admitted for intractable pain. He has been noncompliant with his MS Contin and missed his last dose prior to admission. He has been placed on Dilaudid ROLLER ENGRAVER and has used approximately 10 mg over the last 24 hours. Toradol has also been used in the past with efficacy. PAST MEDICAL HISTORY: 1. Significant for stage IV adenocarcinoma of the rectum with liver metastasis. Recent pelvic and abdominal CT demonstrates expansion of the liver mets. 2. He has [id number] diabetes. PAST SURGICAL HISTORY: 1. Rectal biopsy. 2. Appendectomy. HOME MEDICATIONS: 1. MS Contin 30 mg q.12. 2. [place] p.r.n. 3. He is also on gabapentin t.i.d. 4. Zofran p.r.n. 5. Phenergan p.r.n. FAMILY HISTORY: Colon cancer. SOCIAL HISTORY: No . Lives alone. Has had numerous visits to the emergency room for pain. REVIEW OF SYSTEMS: Negative with the exception of what is mentioned in the history of present illness. PHYSICAL EXAMINATION: VITAL SIGNS: He is afebrile. Vital signs are stable. GENERAL: He is conversive. Does not appear in any acute distress. HEENT: Unremarkable. NECK: Supple. HEART: Unremarkable. LUNGS: Unremarkable. ABDOMEN: Soft. There is some tenderness over the pelvis to palpation, but nonacute. LABORATORY DATA: In the chart. IMPRESSION AND PLAN: 1. Stage IV metastatic rectal cancer with poorly-controlled lower abdominal and rectal pain. The patient refusing general surgical care. I wound recommend continuing his MS Contin 30 mg b.i.d., can even increase to t.i.d. and [place] p.r.n., but encourage compliance. 2. We will also begin Cymbalta and Zanaflex for muscle relaxation. Job ID: [id number]
[2019-01-02 05:27] LABS: Band 2 % (5-11); Hemoglobin 8.3 g/dL (14.0-18.0); Lymphocytes 30 % (21-51); MDiff Complete? YES; Mean Corpuscular HGB CONC 32.1 g/dL (32.0-36.0); Mean Corpuscular Hemoglobin 28.8 pg (27.0-31.0); Mean Corpuscular Volume 89.7 fL (78.0-98.0); Mean Platelet Volume 7.8 fL (7.4-10.4); Monocytes 16 % (0-10); Neutrophil 52 % (42-75); Platelet Count 118 thou/uL (130-400); Platelet Morphology Comment Appears Decreased; RBC Distribution Width 16.3 % (11.5-14.5); Red Blood Cell (RBC) Count 2.89 mill/uL (4.70-6.10); White Blood Cell (WBC) Count 2.8 thou/uL (4.8-10.8)
[2019-01-02] MEDS: Dextrose 5% in Water 1,000 ML IV PRN (06:29)
[2019-01-02] MEDS: Sodium Chloride 0.9% 1,000 ML IV SCH ×2 (07:17→16:31)
[2019-01-02] MEDS: Enoxaparin Sodium 40 MG/0.4 ML SYRINGE SC SCH (08:48)
[2019-01-02] MEDS: Pantoprazole 40 MG VIAL IVP SCH (08:48)
[2019-01-02] MEDS: Gabapentin 300 MG CAP PO SCH ×2 (08:50→21:03)
[2019-01-02] MEDS: Dicyclomine 10 MG CAP PO SCH ×4 (08:50→21:02)
[2019-01-02] MEDS: HumaLOG 300 UNITS/3 ML VIAL SC SCH ×2 (08:57→20:58)
[2019-01-02] MEDS: Lidocaine 5% Patch TD SCH (08:58)
[2019-01-02] MEDS ORDERED: Morphine ER 30 MG TAB PO SCH (11:00)
--- NOTE | 2019-01-02 11:54 | PRG ---
DATE OF SERVICE: 01/02/2019 SUBJECTIVE: The patient is doing okay. Still having what he calls "bubble gas pain." I am more manageable at this point. OBJECTIVE: VITAL SIGNS: T-max 97.7, pulse 91, respirations 14, O2 saturation 96% to 100% on room air, and blood pressure 118/72. GENERAL APPEARANCE: Age-appropriate male, in no distress. HEART: Regular rate and rhythm. No murmurs, gallops, or rubs. LUNGS: Clear to auscultation bilaterally. ABDOMEN: Soft, nontender, and nondistended. Positive bowel sounds. No masses. No organomegaly. EXTREMITIES: With no cyanosis, clubbing or edema. LABORATORY DATA: White count 2.8, hemoglobin 8.3, platelets 118. He has 52% neutrophils, 2% bands. Blood sugar 149 up to 225. IMPRESSION AND PLAN: Cancer-associated proctodynia. The patient is on a BRIDGE OPERATOR SLIP pump with no basal rate. He is being switched over to long-acting p.o. morphine with the addition of gabapentin and duloxetine per Pain Management. If he can remain off pump today, we will have that discontinued and hopes that we can get his pain adequately controlled to consider discharge as early as tomorrow. Stage IV metastatic rectal cancer. The patient is status post chemo. His counts are starting to recover. Neutropenia. He is technically not neutropenic as of right now, but his counts are very close. Can likely discontinue precautions. Pancytopenia secondary to chemotherapy. DISPOSITION: I talked to the patient about discharge. Hopefully, if he get the medicines adequate for pain control today, we will anticipate discharge home tomorrow with outpatient followup with the [facility]. Job ID: [id number]
[2019-01-02] MEDS: Meloxicam 15 MG TAB PO SCH (13:26)
[2019-01-02] MEDS: HYDROcodone/Acetaminophen 10/325 mg Tablet PO PRN (19:09)
[2019-01-02] MEDS ORDERED: Senokot 8.6 MG TAB PO PRN (20:17)
[2019-01-02] MEDS: Lidocaine Patch Removal 1 EACH TOP SCH (21:00)
[2019-01-02] MEDS: Morphine ER 30 MG TAB PO SCH (21:01)
[2019-01-02] MEDS: Docusate 100 MG CAP PO SCH (21:02)
[2019-01-02] MEDS: DULoxetine 30 MG CAP PO SCH (21:03)
[2019-01-02] MEDS: Zolpidem Tartrate 5 MG TAB PO PRN (21:05)
[2019-01-03] MEDS: Sodium Chloride 0.9% 1,000 ML IV SCH ×2 (02:14→13:24)
[2019-01-03] MEDS: HYDROcodone/Acetaminophen 10/325 mg Tablet PO PRN ×2 (02:52→15:32)
[2019-01-03 05:18] LABS: Hemoglobin 8.6 g/dL (14.0-18.0); Hypochromia SLIGHT = 6-15 cells (100X) (0-5/hpf); Lymphocytes 28 % (21-51); MDiff Complete? YES; Mean Corpuscular HGB CONC 31.1 g/dL (32.0-36.0); Mean Corpuscular Hemoglobin 28.3 pg (27.0-31.0); Mean Corpuscular Volume 91.2 fL (78.0-98.0); Mean Platelet Volume 7.7 fL (7.4-10.4); Monocytes 16 % (0-10); Neutrophil 56 % (42-75); Platelet Count 137 thou/uL (130-400); Platelet Morphology Comment Appears Adequate; RBC Distribution Width 16.7 % (11.5-14.5); Red Blood Cell (RBC) Count 3.02 mill/uL (4.70-6.10); White Blood Cell (WBC) Count 3.3 thou/uL (4.8-10.8)
[2019-01-03 08:27] VITALS: BP 121/77; TEMP 97.4
[2019-01-03] MEDS: Gabapentin 300 MG CAP PO SCH (08:34)
[2019-01-03] MEDS: Pantoprazole 40 MG VIAL IVP SCH (08:34)
[2019-01-03] MEDS: Meloxicam 15 MG TAB PO SCH (08:34)
[2019-01-03] MEDS: Lidocaine 5% Patch TD SCH (08:34)
[2019-01-03] MEDS: Docusate 100 MG CAP PO SCH (08:34)
[2019-01-03] MEDS: Morphine ER 30 MG TAB PO SCH (08:34)
[2019-01-03] MEDS: Enoxaparin Sodium 40 MG/0.4 ML SYRINGE SC SCH (10:46)
[2019-01-03] MEDS: Dicyclomine 10 MG CAP PO SCH ×2 (10:47→13:24)
[2019-01-03] MEDS: HumaLOG 300 UNITS/3 ML VIAL SC SCH (10:47)
--- NOTE | 2019-01-03 16:52 | DIS ---
DATE OF ADMISSION: 12/28/2018 DATE OF DISCHARGE: 01/03/2019 CONSULTANTS: Dr. Alexandre Capps, Pain Management. HOSPITAL COURSE: The patient was a 28-year-old male with history of colorectal cancer since 2017, who received chemotherapy 2 days prior to this hospitalization. He reported some atypical pain in iliacus area which radiated down to the suprapubic area, which was associated with some nausea. Also, he had some diarrhea which started in the emergency room and continued on admission. He denied any fever or chills. In November, he was admitted to the hospital for similar complaints. During this time, he underwent pain management therapy at the hospital. The pain improved and the patient was discharged home and resumed his chemotherapy. This time, in the emergency room, he received multiple doses of fentanyl and morphine with some Zofran with limited abatement of pain. He got admitted for further management of his pain. At the time of admission, his CT of the abdomen and pelvis with contrast showed colitis, chronic changes, abnormal blood flow in the IVC and bilateral femoral veins, likely due to compression from the liver mass, suggested ultrasound of bilateral extremities to rule out DVTs, which was performed and was negative bilaterally. At the time of admission, his white count was 6.1, hemoglobin 11.4, hematocrit 36.5, and platelet count was 252,000. Sodium 136, potassium 4.1, chloride 103, CO2 of 24, BUN 15, creatinine 0.72, alkaline phosphatase was up to 1234. The patient was seen by Anesthesia on consultation for Dilaudid BILLING CLERK pump. The pain management was continued. He had p.r.n.'s for his diarrhea. Subsequently, he was seen by Dr. Capps, Pain Management MD, who recommended to continue MS Contin 30 mg twice a day, [place] p.r.n., start Cymbalta and Zanaflex for possible muscle relaxation. He improved significantly to the point that he would like to go home. The BILLING CLERK pump was discontinued. PHYSICAL EXAMINATION: VITAL SIGNS: His blood pressure is 121/77, pulse is 89, temperature is 97.4, respirations 16, and O2 saturation is 99% on room air. LUNGS: Clear. HEART: S1 and S2 normal. No S3. No S4. No any murmur. ABDOMEN: Soft. Mildly tender on palpation in the center and in the lower parts. No guarding. No masses. DISCHARGE INSTRUCTIONS: The patient is discharged home in good condition with recommendation to stay on regular diet, activities as tolerated. DISCHARGE MEDICATIONS: 1. Morphine. 2. MS Contin 30 mg twice a day. 3. q.6 hours as needed. 4. Insulin aspart 25 units twice a day. 5. Gabapentin 300 mg twice a day. 6. Meloxicam 15 mg once a day. 7. Lidoderm patch one daily. 8. Docusate sodium 100 mg twice a day. 9. Bentyl 10 mg 4 times a day. 10. Duloxetine 30 mg once a day. FOLLOWUP: He will follow up with his primary care physician in 1 week. He is seen and examined before his discharge. TIME SPENT: Discharge time is less than 30 minutes. Job ID: [id number]
== END 2019-01-03 18:02 | disposition home or self-care (01) | DRG 947 ==
LOC: ERS 08:04 → OBSVTOIN 15:02 → ONC 15:02
PROVIDERS: ADMIT Internal Medicine; ATTEND Internal Medicine
DX: G89.3 Neoplasm related pain (acute) (chronic) (principal); D61.810 Antineoplastic chemotherapy induced pancytopenia; C20 Malignant neoplasm of rectum; C78.7 Secondary malignant neoplasm of liver and intrahepatic bile duct; E10.9 Type 1 diabetes mellitus without complications; T45.1X5A Adverse effect of antineoplastic and immunosuppressive drugs, initial encounter; K52.9 Noninfective gastroenteritis and colitis, unspecified; D63.0 Anemia in neoplastic disease; Z91.14 Patient's other noncompliance with medication regimen; Z90.49 Acquired absence of other specified parts of digestive tract; Z79.891 Long term (current) use of opiate analgesic; Z88.0 Allergy status to penicillin
CPT/HCPCS: 36415; 36416; 74177; 80048; 80053; 81003; 81015; 83690; 85025; 93970; 96374; 96375; 96376; C9113; J1170; J1610; J1642; J1650; J2270; J2405; J3010; Q0163; Q9966; Q9967

== ENCOUNTER 2019-01-09 08:54 | Day surgery (SDC) | payer OTHER ==
[~2019-01-09 08:54] MED LIST changes: +Dexamethasone Sod Phosphate 10 MG, Ondansetron 2MG/ML MDV 15 MG in Sodium Chloride 0.9%... IVPB SCH
[2019-01-09] MEDS ORDERED: Sodium Chloride 0.9% 20 ML ONE (09:13)
[2019-01-09 11:13] VITALS: BP 112/74; TEMP 98.1
== END 2019-01-09 14:23 | disposition home or self-care (01) ==
LOC: ONC/OP 08:54
PROVIDERS: ATTEND Internal Medicine Hematology & Oncology
DX: Z51.11 Encounter for antineoplastic chemotherapy (principal); C20 Malignant neoplasm of rectum; G89.3 Neoplasm related pain (acute) (chronic); E11.9 Type 2 diabetes mellitus without complications; Z90.49 Acquired absence of other specified parts of digestive tract; Z88.1 Allergy status to other antibiotic agents; Z79.891 Long term (current) use of opiate analgesic; Z79.1 Long term (current) use of non-steroidal anti-inflammatories (NSAID); Z79.4 Long term (current) use of insulin; Z79.899 Other long term (current) drug therapy
CPT/HCPCS: 80053; 82248; 82378; 83615; 84100; 84550; 96367; 96375; 96413; 96415; 96417; J0640; J1100; J2405; J7050; J7070; J9035; J9190; J9263

== ENCOUNTER 2019-01-10 10:18 | Emergency (ER) | payer OTHER ==
[2019-01-10] MEDS ORDERED: Ondansetron ODT 4 MG TAB ONE (10:52)
[2019-01-10] MEDS ORDERED: Morphine 4 MG/ML VIAL ONE ×2 (10:52→13:01)
== END 2019-01-10 12:56 | disposition home or self-care (01) ==
LOC: ERS 10:18
DX: R11.2 Nausea with vomiting, unspecified (principal); T45.1X5A Adverse effect of antineoplastic and immunosuppressive drugs, initial encounter; C18.9 Malignant neoplasm of colon, unspecified; C78.7 Secondary malignant neoplasm of liver and intrahepatic bile duct; E10.9 Type 1 diabetes mellitus without complications; Z79.891 Long term (current) use of opiate analgesic; Z79.899 Other long term (current) drug therapy
CPT/HCPCS: 96372; 99284; J2270; Q0162

== ENCOUNTER 2019-01-14 07:50 | Inpatient (IN) | payer OTHER ==
[2019-01-14] MEDS ORDERED: Ondansetron PF 4 MG/2 ML Vial ONE (08:19)
[2019-01-14] MEDS ORDERED: Morphine 10 MG/ML VIAL ONE (08:19)
[2019-01-14 08:30] LABS: #Monocytes 0.1 thou/uL (0.11-0.59); #Neutrophils 1.6 thou/uL (1.40-6.50); %Basophils 0.4 % (0.0-1.0); %Eosinophils 0.9 % (0.0-10.0); %Lymphocytes 35.6 % (21.0-51.0); %Neutrophils 58.1 % (42.0-75.0); Hemoglobin 10.6 g/dL (14.0-18.0); Mean Corpuscular HGB CONC 31.1 g/dL (32.0-36.0); Mean Corpuscular Hemoglobin 28.2 pg (27.0-31.0); Mean Corpuscular Volume 90.8 fL (78.0-98.0); Mean Platelet Volume 7.7 fL (7.4-10.4); Platelet Count 161 thou/uL (130-400); RBC Distribution Width 16.4 % (11.5-14.5); Red Blood Cell (RBC) Count 3.76 mill/uL (4.70-6.10); White Blood Cell (WBC) Count 2.8 thou/uL (4.8-10.8)
[2019-01-14 08:46] LABS: ALT (SGPT) 19 U/L (8-55); AST (SGOT) 43 U/L (5-34); Alkaline Phosphatase 624 U/L (40-150); Anion Gap 10 mmol/L (10-20); BUN (Urea Nitrogen) 14 mg/dL (8.9-20.6); Bilirubin, Total 2.1 mg/dL (0.2-1.2); Calc. Creatinine Clearance 0 mL/min (70-130); Calcium 8.4 mg/dL (7.8-10.44); Carbon Dioxide 26 mmol/L (22-29); Chloride 99 mmol/L (98-107); Estimated GFR-MDRD Greater than 90; Globulin 3.1 g/dL (2.4-3.5); Glucose 146 mg/dL (70-105); Lipase Less than 4 U/L (8-78); Potassium 4.8 mmol/L (3.5-5.1); Protein, Total 6.1 g/dL (6.0-8.3); Sodium 130 mmol/L (136-145)
[2019-01-14 09:50] LABS: Bilirubin Small (Negative); Blood, Urine Negative (Negative); Clarity CLEAR (Clear); Glucose, Urine (Dipstick) 100 mg/dL (Negative); Leukocyte Negative (Negative); Nitrite Negative (Negative); Protein, Urine (Dipstick) 30 mg/dL (Neg-Trace); Specific Gravity, Urine 1.016 (1.002-1.036)
[2019-01-14 09:51] LABS: Bacteria/HPF None Seen HPF (None Seen); Hyaline Casts/LPF 4-6 HYALINE CAST LPF (0-3 Hyaline); Pathc Cast-AUWi Flag 0.13 (0-2.49); RBC/HPF 0-3 HPF (0-3); Squamous Epithelial 0-3 HPF (0-3); WBC/HPF 0-3 HPF (0-3)
[2019-01-14] MEDS ORDERED: HYDROmorphone 0.5 MG/0.5 ML SYRINGE ONE (10:13)
--- NOTE | 2019-01-14 11:11 | HP ---
CHIEF COMPLAINT: Nausea, diarrhea, and abdominal pain. HISTORY OF PRESENT ILLNESS: The patient is a 28-year-old male, well known to this hospital, who came to the emergency room to evaluate his nausea, abdominal pain, and diarrhea, which is going on for few days. Apparently, he had chemotherapy done on and the pump was removed and soon after that he started having some diarrhea with nausea and vomiting and abdominal pain on and off for the last few days. He did not have any fever or chills. Preliminary workup in the emergency room did not reveal any significant acute abdominal problem and the patient is getting admitted for management of his diarrhea and gastroenteritis and pain management. PAST MEDICAL HISTORY: Colorectal cancer with metastasis diagnosed in 2019. PAST SURGICAL HISTORY: 1. MediPort placement. 2. Appendectomy. SOCIAL HISTORY: He denies any alcohol intake or use of illicit drugs. He does not have any smoking history. ALLERGIES: AMOXICILLIN. CURRENT MEDICATIONS: 1. unclear frequency. 2. [place] 10/325 mg one tablet every 6 hours p.r.n. 3. Morphine 30 mg tablet every 12 hours. 4. Dicyclomine 10 mg tablet every 4 hours p.r.n. REVIEW OF SYSTEMS: All 14-systems were reviewed and they were negative except for findings mentioned in the HPI. PHYSICAL EXAMINATION: VITAL SIGNS: Blood pressure is 99/68, pulse is 100, temperature is 98.5, and O2 saturation is 100% on room air. HEENT: His head is atraumatic and normocephalic. Eyes are PERRLA. Sclerae nonicteric. Oral mucosa is dry. NECK: Supple. LUNGS: Clear. HEART: S1 and S2, tachycardic. No S3. No S4. ABDOMEN: Soft. Somewhat tender in the mid center on deeper palpation with mild guarding and bowel sounds are present. EXTREMITIES: No clubbing, cyanosis, or edema. NEUROLOGICAL: He is alert and oriented x4. There is no any motor or sensory deficits present. LABORATORY DATA: Labs showed white count of 2.8, hemoglobin 10.6, hematocrit 34.1, and platelet count 161,000. Sodium of 130, potassium 4.8, chloride 99, CO2 of 26, BUN 14, creatinine 0.78, glucose 146, total bilirubin 2.1, AST 43, ALT 19, alkaline phosphatase 624, albumin 3.0. Urine showed 30 of proteins, 100 of glucose, small amount of bilirubin, and 4 to 6 hyaline casts. The rest of urinalysis within normal limits. EKG showed sinus tachycardia, no ischemic changes. X-ray acute abdominal series, no any specific finding. No obstruction. IMPRESSION: 1. Acute gastroenteritis, unclear etiology at this point. 2. Hyponatremia secondary to vomiting. 3. Vague abdominal pain, most likely related to his rectal cancer with metastasis. PLAN: Plan is full admission. Condition is fair. Activity, bedrest and bathroom privileges. IV normal saline 100 mL/h. Anesthesia consult for Dilaudid pump for pain management if Morphine IV is not enough. For now, we will continue his IV push morphine every 4 hours p.r.n. We will check his stool for culture and we will use p.r.n. antiemetics. Job ID: [id number]
[2019-01-14] MEDS ORDERED: Ondansetron PF 4 MG/2 ML Vial IVP PRN (11:38)
[2019-01-14] MEDS: Sodium Chloride 0.9% 1,000 ML IV SCH ×2 (11:58→20:37)
--- NOTE | 2019-01-14 13:01 | RAD ---
FRONTAL CHEST 2 VIEWS ABDOMEN: PROVIDED CLINICAL HISTORY: Nausea and vomiting. FINDINGS: Comparison chest radiograph 08/30/2018. Cardiac and mediastinal silhouette is unchanged in appearance . Left subclavian implanted port is again seen in similar position. No focal consolidation, pleural fluid, or pneumothorax apparent. Supine and upright abdominal radiographs demonstrate a nonspecific bowel gas pattern. There is no ev idence for a pneumoperitoneum. No radiographically apparent urinary tract calculi. IMPRESSION: No evidence for an acute process. POS: JEFERSON
[2019-01-14 13:29] VITALS: BMI 27.6
[2019-01-14] MEDS: Morphine 4 MG/ML VIAL SLOW IVP PRN ×3 (13:54→22:10)
[2019-01-14] MEDS: HYDROcodone/Acetaminophen 10/325 mg Tablet PO PRN (19:40)
[2019-01-14] MEDS: Famotidine/PF 20 mg/2ml Vial SLOW IVP SCH (20:37)
[2019-01-15] MEDS: Morphine 4 MG/ML VIAL SLOW IVP PRN ×4 (02:11→18:14)
[2019-01-15] MEDS: HYDROcodone/Acetaminophen 10/325 mg Tablet PO PRN ×2 (04:05→09:55)
[2019-01-15 04:35] LABS: #Lymphocytes 1.1 thou/uL (1.20-3.40); #Monocytes 0.3 thou/uL (0.11-0.59); #Neutrophils 0.9 thou/uL (1.40-6.50); %Basophils 0.3 % (0.0-1.0); %Eosinophils 1.1 % (0.0-10.0); %Lymphocytes 46.6 % (21.0-51.0); %Monocytes 11.2 % (0.0-10.0); %Neutrophils 40.8 % (42.0-75.0); Hemoglobin 9.1 g/dL (14.0-18.0); Mean Corpuscular Volume 90.7 fL (78.0-98.0); Platelet Count 113 thou/uL (130-400); RBC Distribution Width 16.2 % (11.5-14.5); Red Blood Cell (RBC) Count 3.12 mill/uL (4.70-6.10); White Blood Cell (WBC) Count 2.3 thou/uL (4.8-10.8)
[2019-01-15 04:53] LABS: Anion Gap 11 mmol/L (10-20); BUN (Urea Nitrogen) 8 mg/dL (8.9-20.6); Calc. Creatinine Clearance 182 mL/min (70-130); Carbon Dioxide 23 mmol/L (22-29); Chloride 106 mmol/L (98-107); Estimated GFR-MDRD Greater than 90; Glucose 86 mg/dL (70-105); Potassium 3.9 mmol/L (3.5-5.1); Sodium 136 mmol/L (136-145)
[2019-01-15] MEDS: Sodium Chloride 0.9% 1,000 ML IV SCH ×3 (06:27→15:35)
[2019-01-15] MEDS: Enoxaparin Sodium 40 MG/0.4 ML SYRINGE SC SCH (09:05)
[2019-01-15] MEDS: Famotidine/PF 20 mg/2ml Vial SLOW IVP SCH ×2 (09:12→20:35)
[2019-01-15] MEDS: Vancomycin HCl 25 MG/ML Oral PO SCH ×3 (12:29→20:35)
--- NOTE | 2019-01-15 12:52 | PRG ---
DATE OF SERVICE: 01/15/2019 SUBJECTIVE: The patient is seen and examined at the bedside. He still has quite a bit of pain in his abdomen and diarrhea. No vomiting. No nausea. He is able to keep his drinking water down in his stomach. OBJECTIVE: VITAL SIGNS: Blood pressure is 103/56, pulse is 85, temperature is 98.0, that is the maximal temperature, respiratory rate is 16, and O2 saturation is 100% on room air. HEENT: His head is atraumatic and normocephalic. Oral mucosa is dry. NECK: Supple. LUNGS: Clear. HEART: S1, S2 normal. ABDOMEN: Mildly distended. Tender all over to deeper palpation. No guarding. No masses. EXTREMITIES: No clubbing, cyanosis, or edema. NEUROLOGICAL: He is alert and oriented x4. There is no any motor or sensory deficits present. Cranial nerves are intact. LABORATORY DATA: White count of 2.3, hemoglobin of 9.1, platelet count 113, neutrophils 40.8. Chemistry showed normal electrolytes, BUN of 8, creatinine 0.88, glucose ranging from 103-133, calcium 8.0. Microbiology is showing negative culture for antigen, negative for Escherichia coli, shiga toxin 1 and Shigatoxin 2, positive Clostridium difficile toxin and positive for stool lactoferrin, negative for influenza A and B. IMPRESSION: 1. Clostridium difficile colitis. 2. Hyponatremia secondary to vomiting, improved. 3. Stage IV adenocarcinoma of the rectum with liver metastasis. 4. Diabetes mellitus. 5. Mild neutropenia. PLAN: Plan is to start him on vancomycin p.o. 125 mg every 6 hours. Continue his oral long-acting morphine ER 30 mg twice a day for better pain control. Continue his gabapentin, duloxetine, and meloxicam. Continue IV fluids and apply precautions for Clostridium difficile colitis. Job ID: [id number]
[2019-01-15] MEDS ORDERED: Lidocaine 5% Patch TD PRN ×2 (13:00→20:41)
[2019-01-15] MEDS: Morphine ER 30 MG TAB PO SCH (20:35)
[2019-01-15] MEDS: Saccharomyces boulardii 250 MG CAP PO SCH (20:35)
[2019-01-15] MEDS: Gabapentin 300 MG CAP PO SCH (20:36)
[2019-01-16] MEDS ORDERED: Lidocaine Patch Removal 1 EACH TOP SCH ×2 (01:00→09:00)
[2019-01-16] MEDS: HYDROcodone/Acetaminophen 10/325 mg Tablet PO PRN (02:40)
[2019-01-16 05:24] LABS: #Lymphocytes 1.4 thou/uL (1.20-3.40); #Monocytes 0.3 thou/uL (0.11-0.59); #Neutrophils 1.9 thou/uL (1.40-6.50); %Basophils 0.7 % (0.0-1.0); %Eosinophils 0.5 % (0.0-10.0); %Lymphocytes 37.9 % (21.0-51.0); %Monocytes 8.8 % (0.0-10.0); %Neutrophils 52.2 % (42.0-75.0); Hemoglobin 9.2 g/dL (14.0-18.0); Mean Corpuscular HGB CONC 32.9 g/dL (32.0-36.0); Mean Corpuscular Hemoglobin 29.3 pg (27.0-31.0); Mean Corpuscular Volume 89.1 fL (78.0-98.0); Mean Platelet Volume 8.6 fL (7.4-10.4); Platelet Count 112 thou/uL (130-400); RBC Distribution Width 16.1 % (11.5-14.5); Red Blood Cell (RBC) Count 3.15 mill/uL (4.70-6.10); White Blood Cell (WBC) Count 3.7 thou/uL (4.8-10.8)
[2019-01-16 05:42] LABS: Anion Gap 10 mmol/L (10-20); BUN (Urea Nitrogen) 5 mg/dL (8.9-20.6); Calc. Creatinine Clearance 200 mL/min (70-130); Carbon Dioxide 24 mmol/L (22-29); Chloride 106 mmol/L (98-107); Estimated GFR-MDRD Greater than 90; Glucose 92 mg/dL (70-105); Potassium 3.7 mmol/L (3.5-5.1); Sodium 136 mmol/L (136-145)
[2019-01-16] MEDS: Vancomycin HCl 25 MG/ML Oral PO SCH ×4 (08:24→20:15)
[2019-01-16] MEDS: Famotidine/PF 20 mg/2ml Vial SLOW IVP SCH ×2 (08:25→20:15)
[2019-01-16] MEDS: Gabapentin 300 MG CAP PO SCH ×2 (08:25→20:15)
[2019-01-16] MEDS: Enoxaparin Sodium 40 MG/0.4 ML SYRINGE SC SCH (08:25)
[2019-01-16] MEDS: Morphine ER 30 MG TAB PO SCH ×2 (08:25→20:14)
[2019-01-16] MEDS: DULoxetine 30 MG CAP PO SCH (08:26)
[2019-01-16] MEDS: Saccharomyces boulardii 250 MG CAP PO SCH ×2 (08:26→20:14)
[2019-01-16] MEDS: Morphine 4 MG/ML VIAL SLOW IVP PRN ×2 (08:47→19:31)
[2019-01-16] MEDS: Meloxicam 15 MG TAB PO SCH (10:37)
[2019-01-16] MEDS: Sodium Chloride 0.9% 1,000 ML IV SCH ×2 (12:39→19:32)
--- NOTE | 2019-01-16 13:16 | PRG ---
DATE OF SERVICE: 01/16/2019 SUBJECTIVE: The patient is seen and examined at the bedside. He is doing significantly better. He had just one bowel movement. He tolerated his regular diet without any problems. His abdominal pain improved very much. OBJECTIVE: VITAL SIGNS: Blood pressure is 138/85, pulse is 79, temperature is 97.4, respirations 16, O2 saturation is 100% on room air. HEENT: His head is atraumatic and normocephalic. Eyes are PERRLA. Sclerae nonicteric. Conjunctivae palish. Oral mucosa is moist. NECK: Supple. LUNGS: Clear. HEART: S1, S2 normal. ABDOMEN: Soft. Mildly tender in diffuse fashion on deeper palpation. No guarding. No masses. EXTREMITIES: No clubbing, cyanosis, or edema. NEUROLOGICAL: He is alert and oriented x4. There is no any motor or sensory deficits present. Cranial nerves are intact. LABORATORY DATA: Labs shows white count of 3.7, hemoglobin 9.2, hematocrit 28.1, and platelet count 112,000. Electrolytes within normal limits. BUN 5, creatinine 0.6. Rest of chemistry within normal limits. Glycemia is ranging from 99 to 133. Microbiology showed positive test for Clostridium difficile toxins by PCR. Toxigenic C difficile was detected. Campylobacter antigen was negative, shiga toxin. IMPRESSION: 1. Clostridium difficile colitis, improved with oral vancomycin. 2. Hyponatremia secondary to vomiting, improved with IV fluid resuscitation. 3. Stage IV adenocarcinoma of the rectum with liver metastasis. 4. Abdominal pain related to number #3, improved. 5. Diabetes mellitus type 2, controlled. 6. Mild neutropenia, improved. PLAN: Plan is to continue his vancomycin orally. Continue p.r.n. morphine and long-acting ER morphine 30 mg twice a day and continue IV fluids. He will go home most likely tomorrow on vancomycin orally for additional 12 days. Job ID: [id number]
[2019-01-17 09:12] VITALS: BP 112/79; TEMP 98.1
[2019-01-17] MEDS: Famotidine/PF 20 mg/2ml Vial SLOW IVP SCH (09:35)
[2019-01-17] MEDS: Meloxicam 15 MG TAB PO SCH (09:36)
[2019-01-17] MEDS: Saccharomyces boulardii 250 MG CAP PO SCH (09:36)
[2019-01-17] MEDS: Gabapentin 300 MG CAP PO SCH (09:37)
[2019-01-17] MEDS: Enoxaparin Sodium 40 MG/0.4 ML SYRINGE SC SCH (09:37)
[2019-01-17] MEDS: DULoxetine 30 MG CAP PO SCH (09:38)
[2019-01-17] MEDS: Vancomycin HCl 25 MG/ML Oral PO SCH ×3 (09:39→16:30)
[2019-01-17] MEDS: Morphine ER 30 MG TAB PO SCH (09:40)
[2019-01-17] MEDS: Sodium Chloride 0.9% 1,000 ML IV SCH (09:41)
--- NOTE | 2019-01-17 11:19 | DIS ---
DATE OF ADMISSION: 01/14/2019 DATE OF DISCHARGE: 01/17/2019 FINAL DIAGNOSES: 1. Clostridium difficile colitis. 2. Hyponatremia secondary to vomiting, resolved. 3. Stage IV adenocarcinoma of the rectum with liver metastasis. 4. Diabetes mellitus, type 2, controlled. HOSPITAL COURSE: The patient was a 28-year-old male, who presented to the emergency room with nausea, diarrhea, and abdominal pain. Apparently, he had chemotherapy a few days prior to this hospitalization. He denied any fever or chills. He is a well known case of adenocarcinoma of the rectum with metastasis to the liver. He had multiple watery bowel movements. He was evaluated in the emergency room. His white count was down to 2.8, hemoglobin 10.6, hematocrit 34.1, and platelet count 161,000. Sodium was down to 130, potassium 4.8, chloride 99, CO2 of 26, BUN 14, and creatinine 0.78. His urine showed 30 of proteins, 100 of glucose, small amount of bilirubin, and 4 to 6 hyaline casts. EKG showed sinus tachycardia, no ischemic changes. X-ray of the abdomen did not show any specific findings. The patient got admitted to the hospital for pain management, IV fluids. Morphine was used IV. He had stool testing done, which showed positive test for Clostridium difficile toxins and antigen. His Campylobacter antigen came back negative. Shiga toxin A and B negative. Stool culture showed just regular chi. Influenza type A and B came back negative. Started on liquid vancomycin orally 4 doses a day. He improved quickly. His abdomen is still somewhat tender but not painful like it was before. He did not have bowel movement today. He is doing well. His blood pressure is 112/79, pulse is 95, temperature is 98.1, respiratory rate is 18, and O2 saturation is 100% on room air. He did not have any fever during this hospitalization. He is seen and examined before his discharge. He is discharged home. DIET: He is going to stay regular diet. ACTIVITIES: As tolerated. MEDICATIONS: At the time of discharge; 1. Vancomycin 125 mg liquid 5 mL 4 times a day for the next 12 days. 2. Saccharomyces boulardii, which is Florastor 250 mg twice a day. 3. Morphine sulfate ER 30 mg twice a day. 4. Docusate. 5. Colace 100 mg twice a day. 6. Gabapentin 300 mg twice a day. 7. Meloxicam 50 mg once a day. 8. Hydrocodone bitartrate 10/325 mg q.6 hours p.r.n. as needed. 9. Lidoderm patch 5% one a day. 10. Insulin aspart 10 units subcu twice a day. 11. Duloxetine. 12. Cymbalta 30 mg once a day. FOLLOWUP: He is going to follow up with his primary care physician in 1 week and he will do regular followups with his oncologist locally. Job ID: [id number]
[2019-01-17] MEDS: Morphine 4 MG/ML VIAL SLOW IVP PRN (12:49)
[2019-01-17] MEDS ORDERED: Famotidine 20 MG TAB PO SCH (21:00)
== END 2019-01-17 17:00 | disposition home or self-care (01) | DRG 372 ==
LOC: ERS 07:50 → ONC 11:18
PROVIDERS: ADMIT Internal Medicine; ATTEND Internal Medicine
DX: A04.72 Enterocolitis due to Clostridium difficile, not specified as recurrent (principal); E87.1 Hypo-osmolality and hyponatremia; C20 Malignant neoplasm of rectum; C78.7 Secondary malignant neoplasm of liver and intrahepatic bile duct; K52.9 Noninfective gastroenteritis and colitis, unspecified; E11.9 Type 2 diabetes mellitus without complications; D70.9 Neutropenia, unspecified
CPT/HCPCS: 36415; 36416; 74022; 80048; 80053; 81003; 81015; 83605; 83630; 83690; 85025; 87045; 87046; 87324; 87449; 87493; 87804; 87899; 93005; 96361; 96374; 96375; J1170; J1650; J2270; J2405; S0028

== ENCOUNTER 2019-01-23 08:15 | Day surgery (SDC) | payer OTHER ==
[~2019-01-23 08:15] MED LIST changes: -Dexamethasone 10 MG, Ondansetron 2MG/ML MDV 15 MG in Sodium Chloride 0.9% 50 ML IVPB SCH
[2019-01-23 08:52] VITALS: BP 137/84; TEMP 98.5
[2019-01-23] MEDS ORDERED: Sodium Chloride 0.9% 20 ML ONE (08:57)
== END 2019-01-23 14:51 | disposition home or self-care (01) ==
LOC: ONC/OP 08:15
PROVIDERS: ATTEND Internal Medicine Hematology & Oncology
DX: Z51.11 Encounter for antineoplastic chemotherapy (principal); C20 Malignant neoplasm of rectum; G89.3 Neoplasm related pain (acute) (chronic); Z88.0 Allergy status to penicillin
CPT/HCPCS: 96367; 96375; 96413; 96415; 96417; J0640; J1100; J2405; J7050; J7070; J9035; J9190; J9263

== ENCOUNTER 2019-01-24 05:10 | Emergency (ER) | payer OTHER ==
[2019-01-24] MEDS ORDERED: Morphine 4 MG/ML VIAL ONE (06:27)
[2019-01-24] MEDS ORDERED: Ondansetron PF 4 MG/2 ML Vial ONE (06:27)
[2019-01-24 06:42] LABS: Hemoglobin 11.8 g/dL (14.0-18.0); Mean Corpuscular HGB CONC 31.5 g/dL (32.0-36.0); Mean Corpuscular Hemoglobin 28.2 pg (27.0-31.0); Mean Corpuscular Volume 89.5 fL (78.0-98.0); Mean Platelet Volume 8.7 fL (7.4-10.4); Platelet Count 212 thou/uL (130-400); RBC Distribution Width 17.7 % (11.5-14.5); Red Blood Cell (RBC) Count 4.18 mill/uL (4.70-6.10); White Blood Cell (WBC) Count 3.5 thou/uL (4.8-10.8)
[2019-01-24 06:59] LABS: ALT (SGPT) 33 U/L (8-55); AST (SGOT) 76 U/L (5-34); Albumin 3.4 g/dL (3.5-5.0); Alkaline Phosphatase 955 U/L (40-150); Anion Gap 14 mmol/L (10-20); BUN (Urea Nitrogen) 16 mg/dL (8.9-20.6); Bilirubin, Total 2.2 mg/dL (0.2-1.2); Calc. Creatinine Clearance 0 mL/min (70-130); Calcium 9.1 mg/dL (7.8-10.44); Carbon Dioxide 24 mmol/L (22-29); Chloride 102 mmol/L (98-107); Estimated GFR-MDRD Greater than 90; Globulin 3.5 g/dL (2.4-3.5); Glucose 184 mg/dL (70-105); Potassium 4.3 mmol/L (3.5-5.1); Protein, Total 6.9 g/dL (6.0-8.3); Sodium 136 mmol/L (136-145)
[2019-01-24 07:14] LABS: Band 10 % (5-11); Hypochromia SLIGHT = 6-15 cells (100X) (0-5/hpf); Lymphocytes 10 % (21-51); MDiff Complete? YES; Monocytes 18 % (0-10); Neutrophil 62 % (42-75); Platelet Morphology Comment Appears Adequate; Polychromasia SLIGHT = 2-3 cells (100X) (0-2/hpf)
[2019-01-24] MEDS ORDERED: Pantoprazole 40 MG VIAL ONE (08:39)
[2019-01-24] MEDS ORDERED: Ketorolac Tromethamine 30 MG/ML VIAL ONE (08:39)
[2019-01-24 09:17] LABS: Bilirubin Small (Negative); Blood, Urine Negative (Negative); Clarity CLEAR (Clear); Glucose, Urine (Dipstick) >=1000 mg/dL (Negative); Leukocyte Negative (Negative); Nitrite Negative (Negative); Protein, Urine (Dipstick) 100 mg/dL (Neg-Trace); Specific Gravity, Urine 1.027 (1.002-1.036); Urobilinogen 0.2 mg/dL (0.2-1.0)
[2019-01-24 09:20] LABS: Bacteria/HPF None Seen HPF (None Seen); Pathc Cast-AUWi Flag 2.44 (0-2.49); RBC/HPF None Seen HPF (0-3); Squamous Epithelial 0-3 HPF (0-3); WBC/HPF 0-3 HPF (0-3)
[2019-01-24 09:46] LABS: Hyaline Casts/LPF 0-3 HYALINE CAST LPF (0-3 Hyaline); Renal Epithelial 0-3 HPF (0-3); Transitional Epithelial 0-3 HPF (0-3)
== END 2019-01-24 08:54 | disposition home or self-care (01) ==
LOC: ERS 05:10
DX: R10.33 Periumbilical pain (principal); E10.9 Type 1 diabetes mellitus without complications
CPT/HCPCS: 80053; 81003; 81015; 85025; 87086; 93005; 96374; 96375; C9113; J1885; J2270; J2405

== ENCOUNTER 2019-01-25 13:39 | Emergency (ER) | payer OTHER ==
--- NOTE | 2019-01-25 15:00 | CT ---
CT OF THE BRAIN WITHOUT CONTRAST: Date: 01/25/19 COMPARISON: 07/30/18. HISTORY: Syncope. Patient has colon cancer and recently received 48 hours of chemotherapy. TECHNIQUE: Multiple contiguous axial images were obtained in a CT of the brain without contrast. FINDINGS: The brain is normal in morphology and attenuation without focal lesions or confluent areas of infarct ion. There is no evidence of hydrocephalus, intracranial hemorrhage, or extra-axial fluid collection. The calvarium and overlying soft tissues are unremarkable. The visualized paranasal sinuses and masto id air cells are well aerated. IMPRESSION: No evidence of acute intracranial abnormality. POS: TPC
[2019-01-25] MEDS ORDERED: Morphine 4 MG/ML VIAL ONE (15:03)
[2019-01-25] MEDS ORDERED: Ondansetron PF 4 MG/2 ML Vial ONE (15:04)
[2019-01-25 15:12] LABS: #Lymphocytes 0.4 thou/uL (1.20-3.40); #Monocytes 0.2 thou/uL (0.11-0.59); #Neutrophils 0.9 thou/uL (1.40-6.50); %Basophils 1.1 % (0.0-1.0); %Eosinophils 0.1 % (0.0-10.0); %Lymphocytes 27.1 % (21.0-51.0); %Monocytes 10.8 % (0.0-10.0); %Neutrophils 60.9 % (42.0-75.0); Mean Corpuscular HGB CONC 31.6 g/dL (32.0-36.0); Mean Corpuscular Hemoglobin 28.8 pg (27.0-31.0); Mean Corpuscular Volume 91.2 fL (78.0-98.0); Mean Platelet Volume 8.6 fL (7.4-10.4); Platelet Count 160 thou/uL (130-400); RBC Distribution Width 17.4 % (11.5-14.5); Red Blood Cell (RBC) Count 3.48 mill/uL (4.70-6.10); White Blood Cell (WBC) Count 1.5 thou/uL (4.8-10.8)
--- NOTE | 2019-01-25 15:17 | CT ---
FEXAM:CT angiogram of chest performed with intravenous contrast enhancement with 3-D reconstructions HISTORY: Patient finishing chemotherapy treatment for colon cancer with metastatic disease to the [facility] er. Walking into car and had a syncopal episode. COMPARISON: CT abdomen performed 12/28/2018. FINDINGS:There are some patchy parenchymal changes within the posterior segment of the right upper lo be consistent with atelectasis versus early infiltrate. No pleural effusions or pulmonary nodules. No significant mediastinal or hilar adenopathy. The thoracic aorta is normal in caliber. There is good pulmonary artery opacification and no CT evide nce for pulmonary embolus. Liver metastases are again demonstrated. IMPRESSION: 1. Possible early right upper lobe infiltrate. 2. No CT evidence for pulmonary embolus.
[2019-01-25 15:33] LABS: ALT (SGPT) 32 U/L (8-55); AST (SGOT) 69 U/L (5-34); Albumin 2.7 g/dL (3.5-5.0); Alkaline Phosphatase 735 U/L (40-150); Anion Gap 10 mmol/L (10-20); BUN (Urea Nitrogen) 21 mg/dL (8.9-20.6); Bilirubin, Total 1.6 mg/dL (0.2-1.2); Calc. Creatinine Clearance 0 mL/min (70-130); Calcium 8.1 mg/dL (7.8-10.44); Carbon Dioxide 24 mmol/L (22-29); Chloride 105 mmol/L (98-107); Estimated GFR-MDRD Greater than 90; Globulin 2.5 g/dL (2.4-3.5); Glucose 135 mg/dL (70-105); Potassium 4.3 mmol/L (3.5-5.1); Protein, Total 5.2 g/dL (6.0-8.3); Sodium 135 mmol/L (136-145)
== END 2019-01-25 16:00 | disposition home or self-care (01) ==
LOC: ERS 13:39
DX: R55 Syncope and collapse (principal); E10.9 Type 1 diabetes mellitus without complications
CPT/HCPCS: 70450; 71275; 80053; 85025; 93005; 96374; 96375; J2270; J2405

== ENCOUNTER 2019-01-26 21:42 | Emergency (ER) | payer OTHER ==
[2019-01-26] MEDS ORDERED: Morphine 4 MG/ML VIAL ONE ×2 (22:09→23:02)
[2019-01-26] MEDS ORDERED: Ondansetron PF 4 MG/2 ML Vial ONE (22:09)
[2019-01-26 22:45] LABS: Hemoglobin 10.2 g/dL (14.0-18.0); Mean Corpuscular Hemoglobin 27.5 pg (27.0-31.0); Mean Corpuscular Volume 88.5 fL (78.0-98.0); Mean Platelet Volume 6.3 fL (7.4-10.4); Platelet Count 146 thou/uL (130-400); RBC Distribution Width 17.7 % (11.5-14.5); Red Blood Cell (RBC) Count 3.73 mill/uL (4.70-6.10); White Blood Cell (WBC) Count 2.7 thou/uL (4.8-10.8)
[2019-01-26 22:48] LABS: Anisocytosis SLIGHT = 6-15 cells (100X) (0-5/hpf); Band 1 % (5-11); Hypochromia SLIGHT = 6-15 cells (100X) (0-5/hpf); Lymphocytes 44 % (21-51); MDiff Complete? YES; Monocytes 5 % (0-10); Neutrophil 50 % (42-75)
[2019-01-26 22:54] LABS: Carbon Dioxide 19 mmol/L (22-29); Chloride 103 mmol/L (98-107); Potassium 4.8 mmol/L (3.5-5.1); Sodium 132 mmol/L (136-145)
[2019-01-26 22:55] LABS: Albumin 2.8 g/dL (3.5-5.0); Alkaline Phosphatase 780 U/L (40-150); Anion Gap 15 mmol/L (10-20); BUN (Urea Nitrogen) 16 mg/dL (8.9-20.6); Bilirubin, Total 1.8 mg/dL (0.2-1.2); Calc. Creatinine Clearance 0 mL/min (70-130); Estimated GFR-MDRD Greater than 90; Globulin 3.5 g/dL (2.4-3.5); Glucose 128 mg/dL (70-105); Protein, Total 6.3 g/dL (6.0-8.3)
[2019-01-26 22:56] LABS: ALT (SGPT) 42 U/L (8-55); AST (SGOT) 119 U/L (5-34); Lipase Less than 4 U/L (8-78)
== END 2019-01-27 00:25 | disposition home or self-care (01) ==
LOC: SCSER 21:42
DX: R10.30 Lower abdominal pain, unspecified (principal); E10.9 Type 1 diabetes mellitus without complications; Z79.899 Other long term (current) drug therapy; Z79.891 Long term (current) use of opiate analgesic; Z79.4 Long term (current) use of insulin
CPT/HCPCS: 80053; 83690; 85025; 96374; 96375; 96376; J2270; J2405

== ENCOUNTER 2019-01-27 19:06 | Observation (INO) | payer OTHER ==
[2019-01-27] MEDS ORDERED: Loperamide HCl 2 MG CAP ONE (19:57)
[2019-01-27 20:21] LABS: #Neutrophils 1.2 thou/uL (1.40-6.50); %Basophils 0.8 % (0.0-1.0); %Eosinophils 1.7 % (0.0-10.0); %Lymphocytes 44.6 % (21.0-51.0); %Monocytes 0.6 % (0.0-10.0); %Neutrophils 52.3 % (42.0-75.0); Hemoglobin 11.2 g/dL (14.0-18.0); Mean Corpuscular HGB CONC 31.5 g/dL (32.0-36.0); Mean Corpuscular Hemoglobin 28.6 pg (27.0-31.0); Mean Corpuscular Volume 90.9 fL (78.0-98.0); Mean Platelet Volume 8.9 fL (7.4-10.4); Platelet Count 151 thou/uL (130-400); Red Blood Cell (RBC) Count 3.91 mill/uL (4.70-6.10); White Blood Cell (WBC) Count 2.3 thou/uL (4.8-10.8)
[2019-01-27 20:48] LABS: ALT (SGPT) 34 U/L (8-55); AST (SGOT) 73 U/L (5-34); Alkaline Phosphatase 706 U/L (40-150); Anion Gap 13 mmol/L (10-20); BUN (Urea Nitrogen) 16 mg/dL (8.9-20.6); Bilirubin, Total 2.7 mg/dL (0.2-1.2); Calc. Creatinine Clearance 0 mL/min (70-130); Calcium 8.5 mg/dL (7.8-10.44); Carbon Dioxide 22 mmol/L (22-29); Chloride 99 mmol/L (98-107); Estimated GFR-MDRD Greater than 90; Globulin 3.1 g/dL (2.4-3.5); Glucose 122 mg/dL (70-105); Potassium 4.1 mmol/L (3.5-5.1); Protein, Total 6.1 g/dL (6.0-8.3); Sodium 130 mmol/L (136-145)
[2019-01-27] MEDS ORDERED: Morphine 4 MG/ML VIAL ONE (22:43)
[2019-01-27] MEDS ORDERED: Loperamide HCl 2 MG CAP PO PRN ×2 (23:46)
[2019-01-27] MEDS ORDERED: Lidocaine 5% Patch TD PRN (23:46)
[2019-01-27] MEDS ORDERED: Ondansetron ODT 4 MG TAB PO PRN (23:46)
[2019-01-27] MEDS ORDERED: Dextrose 5% in Water 1,000 ML IV PRN (23:46)
[2019-01-27] MEDS ORDERED: Acetaminophen 500 MG TAB PO PRN (23:46)
[2019-01-27] MEDS ORDERED: HumaLOG 300 UNITS/3 ML VIAL SC PRN ×2 (23:46)
[2019-01-27] MEDS ORDERED: Diphenoxylate HCl/Atropine Tablet PO PRN (23:46)
[2019-01-27] MEDS ORDERED: Ondansetron PF 4 MG/2 ML Vial IVP PRN (23:46)
[2019-01-27] MEDS ORDERED: Dextrose 50% Abboject 50 ML SYRINGE SLOW IVP PRN (23:46)
[2019-01-28] MEDS ORDERED: Morphine ER 30 MG TAB PO SCH ×2 (01:00→09:00)
[2019-01-28] MEDS ORDERED: Gabapentin 300 MG CAP PO SCH ×2 (01:00→09:00)
[2019-01-28] MEDS: HYDROcodone/Acetaminophen 10/325 mg Tablet PO PRN ×2 (01:31→08:34)
[2019-01-28] MEDS ORDERED: Temazepam 15 MG CAP PO PRN (01:56)
[2019-01-28] MEDS: Sodium Chloride 0.9% 1,000 ML IV SCH ×2 (02:07→11:53)
[2019-01-28] MEDS ORDERED: Morphine 4 MG/ML VIAL SLOW IVP PRN (02:25)
[2019-01-28 03:27] VITALS: BMI 29.4
[2019-01-28 05:15] LABS: Band 3 % (5-11); Eosinophils 2 % (0-10); Hemoglobin 9.9 g/dL (14.0-18.0); Lymphocytes 47 % (21-51); MDiff Complete? YES; Mean Corpuscular HGB CONC 32.3 g/dL (32.0-36.0); Mean Corpuscular Hemoglobin 29.3 pg (27.0-31.0); Mean Corpuscular Volume 90.7 fL (78.0-98.0); Monocytes 9 % (0-10); Neutrophil 37 % (42-75); Nucleated RBC 1 % (0); Platelet Count 119 thou/uL (130-400); Platelet Morphology Comment Appears Decreased; RBC Distribution Width 16.8 % (11.5-14.5); RBC Morphology Normal; Reactive Lymphocytes 2 % (0-10); Red Blood Cell (RBC) Count 3.37 mill/uL (4.70-6.10); White Blood Cell (WBC) Count 1.8 thou/uL (4.8-10.8)
[2019-01-28 05:24] LABS: ALT (SGPT) 30 U/L (8-55); AST (SGOT) 60 U/L (5-34); Albumin 2.8 g/dL (3.5-5.0); Alkaline Phosphatase 609 U/L (40-150); Anion Gap 10 mmol/L (10-20); BUN (Urea Nitrogen) 14 mg/dL (8.9-20.6); Bilirubin, Total 2.4 mg/dL (0.2-1.2); Calc. Creatinine Clearance 202 mL/min (70-130); Calcium 8.1 mg/dL (7.8-10.44); Carbon Dioxide 25 mmol/L (22-29); Chloride 101 mmol/L (98-107); Estimated GFR-MDRD Greater than 90; Globulin 2.9 g/dL (2.4-3.5); Glucose 134 mg/dL (70-105); Potassium 4.2 mmol/L (3.5-5.1); Protein, Total 5.7 g/dL (6.0-8.3); Sodium 132 mmol/L (136-145)
[2019-01-28] MEDS ORDERED: Saccharomyces boulardii 250 MG CAP PO SCH (09:00)
[2019-01-28] MEDS ORDERED: HumaLOG 300 UNITS/3 ML VIAL SC SCH (09:00)
[2019-01-28] MEDS ORDERED: Famotidine/PF 20 mg/2ml Vial SLOW IVP SCH (09:00)
[2019-01-28 16:21] VITALS: BP 108/76; TEMP 97.7
--- NOTE | 2019-01-29 07:44 | HP ---
PRIMARY CARE PROVIDER: [facility] in [place], [place]. PRIMARY ONCOLOGIST: Kyle Trejo MD. CHIEF COMPLAINT: Diarrhea. HISTORY OF PRESENT ILLNESS: This is a 28-year-old male who presents to 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 The patient states he underwent his regular chemotherapy sessions and usually has diarrhea for several days after his treatment. The patient became concerned when the diarrhea persisted; however, did not take any of his home antidiarrheal medications that had been previously prescribed. The patient was recently diagnosed with C. difficile colitis, taking approximate 2-week course of oral vancomycin, completing the course of antibiotics prior to this evaluation. The patient denied any specific blood in the stool, but does admit to decreased oral intake, mainly taking fluids on the weeks he has his chemotherapy. The patient admits to some abdominal cramping, but typical for his weeks receiving chemotherapy. The patient has been on chemotherapy for approximately 2 years after diagnosis of stage IV rectal carcinoma, on his current chemotherapy regimen about one and half years. In the emergency room, the patient underwent general evaluation including C. difficile antigen and toxin screening showing negative findings. The patient was noted with mild hyponatremia, which is chronic. The patient was also noted with pancytopenia and leukopenia in the context of ongoing chemotherapy. The patient received IV morphine sulfate in addition to Imodium and intravenous normal saline x1 L. PAST MEDICAL HISTORY: 1. Stage IV rectal carcinoma with liver metastasis. 2. Recurrent diarrhea due to chemotherapy. 3. History of C. difficile colitis status post vancomycin therapy. PAST SURGICAL HISTORY: 1. Status post MediPort placement. 2. Status post appendectomy. CURRENT MEDICATIONS: 1. Cymbalta 30 mg p.o. daily. 2. [place] 10/325 mg 1 tablet p.o. q.6 hours p.r.n. pain. 3. NovoLog insulin 10 units subcutaneously b.i.d. 4. Lidocaine patch transdermally daily. 5. Morphine extended release 30 mg p.o. b.i.d. 6. Colace p.r.n. 7. Gabapentin 300 mg p.o. b.i.d. 8. Meloxicam 15 mg p.o. daily. 9. Florastor 250 mg p.o. b.i.d. ALLERGIES: TO AMOXICILLIN. FAMILY HISTORY: Grandfather with colon cancer dying at the age of 75. His mother had congestive heart failure and myocardial infarction and succumbed to her illness at 56 years of age. SOCIAL HISTORY: The patient resides in [facility]. No current alcohol, tobacco, or illicit drug use. Sister is power of patent attorney. REVIEW OF SYSTEMS: CONSTITUTIONAL: Negative for weight loss or gain, ability to conduct usual activities. SKIN: Negative for rash, itching. EYES: Negative for double vision, pain. ENT/MOUTH: Negative for nose bleeding, neck stiffness, pain, tenderness. CARDIOVASCULAR: Negative for palpitations, dyspnea on exertion, orthopnea. RESPIRATORY: Negative for shortness of breath, wheezing, cough, hemoptysis, fever or night sweats. GASTROINTESTINAL: Negative for poor appetite, abdominal pain, heartburn, nausea, vomiting, constipation, or diarrhea. GENITOURINARY: Negative for urgency, frequency, dysuria, nocturia. MUSCULOSKELETAL: Negative for pain, swelling. NEUROLOGIC/PSYCHIATRIC: Negative for anxiety, depression. ALLERGY/IMMUNOLOGIC: Negative for skin rash, bleeding tendency. Otherwise negative except as stated per HPI. PHYSICAL EXAMINATION: VITAL SIGNS: On admission, blood pressure 112/86, pulse 105, respiratory rate 16, temperature 98.4 degrees Fahrenheit, O2 saturation is 100% on room air. GENERAL APPEARANCE: This is a 28-year-old male, alert and oriented x3, pleasant, smiling, in no acute distress. HEENT: Pupils are equal, round, reactive to light and accommodation. Extraocular muscles are intact. No scleral icterus. No conjunctival injection. Nares patent. OP is clear. Teeth in good repair. NECK: Supple. No cervical adenopathy. No thyromegaly. No carotid bruits. No JVD appreciated. Cervical spine with full active and passive range of motion. No meningeal signs noted. CHEST: Lungs are clear to auscultation bilaterally. CARDIOVASCULAR: S1, S2 without noted murmur, rub, or gallop. ABDOMEN: Rounded, soft, nontender, and nondistended. Bowel sounds are positive in all 4 quadrants. No palpable mass. No rebound or guarding noted. EXTREMITIES: Warm and dry with fair turgor. No clubbing, cyanosis, or asymmetric edema appreciated. Pulses are palpable distally at the dorsalis pedis, posterior tibial, and popliteal arteries bilaterally. Capillary refill less than 2 seconds. NEUROLOGIC: Cranial nerves 2 through 12 are grossly intact. No focal or lateralizing signs appreciated. PERTINENT LABORATORY AND X-RAY FINDINGS: Sodium 130, potassium 4.1, chloride 99, CO2 of 22, BUN 16, creatinine 0.69, estimated GFR greater than 90, glucose 122, calcium 8.5, total bilirubin 2.7, AST 73, ALT 34, alkaline phosphatase 706, albumin 3.0. CBC showed a white blood cell count of 2.3, hemoglobin 11, hematocrit 36, platelet count 151 with normal differential. C. difficile antigen and toxin dated 01/27/2019, negative. ASSESSMENT AND PLAN: 1. Chemotherapy-induced diarrhea. The patient will be observed on the medical floor. We will continue IV fluids with normal saline at 100 mL/h. We will initiate Imodium and Lomotil as needed for diarrhea. No current evidence to suggest acute infectious etiology. Continue supportive management, fluid resuscitation, and monitor clinical response. 2. Hyponatremia, chronic, multifactorial including poor oral intake in conjunction with ongoing diarrhea. We will continue IV fluids with normal saline and repeat sodium level in the a.m. 3. Pancytopenia secondary to chemotherapy. We will continue neutropenic and contact precautions as the patient is receiving ongoing chemotherapy. No current evidence to suggest underlying acute infectious process. 4. Stage IV rectal carcinoma with liver metastasis. We will continue supportive management. The patient to follow up on an outpatient basis with Medical Oncology Service. 5. Diabetes mellitus type 2. Insulin sliding scale for reflexive coverage. ADA diet. 6. Prophylaxis. Sequential compression devices while in bed. Pepcid 20 mg p.o. b.i.d. 7. Code status is full. Surrogate medical decision maker is the patient's sister. Job ID: [id number]
== END 2019-01-28 18:11 | disposition home or self-care (01) ==
LOC: ERS 19:06 → SURG B 01-28 00:17
PROVIDERS: ADMIT Family Medicine; ATTEND Family Medicine
DX: K52.1 Toxic gastroenteritis and colitis (principal); T45.1X5A Adverse effect of antineoplastic and immunosuppressive drugs, initial encounter; C20 Malignant neoplasm of rectum; C78.7 Secondary malignant neoplasm of liver and intrahepatic bile duct; E87.1 Hypo-osmolality and hyponatremia; D61.810 Antineoplastic chemotherapy induced pancytopenia; E11.9 Type 2 diabetes mellitus without complications; Z79.1 Long term (current) use of non-steroidal anti-inflammatories (NSAID); Z79.4 Long term (current) use of insulin; Z79.899 Other long term (current) drug therapy; Z88.0 Allergy status to penicillin
CPT/HCPCS: 36415; 36416; 80053; 85007; 85025; 85027; 87324; 87449; 96361; 96374; 96375; 96376; G0378; J2270; S0028

== ENCOUNTER 2019-02-02 07:27 | Emergency (ER) | payer OTHER ==
[2019-02-02] MEDS ORDERED: HYDROmorphone 0.5 MG/0.5 ML SYRINGE ONE ×3 (07:35→11:36)
[2019-02-02 09:11] LABS: ALT (SGPT) 27 U/L (8-55); AST (SGOT) 58 U/L (5-34); Albumin 2.6 g/dL (3.5-5.0); Alkaline Phosphatase 1019 U/L (40-150); Anion Gap 16 mmol/L (10-20); BUN (Urea Nitrogen) 10 mg/dL (8.9-20.6); Bilirubin, Total 1.8 mg/dL (0.2-1.2); Calc. Creatinine Clearance 0 mL/min (70-130); Calcium 7.7 mg/dL (7.8-10.44); Carbon Dioxide 14 mmol/L (22-29); Chloride 104 mmol/L (98-107); Estimated GFR-MDRD Greater than 90; Globulin 2.9 g/dL (2.4-3.5); Glucose 144 mg/dL (70-105); Lipase Less than 4 U/L (8-78); Protein, Total 5.5 g/dL (6.0-8.3); Sodium 130 mmol/L (136-145)
[2019-02-02] MEDS ORDERED: Ondansetron PF 4 MG/2 ML Vial ONE (09:18)
[2019-02-02 10:03] LABS: #Lymphocytes 0.7 thou/uL (1.20-3.40); #Monocytes 0.2 thou/uL (0.11-0.59); #Neutrophils 2.9 thou/uL (1.40-6.50); %Basophils 0.3 % (0.0-1.0); %Eosinophils 0.3 % (0.0-10.0); %Lymphocytes 17.3 % (21.0-51.0); %Monocytes 5.4 % (0.0-10.0); %Neutrophils 76.6 % (42.0-75.0); Hemoglobin 11.6 g/dL (14.0-18.0); Mean Corpuscular HGB CONC 31.8 g/dL (32.0-36.0); Mean Corpuscular Hemoglobin 28.1 pg (27.0-31.0); Mean Corpuscular Volume 88.3 fL (78.0-98.0); Mean Platelet Volume 9.6 fL (7.4-10.4); Platelet Count 142 thou/uL (130-400); RBC Distribution Width 17.8 % (11.5-14.5); Red Blood Cell (RBC) Count 4.11 mill/uL (4.70-6.10); White Blood Cell (WBC) Count 3.8 thou/uL (4.8-10.8)
== END 2019-02-02 12:15 | disposition home or self-care (01) ==
LOC: ERS 07:27
DX: G89.3 Neoplasm related pain (acute) (chronic) (principal); E10.9 Type 1 diabetes mellitus without complications; Z79.891 Long term (current) use of opiate analgesic; Z79.899 Other long term (current) drug therapy
CPT/HCPCS: 36415; 80053; 83690; 85025; J1170; J2405

== ENCOUNTER 2019-02-04 00:45 | Inpatient (IN) | payer OTHER ==
[2019-02-04 01:46] LABS: ALT (SGPT) 84 U/L (8-55); AST (SGOT) 267 U/L (5-34); Albumin 2.5 g/dL (3.5-5.0); Alkaline Phosphatase 529 U/L (40-150); Anion Gap 16 mmol/L (10-20); BUN (Urea Nitrogen) 32 mg/dL (8.9-20.6); Bilirubin, Total 3.5 mg/dL (0.2-1.2); Calc. Creatinine Clearance 0 mL/min (70-130); Calcium 7.7 mg/dL (7.8-10.44); Carbon Dioxide 19 mmol/L (22-29); Chloride 102 mmol/L (98-107); Estimated GFR-MDRD 63; Globulin 2.6 g/dL (2.4-3.5); Glucose 98 mg/dL (70-105); Potassium 3.2 mmol/L (3.5-5.1); Protein, Total 5.1 g/dL (6.0-8.3); Sodium 134 mmol/L (136-145)
[2019-02-04 01:54] LABS: Anisocytosis SLIGHT = 6-15 cells (100X) (0-5/hpf); Band 7 % (5-11); Hemoglobin 9.8 g/dL (14.0-18.0); Lymphocytes 36 % (21-51); MDiff Complete? YES; Mean Corpuscular HGB CONC 31.1 g/dL (32.0-36.0); Mean Corpuscular Hemoglobin 28.2 pg (27.0-31.0); Mean Corpuscular Volume 90.5 fL (78.0-98.0); Mean Platelet Volume 10.6 fL (7.4-10.4); Monocytes 26 % (0-10); Neutrophil 31 % (42-75); Platelet Count 98 thou/uL (130-400); Platelet Morphology Comment Appears Decreased; RBC Distribution Width 17.9 % (11.5-14.5); Red Blood Cell (RBC) Count 3.47 mill/uL (4.70-6.10); White Blood Cell (WBC) Count 1.9 thou/uL (4.8-10.8)
[2019-02-04] MEDS ORDERED: Calcium Chloride 1 GM/10 ML Abboject SYRINGE ONE (02:30)
[2019-02-04] MEDS ORDERED: Morphine 4 MG/ML VIAL ONE (02:30)
[2019-02-04] MEDS ORDERED: POTASSIUM CHLORIDE IVPB SCH (02:45)
[2019-02-04] MEDS ORDERED: SODIUM CHLORIDE 0.9% IVPB SCH (02:45)
[2019-02-04 04:52] LABS: Actual Bicarbonate (HCO3v) 18 mEq/L (22-28); Analyzer IN Cardio ER; Base Excess -5.7 mEq/L (-2.0 to +3.0); Calcium, Ionized 1.07 mmol/L (1.16-1.32); Chloride (ABG LAB) 109 mmol/L (98-106); Hemoglobin (Hb) 9.4 g/dL (13.2-17.3); Potassium - ABG Lab 3.17 mmol/L (3.70-5.30); Sodium 133.9 mmol/L (133-146)
[2019-02-04] MEDS ORDERED: Ondansetron PF 4 MG/2 ML Vial IVP PRN ×2 (05:09→09:12)
[2019-02-04] MEDS ORDERED: Ondansetron ODT 4 MG TAB SL PRN (05:09)
[2019-02-04] MEDS ORDERED: Lactated Ringer's 1,000 ML IV SCH (05:15)
[2019-02-04] MEDS: Morphine 4 MG/ML VIAL SLOW IVP PRN ×2 (05:27→08:42)
[2019-02-04 06:35] VITALS: BMI 29.5
--- NOTE | 2019-02-04 07:18 | CT ---
CT OF THE ABDOMEN AND PELVIS WITH IV CONTRAST: Date: 02/04/19 INDICATION: History of colorectal cancer with diarrhea. COMPARISON: Prior exam dated 12/28/18. FINDINGS: There is bilateral male gynecomastia. Lung bases are clear. The hepatic metastatic disease is slightly worsened from the prior examination with index in the righ t hepatic lobe previously measuring 4.7 cm, now measuring 5.1 cm. Persistent splenomegaly of 15 cm again noted. The pancreas, adrenal glands, and kidneys appear within normal limits. No free fluid is evident. The degree and extent of the colitis involving the sigmoid colon, descending colon, and splenic flexu re has worsened. There is now colitis involving the transverse colon. Small bowel is normal caliber. No drainable fluid collection is evident. The irregular wall thickening involving the level of the re ctum likely related to the patient's primary malignancy is stable. The degree of presacral edema is s lightly worsened from the prior exam. No suspicious osteolytic or osteoblastic lesion is evident. IMPRESSION: 1. Worsening colitis, now involving not only the sigmoid colon and descending colon, but the splenic flexure and transverse colon. No drainable fluid collection is evident. 2. Persistent circumferential soft tissue mass of the rectum corresponding to the patient's known re ctal cancer. 3. Worsening hepatic metastatic disease. 4. Stable splenomegaly. 5. Slightly worsening nonspecific presacral edema. This may be related to therapy changes. POS: FRANKY
[2019-02-04 07:33] LABS: Lactic Acid 3.1 mmol/L (0.5-2.2)
[2019-02-04] MEDS ORDERED: Zolpidem Tartrate 5 MG TAB PO PRN (09:12)
[2019-02-04] MEDS ORDERED: Diabetic Tussin 200 MG/10 ML UDCUP PO PRN (09:12)
[2019-02-04] MEDS ORDERED: Ondansetron ODT 4 MG TAB PO PRN (09:12)
[2019-02-04] MEDS ORDERED: Eucerin (Mineral Oil/Petrolatum,White) 30 gm Jar TOP PRN (09:12)
[2019-02-04] MEDS ORDERED: Dextrose 50% Abboject 50 ML SYRINGE SLOW IVP PRN (09:12)
[2019-02-04] MEDS ORDERED: hydrALAZINE 20 MG/ML VIAL SLOW IVP PRN (09:12)
[2019-02-04] MEDS ORDERED: Calcium Carbonate 500 MG ChewTAB PO PRN (09:12)
[2019-02-04] MEDS ORDERED: Cepastat Lozenges 1 LOZ PO PRN (09:12)
[2019-02-04] MEDS ORDERED: Acetaminophen 325 MG TAB PO PRN (09:12)
[2019-02-04] MEDS ORDERED: Sodium Chloride 0.65% Nasal 44 ML BOT EA NARE PRN (09:12)
[2019-02-04] MEDS ORDERED: HYDROcodone/Acetaminophen 10/325 mg Tablet PO PRN (09:12)
[2019-02-04] MEDS ORDERED: HumaLOG 300 UNITS/3 ML VIAL SC PRN ×2 (09:12)
[2019-02-04] MEDS ORDERED: Dextrose 5% in Water 1,000 ML IV PRN (09:12)
[2019-02-04] MEDS ORDERED: Artificial Tears 18 DROP/0.9 ML EA EYE PRN (09:12)
--- NOTE | 2019-02-04 09:19 | HP ---
PRIMARY CARE PHYSICIAN: Deuce Mcdonough MD REASON FOR ADMISSION: Dehydration, gastroenteritis. HISTORY OF PRESENT ILLNESS: A 28-year-old male, who has advanced stage IV rectal carcinoma with liver metastasis, who came to emergency room last night with complaint of worsening diarrhea. The patient reports that he has diarrhea several times per day, which was liquidy without any pus or blood. He denies any associated nausea, vomiting, or abdominal pain. He denies any fever or chills. He denies any recent antibiotic exposure. Because of diarrhea, he was feeling weak, dizzy and lightheaded, and that is why he decided to come to emergency room for evaluation. Last night when he came to emergency room, he was slightly hypotensive and tachycardic. He was given IV fluid. After that, his vitals improved. When I saw this patient this morning, at that time, the patient was complaining of generalized body ache and weakness. He still had diarrhea. He denies any chest pain, palpitation, abdominal pain. He denies any fever or chills. He denies any melena, or hematochezia. He denies any flu-like illness. He denies any sick exposure, unusual food ingestion. He denies any recent travel. REVIEW OF SYSTEMS: CONSTITUTIONAL: Negative for weight loss or gain, ability to conduct usual activities. SKIN: Negative for rash, itching. EYES: Negative for double vision, pain. ENT/MOUTH: Negative for nose bleeding, neck stiffness, pain, tenderness. CARDIOVASCULAR: Negative for palpitations, dyspnea on exertion, orthopnea. RESPIRATORY: Negative for shortness of breath, wheezing, cough, hemoptysis, fever or night sweats. GASTROINTESTINAL: Negative for poor appetite, abdominal pain, heartburn, nausea , vomiting, constipation, or diarrhea. GENITOURINARY: Negative for urgency, frequency, dysuria, nocturia. MUSCULOSKELETAL: Negative for pain, swelling. NEUROLOGIC/PSYCHIATRIC: Negative for anxiety, depression. ALLERGY/IMMUNOLOGIC: Negative for skin rash, bleeding tendency. Please see my HPI for pertinent positive and negative. All other review of systems reviewed and negative, except as mentioned in HPI. PAST MEDICAL HISTORY: 1. Stage IV rectal carcinoma with liver metastasis. Now, the patient is not on any chemotherapy. 2. History of recurrent diarrhea secondary to chemotherapy. 3. History of C. diff colitis, required vancomycin therapy in past. 4. Diabetes type 2. 5. Obesity. PAST SURGICAL HISTORY: MediPort placement and appendicectomy. PAST PSYCHIATRIC HISTORY: Anxiety and depression. SOCIAL HISTORY: The patient lives at home with family. No history of tobacco, alcohol, or illicit drug abuse. FAMILY HISTORY: Grandfather had colon cancer, and he by age of 75. His mother had congestive heart failure and myocardial infarction and she by age of 56. ALLERGY: Amoxicillin CURRENT HOME MEDICATIONS: 1. [place] 10 one tablet q.8 hourly p.r.n. 2. Cymbalta 30 mg daily. 3. NovoLog insulin 10 units subcu b.i.d. 4. Lidoderm patch daily p.r.n. 5. Morphine sulfate 30 mg b.i.d. 6. Colace 100 mg p.o. b.i.d. 7. Gabapentin 300 mg p.o. b.i.d. 8. Mobic 15 mg p.o. daily. 9. Florastor 250 mg p.o. daily. EMERGENCY ROOM COURSE: The patient received potassium chloride and with IV fluid, calcium chloride, morphine sulfate 4 mg and IV fluid. PHYSICAL EXAMINATION: VITAL SIGNS: On arrival, blood pressure 99/64, pulse 107, respiratory rate 19, temperature 97.6, saturation 99% on room air. Weight 85.2 kg. GENERAL: The patient is currently alert, awake, appears chronically ill, no obvious acute distress. HEENT: Head; normocephalic, atraumatic. Eyes; pupils round, reactive to light. Extraocular muscles intact. ENT; oropharynx within normal limits. Somewhat dry appearing mucous membranes. No oral lesion. No pharyngeal erythema. No exudate. NECK: Supple. No JVD. No thyromegaly. No carotid bruit. No jugular venous distention. LUNGS: Clear to auscultation without any rhonchi or rales. CARDIAC: S1, S2. Regular without any murmur. No gallop. No rub. ABDOMEN: Soft. Bowel sounds present. Nontender. Nondistended. No organomegaly. No mass. No suprapubic tenderness. BACK: Unremarkable. No CVA tenderness. EXTREMITIES: Upper extremities, passive movement of all joints are normal. Lower extremity, no edema. Good distal pulsation. SKIN: No skin rash. HEMATOLOGICAL: No lymphadenopathy. PSYCHIATRIC: Normal affect. SIGNIFICANT LABORATORY DATA/IMAGING STUDIES: EKG showing sinus tachycardia. CT abdomen and pelvis showing worsening colitis, now involving not only sigmoid colon, but descending colon, splenic flexure, and transverse colon. Persistent circumferential soft tissue mass of the rectum, worsening of liver metastasis, splenomegaly, presacral edema. CBC; WBC 1.9, hemoglobin 9.8, platelets 98 with bandemia. VBG; pH of 7.4, CO2 of 30.4, O2 of 56.3, bicarb of 18. BMP; sodium 134, potassium 3.2, chloride 102, carbon dioxide 19, BUN 32, creatinine 1.34, glucose 98, calcium 7.7, magnesium 2.1, bilirubin 3.5, AST 267, ALT 84, alkaline phosphatase 529, albumin 2.5. Stool for C. diff negative. Campylobacter antigen negative and Shiga toxin negative. ASSESSMENT AND PLAN: Impression: 1. Acute colitis. This patient has a CT finding of valdez colitis. He has worsening of diarrhea. His stool for infection workup is negative. We will consult food cart attendant. We will try symptomatic treatment. The patient has associated significant dehydration that needs to be corrected. We will also start empirically vancomycin given his previous history of C. diff and high risk for recurrent C. diff infection. We will keep him on contact precaution. We will monitor while in hospital. 2. Dehydration and volume depletion. The patient has hypotension and relative tachycardia secondary to diarrhea and volume loss. The patient will require IV fluid with potassium supplementation. 3. Acute kidney failure, likely due to volume depletion and prerenal etiology. We will continue with IV fluid, and we will monitor renal function. 4. Metabolic acidosis likely due to diarrhea. We will repeat BMP tomorrow. 5. Abnormal electrolytes. The patient has hyponatremia, hypokalemia, which will be corrected with IV fluid. Lactic acidosis, likely due to underlying volume depletion and dehydration. We will repeat lactic acid tomorrow. 6. Metastatic liver from colon cancer and because of that the patient had jaundice, hypoalbuminemia, and abnormal liver function tests. We will repeat LFT tomorrow. 7. Stage IV metastatic rectal cancer. The patient is not on any chemotherapy at this point. We will consult palliative care. 8. Pancytopenia, likely due to chemotherapy. We will repeat CBC tomorrow. 9. Diabetes type 2. We will continue with insulin as per sliding scale protocol. 10. Chronic pain disorder. We will continue the patient's home medication, morphine sulfate ER 30 mg b.i.d., gabapentin 300 mg p.o. b.i.d. along with [place] p.r.n. basis, and Cymbalta 30 mg daily. 11. Deep vein thrombosis prophylaxis, SCD boots. No Lovenox because of low platelet count. 12. Gastrointestinal prophylaxis. Pepcid 20 mg IV or p.o. b.i.d. CODE STATUS: The patient is full code. The patient's sister is surrogate decision maker. DISPOSITION PLAN: Based on clinical course, we are expecting the patient's stay in hospital more than 2 midnights. Plan of care discussed with the patient in detail. Job ID: [id number] [facility]
[2019-02-04] MEDS ORDERED: ISOVUE-370 76%-LOCM 1 ML ONE (09:29)
[2019-02-04] MEDS: Morphine 2 MG/ML SYRINGE SLOW IVP PRN ×2 (12:49→16:24)
[2019-02-04] MEDS: Vancomycin HCl 25 MG/ML Oral PO SCH ×2 (12:51→17:28)
[2019-02-04] MEDS: D5 0.9% NS w/ 20 mEq KCl 1,000 ML IV SCH (16:27)
[2019-02-04] MEDS ORDERED: Sodium Chloride 0.9% 1,000 ML IV SCH (21:00)
[2019-02-04] MEDS ORDERED: Fentanyl 100 MCG/2 ML VIAL SLOW IVP PRN (22:15)
[2019-02-04] MEDS: Gabapentin 300 MG CAP PO SCH (22:35)
[2019-02-04] MEDS: Famotidine 20 MG TAB PO SCH (22:36)
[2019-02-04] MEDS: Saccharomyces boulardii 250 MG CAP PO SCH (22:41)
--- NOTE | 2019-02-04 22:43 | CON ---
DATE OF CONSULTATION: HISTORY OF PRESENT ILLNESS: Mr. Barrera is an unfortunate 28-year-old gentleman, who is diagnosed with colorectal cancer in 2017. Apparently, he was found to have metastatic to liver diagnosis and has previously been treated with chemotherapy and I think radiation, but it is not clear. The patient is not talking much presently and the family is not completely sure of that. Recently, he has had progression of disease on imaging studies in the liver. In September, he presented with development of upstream colitis on CAT scan, and attempted sigmoidoscopy at that time was unsuccessful in passing the rectal mass in stricture. He has been in the hospital multiple times in the ER, even more times since then with rectal pain or diarrhea or abdominal pain. Most recently, he was in the hospital from 01/14 to 01/17. He did have stool positive for C. diff at that time, which was treated. He was back in the ER on 01/27, 01/28, and 01/26 and then returned on the to the ER with pain. He returned early this morning with complaints of weakness, intractable diarrhea, which persisted since he was in the emergency room on Tuesday, presently it may be related to abdominal pain. The emergency room physicians thought he was very dehydrated. His stools came back negative for C diff this time. He has multiple normal chi. He had a CAT scan, it shows worsening mets in the liver in the emergency room and thickening of the colon consistent with colitis. He denies any bleeding. He denies any abdominal pain. He is very sedate at time, complains mainly of leg pain. Apparently in the emergency room, he was hypotensive and tachycardic. The family states he has not eaten any of his breakfast today and the nurse states he has not been eating well at all. He was admitted with diagnoses of pancytopenia, metastatic colon cancer, abnormal electrolytes, metabolic acidosis from diarrhea, acute renal failure secondary to volume depletion, that was yesterday. His IV is presently hep-locked. REVIEW OF SYSTEMS: Unable to be obtained, the patient is fairly sedate. PAST MEDICAL HISTORY: 1. Stage IV rectal cancer with liver metastasis, advancing on most recent study. He received chemotherapy about 2 weeks ago last, he would be due again this week but Dr. Trejo wants to stop that the nurse and the aunt notes. 2. History of recurrent diarrhea. It is unclear if how much this is chemotherapy related, infection related, or obstruction related. 3. Colitis on CT scan. He has had C diff in the last month with positive fecal leukocytes. He has had thickening on a CT scan since back in September. Some of this may be related to portal hypertension from the diffuse metastatic disease in the liver and resultant edema of the bowel from portal hypertensive changes. 4. Type 2 diabetes. PAST SURGICAL HISTORY: Appendectomy and MediPort placement. SOCIAL HISTORY: The patient lives at home with family. His 20-year-old sister is here. His aunt is here. He does not smoke, drink, or use drugs. FAMILY HISTORY: Apparently, a grandfather had colon cancer. Mother had heart failure and microinfarction, at 56. MEDICATIONS: At home; 1. [place]. 2. Cymbalta. 3. NovoLog. 4. Lidoderm. 5. Morphine. 6. Colace. 7. Gabapentin. 8. Mobic. 9. Florastor. Present medications; 1. Tylenol. 2. Cymbalta. 3. Pepcid. 4. Neurontin. 5. P.r.n. hydralazine. 6. P.r.n. [place]. 7. Insulin sliding scale. 8. Morphine p.r.n. 9. Zofran p.r.n. 10. Florastor. 11. Vancomycin 125 p.o. q.6. PHYSICAL EXAMINATION: GENERAL: The patient is in bed. He appears chronically ill. Does not talk to me much. His family states he has new complaints of leg pain. VITAL SIGNS: Temperature is 97.5, pulse 103, blood pressure 96/59; early this morning, it was 111/77. HEENT: His sclerae are somewhat icteric. Mucous membranes are dry. HEART: Sinus tachycardia. LUNGS: Clear. ABDOMEN: Soft and nontender. RECTAL: Shows a mass in the rectum, which I cannot get my finger passed. EXTREMITIES: Reveal no clubbing, cyanosis, or edema. He is arousable. LABORATORY DATA: Sodium 134, potassium 3.2, bicarb 19, chloride 102, anion gap 16, BUN 32, creatinine 1.34, calcium 7.7, bilirubin 3.5, AST 267, ALT 84, alkaline phosphatase 529, phosphorus is 3.3 on 01/22. Magnesium is 2.1. Direct bilirubin is 2. Lipase is less than 4. Last CEA on 01/22 was 153.3, that is the highest it has been 157 and 319. CBC shows a white count of 1.9, hemoglobin 9.8, platelet count of 98,000. IMAGING DATA: 1. CT scan of the abdomen and pelvis from 02/04/2019 showed enlarging masses in the liver, persistent circumferential soft tissue mass in the rectum with no rectal cancer. 2. Colitis or edema, now worsening in the sigmoid and descending colon and in splenic flexure and transverse colon. There is no pericolonic fluid or abscess. There is presacral edema. There is some mild splenomegaly. ASSESSMENT: 1. Chronic diarrhea. This has been worsening recently. I suspect there is partially an outlet obstruction component, some of this may be a chemotherapy component, and some of this may be related to C diff, although he has a negative C diff toxin now. He shows no signs of severe typhlitis, fever, or leukocytosis. He has been started on empiric vancomycin. He shows no overt obstruction at this time by imaging studies. 2. Advancing cancer despite chemotherapy. His CEA has been going up and his CAT scan shows objective evidence of enlarged liver metastasis. 3. Colitis on CT. This may be portal hypertensive, edema, and passive congestion of the colon as he has massive amount of liver metastasis. Alternatively, this could be mild typhlitis or antibiotic associated. He shows no signs of toxic megacolon or sepsis from this at time. 4. Dehydration. The patient is not on IV fluids. They were stopped by the hospitalist today. RECOMMENDATIONS: 1. Resume IV fluids and potassium replacement. 2. Monitor electrolytes. 3. Consult the patient's oncologist. 4. We will discuss with the patient's oncologist tomorrow in further detail what it may be. Unless they are going to offer other treatments, palliative care may be reasonable to consider, although this is a very young patient, that will be the last resort obviously. Job ID: [id number]
[2019-02-04] MEDS: Famotidine/PF 20 mg/2ml Vial SLOW IVP SCH (23:04)
[2019-02-05] MEDS: Vancomycin HCl 25 MG/ML Oral PO SCH ×4 (00:02→17:19)
[2019-02-05] MEDS ORDERED: Fentanyl 100 MCG/2 ML VIAL SLOW IVP SCH (03:30)
[2019-02-05] MEDS: D5 0.9% NS w/ 20 mEq KCl 1,000 ML IV SCH ×3 (04:12→19:12)
[2019-02-05 06:33] LABS: Lactic Acid 2.1 mmol/L (0.5-2.2)
[2019-02-05 06:42] LABS: ALT (SGPT) 56 U/L (8-55); AST (SGOT) 107 U/L (5-34); Albumin 2.1 g/dL (3.5-5.0); Alkaline Phosphatase 469 U/L (40-150); Anion Gap 11 mmol/L (10-20); BUN (Urea Nitrogen) 18 mg/dL (8.9-20.6); Bilirubin, Total 3.3 mg/dL (0.2-1.2); Calc. Creatinine Clearance 188 mL/min (70-130); Calcium 7.4 mg/dL (7.8-10.44); Carbon Dioxide 17 mmol/L (22-29); Chloride 108 mmol/L (98-107); Estimated GFR-MDRD Greater than 90; Globulin 2.5 g/dL (2.4-3.5); Glucose 105 mg/dL (70-105); Magnesium 1.8 mg/dL (1.6-2.6); Potassium 3.3 mmol/L (3.5-5.1); Protein, Total 4.6 g/dL (6.0-8.3); Sodium 133 mmol/L (136-145)
[2019-02-05 06:53] LABS: Phosphorus 1.1 mg/dL (2.3-4.7)
[2019-02-05 07:00] LABS: Band 9 % (5-11); Hemoglobin 9.4 g/dL (14.0-18.0); Lymphocytes 31 % (21-51); MDiff Complete? YES; Mean Corpuscular HGB CONC 31.6 g/dL (32.0-36.0); Mean Corpuscular Hemoglobin 28.7 pg (27.0-31.0); Mean Platelet Volume 10.2 fL (7.4-10.4); Monocytes 34 % (0-10); Myelocyte 2 % (0-0); Neutrophil 24 % (42-75); Platelet Count 101 thou/uL (130-400); Platelet Morphology Comment Appears Decreased; Red Blood Cell (RBC) Count 3.28 mill/uL (4.70-6.10); White Blood Cell (WBC) Count 3.2 thou/uL (4.8-10.8)
[2019-02-05] MEDS ORDERED: Potassium Phosphate 15 MMOL in Sodium Chloride 0.9% 250 ML 250 ML IVPB SCH (07:00)
[2019-02-05] MEDS: Saccharomyces boulardii 250 MG CAP PO SCH ×2 (08:16→20:04)
[2019-02-05] MEDS: DULoxetine 30 MG CAP PO SCH (08:16)
[2019-02-05] MEDS: K-Phos Neutral 250 MG TAB PO SCH ×3 (08:16→17:19)
[2019-02-05] MEDS: Gabapentin 300 MG CAP PO SCH ×2 (08:16→20:04)
[2019-02-05] MEDS: Famotidine/PF 20 mg/2ml Vial SLOW IVP SCH ×2 (08:16→20:05)
[2019-02-05] MEDS: Famotidine 20 MG TAB PO SCH ×2 (08:16→20:04)
[2019-02-05] MEDS: Morphine 2 MG/ML SYRINGE SLOW IVP PRN (08:19)
[2019-02-05] MEDS ORDERED: Ketorolac Tromethamine 30 MG/ML VIAL IVP PRN (10:30)
[2019-02-05] MEDS: Fentanyl 100 MCG/2 ML VIAL SLOW IVP PRN ×6 (10:49→22:33)
--- NOTE | 2019-02-05 12:33 | PDOC.PN ---
- Subjective Encounter Start Date: 02/05/19 Encounter Start Time: 10:15 -: old records requested/rev Patient seen and examined. No new complaints. No overnight events - Objective Resuscitation Status - Order Detail: 02/04/19 09:09 Resuscitation Status Routine Resuscitation Status: FULL: Full Resuscitation MAR Reviewed: Yes Vital Signs & Weight: Vital Signs (12 hours) Temp Pulse Resp BP Pulse Ox 02/05/19 11:00 97.8 F 105 H 18 94/61 98 02/05/19 08:15 99 02/05/19 08:00 98.3 F 109 H 18 103/71 99 02/05/19 04:00 98.7 F 108 H 18 94/62 97 02/05/19 03:32 111 H 95/63 Weight Weight 183 lb 1.76 oz I&O: 02/04/19 02/05/19 02/06/19 06:59 06:59 06:59 Intake Total 3340 Balance 3340 Result Diagrams: 02/05/19 05:56 02/05/19 05:56 Additional Labs: Accuchecks 02/05/19 02/05/19 02/04/19 11:26 04:58 19:53 POC Glucose 155 H 103 121 H 02/04/19 02/04/19 15:37 11:58 POC Glucose 93 131 H Phys Exam - Physical Examination Constitutional: NAD HEENT: PERRLA, moist MMs, sclera anicteric Neck: no JVD, supple Respiratory: no wheezing, no rales, no rhonchi Cardiovascular: RRR, no significant murmur, no rub Gastrointestinal: soft, non-tender, no distention Musculoskeletal: no edema, pulses present Neurological: non-focal, normal sensation Lymphatic: no nodes Psychiatric: normal affect, A&O x 3 Skin: no rash, normal turgor Dx/Plan (1) Acute kidney failure Status: Acute (2) Colitis Code(s): K52.9 - NONINFECTIVE GASTROENTERITIS AND COLITIS, UNSPECIFIED Status : Acute (3) Hypokalemia Code(s): E87.6 - HYPOKALEMIA Status: Acute (4) Hyponatremia Code(s): E87.1 - HYPO-OSMOLALITY AND HYPONATREMIA Status: Acute (5) Hypophosphatemia Code(s): E83.39 - OTHER DISORDERS OF PHOSPHORUS METABOLISM Status: Acute (6) Pancytopenia Code(s): D61.818 - OTHER PANCYTOPENIA Status: Acute (7) 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 * replace potassium phosphate Review of Systems - Review of Systems ENT: negative: Ear Pain, Ear Discharge, Nose Pain, Nose Discharge, Nose Congestion, Mouth Pain, Mouth Swelling, Throat Pain, Throat Swelling, Other Respiratory: negative: Cough, Dry, Shortness of Breath, Hemoptysis, SOB with Excertion, Pleuritic Pain, Sputum, Wheezing Cardiovascular: negative: chest pain, palpitations, orthopnea, paroxysmal nocturnal dyspnea, edema, light headedness, other Gastrointestinal: Diarrhea. negative: Nausea, Vomiting, Abdominal Pain, Constipation, Melena, Hematochezia, Other Genitourinary: negative: Dysuria, Frequency, Incontinence, Hematuria, Retention , Other Musculoskeletal: negative: Neck Pain, Shoulder Pain, Arm Pain, Back Pain, Hand Pain, Leg Pain, Foot Pain, Other - Medications/Allergies Allergies/Adverse Reactions: Allergies Allergy/AdvReac Type Severity Reaction Status Date / Time amoxicillin Allergy Rash Verified 02/12/17 00:54 Medications: Current Medications Acetaminophen (Tylenol) 650 mg PO Q4H PRN PRN Reason: Headache/Fever/Mild Pain (1-3) Hydrocodone Bitart/Acetaminophen ([place] 10/325) 1 tab PO Q4H PRN PRN Reason: Moderate Pain (4-6) Artificial Tears (Tears Naturale) 2 drop EA EYE PRN PRN PRN Reason: Dry Eyes Calcium Carbonate (Tums) 1,000 mg PO Q4H PRN PRN Reason: Heartburn or Indigestion Dextrose/Water (Dextrose 50%) 25 gm SLOW IVP PRN PRN PRN Reason: Hypoglycemia Duloxetine HCl (Cymbalta) 30 mg PO DAILY AN Last Admin: 02/05/19 08:16 Dose: 30 mg Famotidine (Pepcid) 20 mg SLOW IVP Q12HR [facility] Last Admin: 02/05/19 08:16 Dose: Not Given Famotidine (Pepcid) 20 mg PO BID [facility] Last Admin: 02/05/19 08:16 Dose: 20 mg Fentanyl (Sublimaze) 25 mcg SLOW IVP Q2H PRN PRN Reason: Pain Last Admin: 02/05/19 10:49 Dose: 25 mcg Gabapentin (Neurontin) 300 mg PO BID [facility] Last Admin: 02/05/19 08:16 Dose: 300 mg Glucagon (Glucagon) 1 mg IM PRN PRN PRN Reason: Hypoglycemia Guaifenesin (Robitussin Sf) 200 mg PO Q4H PRN PRN Reason: Cough Hydralazine HCl (Apresoline) 10 mg SLOW IVP Q4H PRN PRN Reason: SBP > 180 and HR < 70 Dextrose/Water (D5w) 1,000 mls @ 0 mls/hr IV .Q0M PRN PRN Reason: Hypoglycemia Potassium Chloride/Dextrose/Sod Cl (D5 0.9% Ns W/ 20 Meq Kcl) 1,000 mls @ 100 mls/hr IV .Q10H [facility] Last Admin: 02/05/19 11:43 Dose: Not Given Insulin Human Lispro (Humalog) 0 units SC .MODERATE SLIDING SC PRN PRN Reason: Moderate Correctional Scale Insulin Human Lispro (Humalog) 0 units SC .BEDTIME SLIDING SC PRN PRN Reason: Bedtime Correctional Scale Ketorolac Tromethamine (Toradol) 15 mg IVP Q6H PRN PRN Reason: Pain Stop: 02/10/19 10:31 Mineral Oil/White Petrolatum (Eucerin Cream) 0 gm TOP BIDPRN PRN PRN Reason: Dry Skin Ondansetron HCl (Zofran Odt) 4 mg PO Q6H PRN PRN Reason: Nausea/Vomiting Ondansetron HCl (Zofran) 4 mg IVP Q6H PRN PRN Reason: Nausea/Vomiting Phosphorus (Kphos Neutral) 250 mg PO TID-WM [facility] Last Admin: 02/05/19 10:50 Dose: 250 mg Saccharomyces Boulardii (Florastor) 250 mg PO BID [facility] Last Admin: 02/05/19 08:16 Dose: 250 mg Sodium Chloride ([place] Nasal [place] 0.65%) 0 ml EA NARE QIDPRN PRN PRN Reason: Nasal Congestion Sodium Chloride (Flush - Normal Saline) 10 ml IVF Q12HR [facility] Last Admin: 02/05/19 08:17 Dose: 10 ml Sodium Chloride (Flush - Normal Saline) 10 ml IVF PRN PRN PRN Reason: Saline Flush Throat Lozenges (Cepastat Lozenges) 1 bereket PO Q2H PRN PRN Reason: Sore Throat Vancomycin HCl (First Vancomycin) 125 mg PO Q6HR [facility] Last Admin: 02/05/19 10:50 Dose: 125 mg Zolpidem Tartrate (Ambien) 5 mg PO HSPRN PRN PRN Reason: Insomnia
[2019-02-05] MEDS: Cholestyramine/Aspartame 4 gm Packet PO SCH ×3 (15:15→22:07)
[2019-02-05] MEDS: Morphine ER 30 MG TAB PO SCH (20:04)
[2019-02-05] MEDS ORDERED: Lidocaine 5% Patch TD SCH (21:00)
--- NOTE | 2019-02-05 21:40 | CON ---
DATE OF CONSULTATION: REASON FOR CONSULT: Rectal cancer. HISTORY OF PRESENT ILLNESS: William is a 28-year-old male who was diagnosed with stage IV rectal cancer in 2016. He has undergone multiple chemo regimens. Most recently, he has been on FOLFOX and Avastin. He has had multiple hospitalizations and ER visits in the last 3 months for pain, diarrhea, and dehydration. On Tuesday, he called EMS for weakness, dizziness, and found to be hypotensive and tachycardic. He was dehydrated and started on IV fluids. The patient had a CT of his abdomen which showed progressive disease particularly in the liver compared to CT scan from 1 month prior. He had worsening colitis. Dr. Flanagan has seen William and placed him on cholestyramine. The patient recently met with Dr. Trejo to discuss progression from CT scan in December. The patient's CEA has continued to increase and progression has been seen on the CT scans. The patient was referred to hospice by Dr. Trejo. The patient currently complains of pain and diarrhea. PAST MEDICAL HISTORY: 1. Advanced stage IV rectal cancer with recent progression of liver metastasis. 2. Colitis. 3. Diabetes mellitus 2. PAST SURGICAL HISTORY: 1. Appendectomy. 2. Rectal biopsy. ALLERGIES: AMOXICILLIN. HOME MEDICATIONS: 1. MS Contin 30 mg b.i.d. 2. Gabapentin 300 mg b.i.d. 3. Hydrocodone 10/325 one p.o. q.4-6 hours p.r.n. 4. Lomotil t.i.d. 5. Insulin b.i.d. 6. Zofran p.r.n. 7. Bentyl q.i.d. FAMILY HISTORY: Grandfather had colon cancer. Mother had abdominal polyp. SOCIAL HISTORY: Single. No children. Lives alone. REVIEW OF SYSTEMS: Negative except for noted in HPI. PHYSICAL EXAMINATION: VITAL SIGNS: Temperature 97.8, pulse is 105, respiratory rate 18, BP is 94/61. He is 98% on room air. GENERAL: This is a disheveled male in acute pain. HEENT: Normocephalic and atraumatic. Pupils are equal and reactive to light. NECK: Supple. CV: Regular rate and rhythm. LUNGS: Clear. ABDOMEN: Soft and nontender. Bowel sounds are positive. EXTREMITIES: No clubbing, cyanosis, or edema. SKIN: No rash. HEMATOLOGICAL: No petechiae or purpura. NEUROLOGIC: He is nonfocal. PSYCH: The patient is alert, oriented, and appropriate. PERTINENT LABS AND X-RAYS: Current WBCs 3.2, hemoglobin 9.4, hematocrit 29.9, platelet counts 101,000. He has 24% neutrophils, 9% bands, 31% lymphocytes. Sodium is 133, potassium 3.3, chloride 108, CO2 is 17, BUN is 18, creatinine 0.68, lactic acid 2.1, calcium 7.4, phosphorus 1.1, magnesium 1.8, bilirubin is 3.3, AST is 107, ALT is 56, alkaline phosphatase is 469. Serum total protein is 4.6, albumin 2.1, globulin 2.5. Radiology per HPI. ASSESSMENT: 1. Progressive rectal cancer despite chemotherapy. 2. Worsening colitis. 3. Intractable pain. 4. Worsening liver function. DISCUSSION: The patient received a dose of fentanyl during our conversation. His sister and cousin were present at bedside. The patient met recently with Dr. Trejo and was unfortunately informed that there were no further treatment options. He recommended hospice. The patient has been resistant to accept hospice despite advantages including better pain management. He does take MS Contin daily, which I will resume today as his pain is currently poorly controlled. We will continue Toradol, fentanyl, and hydrocodone p.r.n. Further treatment for his colitis with Dr. Flanagan. We will follow along with this unfortunate gentleman. Thank you for the consult. Job ID: [id number]
--- NOTE | 2019-02-05 23:08 | PRG ---
DATE OF SERVICE: 02/05/2019 SUBJECTIVE: Mr. Barrera complains of continued abdominal discomfort and rectal discomfort and diarrhea with incontinence. OBJECTIVE: VITAL SIGNS: Temperature 97.8, pulse 105, blood pressure 106/72. GENERAL: He is in no acute distress, but is uncomfortable. LUNGS: Clear to auscultation bilaterally. HEART: Tachycardic, S1 and S2. ABDOMEN: Soft, nontender, and nondistended. Bowel sounds are present. EXTREMITIES: 2+ pitting lower extremity edema. LABORATORY DATA: White blood cell count 3.2, hemoglobin 9.4, platelets 101, bilirubin 3.3, AST 107, ALT 56, alkaline phosphatase 469, albumin 2.1. IMPRESSION: 1. Metastatic colon cancer with disease throughout the liver. He has obstructing rectal symptoms with proximal inflammatory changes of the colon by CT scan. The colon proximal to the rectum cannot not be evaluated due to the obstructing rectal cancer. He is being treated empirically with vancomycin. C diff toxin was negative. Oncology has evaluated Mr. Barrera and no further treatment options are available from a chemotherapy standpoint. Hospice has been recommended. 2. Likely portal hypertension and cholestasis secondary to metastatic liver disease. 3. Protein malnutrition. RECOMMENDATIONS: 1. Supportive care with IV fluids and pain control with opioid medications. 2. Colostomy for symptom control could be considered. However, given that Oncology is recommending no further treatment, hospice care more likely is the appropriate next step. Consider General Surgery opinion regarding this. Job ID: [id number]
[2019-02-06] MEDS: Vancomycin HCl 25 MG/ML Oral PO SCH ×3 (00:14→11:52)
[2019-02-06] MEDS: D5 0.9% NS w/ 20 mEq KCl 1,000 ML IV SCH (05:34)
[2019-02-06 06:46] LABS: Hemoglobin 9.3 g/dL (14.0-18.0); Mean Corpuscular HGB CONC 31.2 g/dL (32.0-36.0); Mean Corpuscular Hemoglobin 28.1 pg (27.0-31.0); Mean Corpuscular Volume 90.3 fL (78.0-98.0); Mean Platelet Volume 10.5 fL (7.4-10.4); Platelet Count 91 thou/uL (130-400); White Blood Cell (WBC) Count 5.6 thou/uL (4.8-10.8)
[2019-02-06 06:59] LABS: Anion Gap 9 mmol/L (10-20); BUN (Urea Nitrogen) 10 mg/dL (8.9-20.6); Calc. Creatinine Clearance 203 mL/min (70-130); Calcium 7.3 mg/dL (7.8-10.44); Carbon Dioxide 19 mmol/L (22-29); Chloride 108 mmol/L (98-107); Estimated GFR-MDRD Greater than 90; Glucose 90 mg/dL (70-105); Magnesium 1.6 mg/dL (1.6-2.6); Phosphorus 1.8 mg/dL (2.3-4.7); Potassium 3.4 mmol/L (3.5-5.1); Sodium 133 mmol/L (136-145)
[2019-02-06] MEDS: K-Phos Neutral 250 MG TAB PO SCH ×2 (07:48→11:52)
[2019-02-06] MEDS: DULoxetine 30 MG CAP PO SCH (07:48)
[2019-02-06] MEDS: Gabapentin 300 MG CAP PO SCH (07:48)
[2019-02-06] MEDS: Saccharomyces boulardii 250 MG CAP PO SCH (07:48)
[2019-02-06] MEDS: Famotidine 20 MG TAB PO SCH (07:48)
[2019-02-06] MEDS: Cholestyramine/Aspartame 4 gm Packet PO SCH (07:49)
[2019-02-06] MEDS: Fentanyl 100 MCG/2 ML VIAL SLOW IVP PRN (07:49)
[2019-02-06 07:58] LABS: Band 22 % (5-11); Dohle Bodies SLIGHT; Eosinophils 1 % (0-10); Lymphocytes 26 % (21-51); MDiff Complete? YES; Metamyelocyte 1 % (0-0); Monocytes 10 % (0-10); Myelocyte 1 % (0-0); Neutrophil 38 % (42-75); Platelet Morphology Comment Appears Decreased; Polychromasia SLIGHT = 2-3 cells (100X) (0-2/hpf); Reactive Lymphocytes 1 % (0-10)
[2019-02-06] MEDS: Famotidine/PF 20 mg/2ml Vial SLOW IVP SCH (07:58)
[2019-02-06] MEDS: Morphine ER 30 MG TAB PO SCH (07:58)
[2019-02-06] MEDS ORDERED: Potassium Phosphate 9 MMOL in Sodium Chloride 0.9% 100 ML IVPB SCH (08:00)
[2019-02-06] MEDS ORDERED: Lidocaine Patch Removal 1 EACH TOP SCH (09:00)
--- NOTE | 2019-02-06 10:37 | PDOC.PN ---
- Subjective Encounter Start Date: 02/06/19 Encounter Start Time: 09:40 Patient seen and examined. No new complaints. No overnight events - Objective Resuscitation Status - Order Detail: 02/04/19 09:09 Resuscitation Status Routine Resuscitation Status: FULL: Full Resuscitation MAR Reviewed: Yes Vital Signs & Weight: Vital Signs (12 hours) Temp Pulse Resp BP BP Pulse Ox 02/06/19 08:47 99 02/06/19 07:44 98.5 F 107 H 20 100/69 99 02/06/19 06:00 105 H 115/81 02/05/19 23:00 103 H 106/78 Weight Weight 183 lb 1.76 oz I&O: 02/05/19 02/06/19 02/07/19 06:59 06:59 06:59 Intake Total 3340 3510 Balance 3340 3510 Result Diagrams: 02/06/19 06:18 02/06/19 06:18 Additional Labs: Accuchecks 02/06/19 02/05/19 02/05/19 04:50 20:02 16:55 POC Glucose 107 115 H 109 02/05/19 11:26 POC Glucose 155 H Phys Exam - Physical Examination Constitutional: NAD HEENT: PERRLA, moist MMs, sclera anicteric Neck: no JVD, supple Respiratory: no wheezing, no rales, no rhonchi Cardiovascular: RRR, no significant murmur, no rub Gastrointestinal: soft, non-tender, no distention, positive bowel sounds Musculoskeletal: no edema, pulses present Neurological: non-focal, normal sensation Lymphatic: no nodes Psychiatric: normal affect Skin: no rash, normal turgor Dx/Plan (1) Acute kidney failure Status: Acute (2) Colitis Code(s): K52.9 - NONINFECTIVE GASTROENTERITIS AND COLITIS, UNSPECIFIED Status : Acute (3) Hypokalemia Code(s): E87.6 - HYPOKALEMIA Status: Acute (4) Hyponatremia Code(s): E87.1 - HYPO-OSMOLALITY AND HYPONATREMIA Status: Acute (5) Hypophosphatemia Code(s): E83.39 - OTHER DISORDERS OF PHOSPHORUS METABOLISM Status: Acute (6) Pancytopenia Code(s): D61.818 - OTHER PANCYTOPENIA Status: Acute (7) 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 Review of Systems - Review of Systems ENT: negative: Ear Pain, Ear Discharge, Nose Pain, Nose Discharge, Nose Congestion, Mouth Pain, Mouth Swelling, Throat Pain, Throat Swelling, Other Respiratory: negative: Cough, Dry, Shortness of Breath, Hemoptysis, SOB with Excertion, Pleuritic Pain, Sputum, Wheezing Cardiovascular: negative: chest pain, palpitations, orthopnea, paroxysmal nocturnal dyspnea, edema, light headedness, other Gastrointestinal: negative: Nausea, Vomiting, Abdominal Pain, Diarrhea, Constipation, Melena, Hematochezia, Other Genitourinary: negative: Dysuria, Frequency, Incontinence, Hematuria, Retention , Other Musculoskeletal: negative: Neck Pain, Shoulder Pain, Arm Pain, Back Pain, Hand Pain, Leg Pain, Foot Pain, Other - Medications/Allergies Allergies/Adverse Reactions: Allergies Allergy/AdvReac Type Severity Reaction Status Date / Time amoxicillin Allergy Rash Verified 02/12/17 00:54 Medications: Current Medications Acetaminophen (Tylenol) 650 mg PO Q4H PRN PRN Reason: Headache/Fever/Mild Pain (1-3) Hydrocodone Bitart/Acetaminophen ([place] 10/325) 1 tab PO Q4H PRN PRN Reason: Moderate Pain (4-6) Artificial Tears (Tears Naturale) 2 drop EA EYE PRN PRN PRN Reason: Dry Eyes Calcium Carbonate (Tums) 1,000 mg PO Q4H PRN PRN Reason: Heartburn or Indigestion Cholestyramine Resin ([place] Light) 4 gm PO 1000,2200 [facility] Last Admin: 02/06/19 07:49 Dose: 4 gm Dextrose/Water (Dextrose 50%) 25 gm SLOW IVP PRN PRN PRN Reason: Hypoglycemia Duloxetine HCl (Cymbalta) 30 mg PO DAILY [facility] Last Admin: 02/06/19 07:48 Dose: 30 mg Famotidine (Pepcid) 20 mg SLOW IVP Q12HR [facility] Last Admin: 02/06/19 07:58 Dose: Not Given Famotidine (Pepcid) 20 mg PO BID [facility] Last Admin: 02/06/19 07:48 Dose: 20 mg Fentanyl (Sublimaze) 25 mcg SLOW IVP Q2H PRN PRN Reason: Pain Last Admin: 02/06/19 07:49 Dose: 25 mcg Gabapentin (Neurontin) 300 mg PO BID [facility] Last Admin: 02/06/19 07:48 Dose: 300 mg Glucagon (Glucagon) 1 mg IM PRN PRN PRN Reason: Hypoglycemia Guaifenesin (Robitussin Sf) 200 mg PO Q4H PRN PRN Reason: Cough Hydralazine HCl (Apresoline) 10 mg SLOW IVP Q4H PRN PRN Reason: SBP > 180 and HR < 70 Dextrose/Water (D5w) 1,000 mls @ 0 mls/hr IV .Q0M PRN PRN Reason: Hypoglycemia Potassium Chloride/Dextrose/Sod Cl (D5 0.9% Ns W/ 20 Meq Kcl) 1,000 mls @ 100 mls/hr IV .Q10H [facility] Last Admin: 02/06/19 05:34 Dose: 1,000 mls Potassium Phosphate 9 mmol/ (Sodium Chloride) 103 mls @ 25 mls/hr IVPB 0800 [facility] Stop: 02/06/19 12:00 Last Admin: 02/06/19 08:27 Dose: 103 mls Insulin Human Lispro (Humalog) 0 units SC .MODERATE SLIDING SC PRN PRN Reason: Moderate Correctional Scale Insulin Human Lispro (Humalog) 0 units SC .BEDTIME SLIDING SC PRN PRN Reason: Bedtime Correctional Scale Ketorolac Tromethamine (Toradol) 15 mg IVP Q6H PRN PRN Reason: Pain Stop: 02/10/19 10:31 Lidocaine (Lidoderm 5% Patch) 1 patch TD 2100 [facility] Last Admin: 02/05/19 20:05 Dose: 1 patch Mineral Oil/White Petrolatum (Eucerin Cream) 0 gm TOP BIDPRN PRN PRN Reason: Dry Skin Miscellaneous Medication (Lidocaine Patch Removal) 1 each TOP 0900 [facility] Last Admin: 02/06/19 07:57 Dose: 1 each Morphine Sulfate (Ms Contin) 30 mg PO Q12HR [facility] Last Admin: 02/06/19 07:58 Dose: Not Given Ondansetron HCl (Zofran Odt) 4 mg PO Q6H PRN PRN Reason: Nausea/Vomiting Ondansetron HCl (Zofran) 4 mg IVP Q6H PRN PRN Reason: Nausea/Vomiting Phosphorus (Kphos Neutral) 250 mg PO TID-WM [facility] Last Admin: 02/06/19 07:48 Dose: 250 mg Saccharomyces Boulardii (Florastor) 250 mg PO BID [facility] Last Admin: 02/06/19 07:48 Dose: 250 mg Sodium Chloride ([place] Nasal [place] 0.65%) 0 ml EA NARE QIDPRN PRN PRN Reason: Nasal Congestion Sodium Chloride (Flush - Normal Saline) 10 ml IVF Q12HR [facility] Last Admin: 02/06/19 07:49 Dose: 10 ml Sodium Chloride (Flush - Normal Saline) 10 ml IVF PRN PRN PRN Reason: Saline Flush Throat Lozenges (Cepastat Lozenges) 1 bereket PO Q2H PRN PRN Reason: Sore Throat Vancomycin HCl (First Vancomycin) 125 mg PO Q6HR [facility] Last Admin: 02/06/19 05:33 Dose: 125 mg Zolpidem Tartrate (Ambien) 5 mg PO HSPRN PRN PRN Reason: Insomnia
--- NOTE | 2019-02-06 11:18 | DIS ---
DATE OF ADMISSION: 02/04/2019 DATE OF DISCHARGE: 02/06/2019 PRIMARY CARE PHYSICIAN: Korey Vazquez. DISCHARGE DISPOSITION: Home with home hospice. PRIMARY DISCHARGE DIAGNOSES: Acute kidney failure, colitis, hypokalemia, hyponatremia, hypophosphatemia, and pancytopenia. SECONDARY DISCHARGE DIAGNOSES: Diabetes type 1, cancer associated pain, adenocarcinoma of rectum, metastasis to liver. PRIMARY PROCEDURE/OPERATION: None. RADIOLOGICAL INVESTIGATION: CT abdomen and pelvis. SIGNIFICANT LABORATORY DATA: Hemoglobin 9.3. Sodium 133, potassium 3.4 phosphorus 1.8, BUN 10, and creatinine 0.63. DISCHARGE MEDICATIONS: 1. [place] 10 one tablet q.4 hourly p.r.n. 2. Zofran 8 mg q.8 hourly p.r.n. 3. Bentyl 10 mg q.i.d. p.r.n. 4. Gabapentin 300 mg p.o. t.i.d. 5. NovoLog 10 units subcu b.i.d. 6. Lidocaine patch daily. 7. Morphine sulfate extended release 30 mg b.i.d. 8. Colace 100 mg b.i.d. p.r.n. 9. Florastor 250 mg p.o. b.i.d. CONTRAINDICATION: None. CODE STATUS: Full code. INPATIENT CONSULTANTS: Oncology group. Gastroenterology group. CASE RESULT PENDING ON DISCHARGE: None. ALLERGIES: AMOXICILLIN. DISCHARGE PLAN: Posthospital, the patient will be discharged to home with home hospice. HOSPITAL COURSE: A 28-year-old male, who was admitted by me. Please see my HPI for further detail. He has metastatic rectal cancer. He was having significant diarrhea and volume depletion and electrolyte abnormality and that is why he was admitted to the hospital. He had CT of the abdomen and pelvis, which showed colitis. Gastroenterology and Oncology group was consulted while in hospital. At this point, this patient does not have any more treatment options and that is why we discussed spring encaser for hospice evaluation. The patient will be discharged home with home hospice and he will need symptomatic treatment. While in hospital, we did stool for infection workup that came back negative and that is why the patient did not require any oral vancomycin therapy. He will need symptomatic treatment for diarrhea with Lomotil or loperamide as needed. The patient is seen and examined at bedside today. Please see my progress note from today for further details. Job ID: [id number]
[2019-02-06 14:46] VITALS: BP 117/83; TEMP 97.8
== END 2019-02-06 14:50 | disposition hospice, home (50) | DRG 683 ==
LOC: ERS 00:45 → T4-B 03:15 → OBSVTOIN 03:15
PROVIDERS: ADMIT Internal Medicine; ATTEND Internal Medicine
DX: N17.9 Acute kidney failure, unspecified (principal); E87.1 Hypo-osmolality and hyponatremia; D61.818 Other pancytopenia; C20 Malignant neoplasm of rectum; C78.7 Secondary malignant neoplasm of liver and intrahepatic bile duct; K52.9 Noninfective gastroenteritis and colitis, unspecified; Z51.5 Encounter for palliative care; E87.6 Hypokalemia; E83.39 Other disorders of phosphorus metabolism; E10.9 Type 1 diabetes mellitus without complications; G89.3 Neoplasm related pain (acute) (chronic); F41.9 Anxiety disorder, unspecified; F32.9 Major depressive disorder, single episode, unspecified; E86.0 Dehydration; Z90.49 Acquired absence of other specified parts of digestive tract; Z88.1 Allergy status to other antibiotic agents; Z92.21 Personal history of antineoplastic chemotherapy
CPT/HCPCS: 36415; 36416; 74177; 80048; 80053; 82248; 82805; 83605; 83690; 83735; 84100; 85025; 87045; 87046; 87324; 87449; 87899; 93005; 96361; 96365; 96374; 96375; 96376; J1170; J2270; J2405; J3010; J3480; J3490; J7050; S0028

== ENCOUNTER 2019-02-23 05:09 | Emergency (ER) | payer OTHER ==
[2019-02-23] MEDS ORDERED: Promethazine HCl 25 MG/ML VIAL ONE (06:23)
[2019-02-23] MEDS ORDERED: Morphine 4 MG/ML VIAL ONE (06:23)
[2019-02-23 07:25] LABS: Bilirubin Small (Negative); Blood, Urine Negative (Negative); Clarity Slightly Cloudy (Clear); Glucose, Urine (Dipstick) Negative (Negative); Leukocyte Negative (Negative); Nitrite Negative (Negative); Protein, Urine (Dipstick) Negative (Neg-Trace); pH, Urine 5.5 (5.0-9.0)
[2019-02-23 07:34] LABS: #Basophils 0.1 thou/uL (0.0-0.2); #Lymphocytes 1.3 thou/uL (1.20-3.40); #Monocytes 0.9 thou/uL (0.11-0.59); #Neutrophils 4.9 thou/uL (1.40-6.50); %Eosinophils 0.3 % (0.0-10.0); %Lymphocytes 17.9 % (21.0-51.0); %Monocytes 12.3 % (0.0-10.0); %Neutrophils 68.5 % (42.0-75.0); Hemoglobin 9.7 g/dL (14.0-18.0); Hypochromia SLIGHT = 6-15 cells (100X) (0-5/hpf); MDiff Complete? YES; Mean Corpuscular HGB CONC 31.8 g/dL (32.0-36.0); Mean Corpuscular Hemoglobin 28.8 pg (27.0-31.0); Mean Corpuscular Volume 90.5 fL (78.0-98.0); Mean Platelet Volume 5.6 fL (7.4-10.4); Platelet Count 148 thou/uL (130-400); RBC Distribution Width 20.7 % (11.5-14.5); Red Blood Cell (RBC) Count 3.36 mill/uL (4.70-6.10); Tear Drops SLIGHT = 2-5 cells (100X) (0-1/hpf); White Blood Cell (WBC) Count 7.2 thou/uL (4.8-10.8)
[2019-02-23 07:35] LABS: ALT (SGPT) 20 U/L (8-55); AST (SGOT) 87 U/L (5-34); Albumin 2.3 g/dL (3.5-5.0); Alkaline Phosphatase 1258 U/L (40-150); Anion Gap 13 mmol/L (10-20); BUN (Urea Nitrogen) 9 mg/dL (8.9-20.6); Bilirubin, Total 4.2 mg/dL (0.2-1.2); Calc. Creatinine Clearance 0 mL/min (70-130); Calcium 8.2 mg/dL (7.8-10.44); Carbon Dioxide 24 mmol/L (22-29); Chloride 105 mmol/L (98-107); Estimated GFR-MDRD Greater than 90; Globulin 3.7 g/dL (2.4-3.5); Glucose 93 mg/dL (70-105); Sodium 138 mmol/L (136-145)
[2019-02-23] MEDS ORDERED: Methocarbamol 500 MG TAB ONE (07:53)
[2019-02-23] MEDS ORDERED: Gadobenate Dimeglumine 529 MG/1 ML (20ML VIAL) ONE (09:00)
--- NOTE | 2019-02-23 09:18 | MRI ---
Exam: MRI lumbar spine with and without contrast HISTORY: Cancer. Elevated sedimentation rate. Pain. Evaluate for infection. Metastatic colon cancer. FINDINGS: Appropriate T1 marrow signal intensity of the lumbar vertebra. Lumbar spine vertebral body height is maintained. There is no evidence of fracture. No significant STIR hyperintensity to suggest vertebral body edema or ligamentous injury. On the postcontrast images, there is no abnormal enhancement with regards vertebral bodies. There is no abnormal enhancement in the thecal sac including the cauda equina and conus medullaris Symmetric signal intensity of the paraspinal muscles Visualized solid organs of appropriate signal intensity Visualized sigmoid colon demonstrates mucosal thickening, incompletely evaluated T12-L1: No significant canal stenosis or neural foraminal narrowing L1-L2: No significant central canal stenosis or neural foraminal narrowing L2-L3: No significant central canal stenosis or neural foraminal narrowing L3-L4: No significant central canal stenosis or neural foraminal narrowing L4-L5: No significant central canal stenosis or neural foraminal narrowing L5-S1: No significant central canal stenosis or neural foraminal narrowing IMPRESSION: 1. No significant central canal stenosis or neural foraminal narrowing likely. 2. No abnormal enhancement to suggest osteomyelitis or epidural abscess. 3. Mucosal thickening in the visualized sigmoid colon, compatible with patient's history of cancer.
[2019-02-23] MEDS ORDERED: Ketorolac Tromethamine 30 MG/ML VIAL ONE (09:43)
== END 2019-02-23 09:57 | disposition home or self-care (01) ==
LOC: SCSER 05:09
DX: M54.5 Low back pain (principal); E10.9 Type 1 diabetes mellitus without complications
CPT/HCPCS: 36415; 72158; 80053; 81003; 85025; 85652; 87086; 96372; A9577; J1885; J2270; J2550

== ENCOUNTER 2019-03-02 23:17 | Emergency (ER) | payer OTHER ==
[2019-03-03 00:42] LABS: Hemoglobin 8.1 g/dL (14.0-18.0); Mean Corpuscular HGB CONC 31.5 g/dL (32.0-36.0); Mean Corpuscular Hemoglobin 29.7 pg (27.0-31.0); Mean Corpuscular Volume 94.2 fL (78.0-98.0); Mean Platelet Volume 7.9 fL (7.4-10.4); Platelet Count 134 thou/uL (130-400); RBC Distribution Width 18.5 % (11.5-14.5); Red Blood Cell (RBC) Count 2.73 mill/uL (4.70-6.10); White Blood Cell (WBC) Count 6.1 thou/uL (4.8-10.8)
[2019-03-03] MEDS ORDERED: Fentanyl 100 MCG/2 ML VIAL ONE ×3 (00:52→05:00)
[2019-03-03 01:03] LABS: Bilirubin Moderate (Negative); Blood, Urine Negative (Negative); Clarity CLEAR (Clear); Glucose, Urine (Dipstick) Negative (Negative); Leukocyte Negative (Negative); Nitrite Negative (Negative); Protein, Urine (Dipstick) Negative (Neg-Trace); Specific Gravity, Urine 1.013 (1.002-1.036); pH, Urine 5.5 (5.0-9.0)
[2019-03-03 01:03] LABS: ALT (SGPT) 17 U/L (8-55); AST (SGOT) 87 U/L (5-34); Albumin 2.1 g/dL (3.5-5.0); Alkaline Phosphatase 1087 U/L (40-150); Anion Gap 11 mmol/L (10-20); BUN (Urea Nitrogen) 10 mg/dL (8.9-20.6); Bilirubin, Total 4.7 mg/dL (0.2-1.2); CK (CPK) 63 U/L (30-200); Calc. Creatinine Clearance 0 mL/min (70-130); Calcium 7.6 mg/dL (7.8-10.44); Carbon Dioxide 25 mmol/L (22-29); Chloride 102 mmol/L (98-107); Estimated GFR-MDRD Greater than 90; Globulin 3.1 g/dL (2.4-3.5); Glucose 154 mg/dL (70-105); Lipase 5 U/L (8-78); Magnesium 1.4 mg/dL (1.6-2.6); Potassium 3.9 mmol/L (3.5-5.1); Protein, Total 5.2 g/dL (6.0-8.3); Sodium 134 mmol/L (136-145)
[2019-03-03 01:06] LABS: Band 2 % (5-11); Eosinophils 1 % (0-10); Lymphocytes 19 % (21-51); MDiff Complete? YES; Monocytes 18 % (0-10); Neutrophil 59 % (42-75)
[2019-03-03] MEDS ORDERED: Loperamide HCl 2 MG CAP ONE (03:16)
--- NOTE | 2019-03-03 09:06 | CT ---
PRELIMINARY REPORT/[facility]/EMERGENCY AFTER HOURS PROCEDURE: EXAM: CT Abdomen and Pelvis With Contrast EXAM DATE/TIME: 03/03/2019 2:07 AM CLINICAL HISTORY: 29 years old, male; Abdominal pain; Acute; Patient HX: 29 y/o m, with h/o colon CA, presents to ED wi th multiple complaints including ble edema, abd distension. PT notes onset of symptoms x 1 mo ago, at time of his last hospitalization. PT has taken lasix as prescribed, offering no alleviation of edema . PT is still passing stool. Denies fever, dyspnea, worsening jaundice. Pt's last chemotherapy treatm ent 02/09. PT is on hospice. TECHNIQUE: Imaging protocol: Axial computed tomography images of the abdomen and pelvis with intravenous contras t. Coronal reformatted images were created and reviewed. COMPARISON: CT Abdomen Pelvis W Con 02/04/2019 3:59 AM FINDINGS: Pleural space: New small right effusion. Right basilar atelectasis. ABDOMEN: Liver: Diffuse hepatic metastatic disease, stable. Gallbladder and bile ducts: No calcified stones. No ductal dilation. Pancreas: No acute pathology. No ductal dilation. Spleen: Spleen enlarged at 15 cm, slightly progressed vs prior. Adrenals: No mass. Kidneys and ureters: No solid mass. No hydronephrosis. Stomach and bowel: Again noted is wall thickening through the sigmoid colon and rectum, however this is less severe than on prior, and other areas of prior colonic wall thickening have resolved. Appendix: No evidence of appendicitis. PELVIS: Bladder: Unremarkable as visualized. Reproductive: Unremarkable as visualized. ABDOMEN and PELVIS: Intraperitoneal space: New, moderate abdominopelvic ascites. Bones/joints: No acute fracture. No dislocation. Soft tissues: Gynecomastia. Vasculature: No abdominal aortic aneurysm. Lymph nodes: Stable abdominal adenopathy. IMPRESSION: New moderate ascites. No significant change in hepatic metastatic disease. Wall thickening through the sigmoid colon and rectum, however this is less severe than on prior, and other areas of prior colonic wall thickening have resolved. No obstruction or free air. Stable adenopathy. Small right pleural effusion. Thank you for allowing us to participate in the care of your patient. Dictated and Authenticated by: Juma Reyes MD 03/03/2019 4:19 AM Central Time ([place]) FINAL REPORT EMERGENCY AFTER HOURS CT ABDOMEN AND PELVIS: FINDINGS/IMPRESSION: I agree with the preliminary report provided by Marge. There is worsening ascites and right-sided pleu ral effusion. Wall thickening involving the colon is slightly improved with persistent colitis involv ing the sigmoid colon. The rectal wall thickening consistent with patient's prior history of rectal c ancer is similar appearing. Diffuse hepatic metastatic disease with scattered adenopathy is similar a ppearing. There is stable splenomegaly. POS: BH
[2019-03-03] MEDS ORDERED: ISOVUE-370 76%-LOCM 1 ML ONE (11:57)
== END 2019-03-03 05:25 | disposition home or self-care (01) ==
LOC: ERS 23:17
DX: R18.8 Other ascites (principal); R10.31 Right lower quadrant pain; Z79.899 Other long term (current) drug therapy; Z79.891 Long term (current) use of opiate analgesic; Z79.4 Long term (current) use of insulin
CPT/HCPCS: 74177; 80053; 81003; 82550; 83605; 83690; 83735; 85025; 93005; 96374; 96376; J3010; Q9966

== ENCOUNTER 2019-03-18 02:07 | Emergency (ER) | payer OTHER ==
[2019-03-18] MEDS ORDERED: Cefepime 2 GM VIAL ONE (02:49)
[2019-03-18] MEDS ORDERED: Sodium Chloride 0.9% 100 ML ONE (02:50)
[2019-03-18 03:19] LABS: #Eosinphils 0.1 thou/uL (0.0-0.7); #Lymphocytes 0.9 thou/uL (1.20-3.40); #Monocytes 0.7 thou/uL (0.11-0.59); #Neutrophils 5.1 thou/uL (1.40-6.50); %Basophils 0.7 % (0.0-1.0); %Eosinophils 1.4 % (0.0-10.0); %Lymphocytes 13.3 % (21.0-51.0); %Monocytes 9.7 % (0.0-10.0); Hemoglobin 9.6 g/dL (14.0-18.0); Mean Corpuscular HGB CONC 32.6 g/dL (32.0-36.0); Mean Corpuscular Hemoglobin 30.9 pg (27.0-31.0); Mean Corpuscular Volume 94.7 fL (78.0-98.0); Platelet Count 151 thou/uL (130-400); Red Blood Cell (RBC) Count 3.09 mill/uL (4.70-6.10); White Blood Cell (WBC) Count 6.8 thou/uL (4.8-10.8)
[2019-03-18 03:33] LABS: ALT (SGPT) 31 U/L (8-55); AST (SGOT) 145 U/L (5-34); Albumin 2.4 g/dL (3.5-5.0); Alkaline Phosphatase 1505 U/L (40-150); Anion Gap 14 mmol/L (10-20); BUN (Urea Nitrogen) 28 mg/dL (8.9-20.6); Bilirubin, Total 9.3 mg/dL (0.2-1.2); Calc. Creatinine Clearance 0 mL/min (70-130); Calcium 7.9 mg/dL (7.8-10.44); Carbon Dioxide 20 mmol/L (22-29); Chloride 104 mmol/L (98-107); Estimated GFR-MDRD 62; Globulin 3.4 g/dL (2.4-3.5); Glucose 120 mg/dL (70-105); Potassium 3.2 mmol/L (3.5-5.1); Protein, Total 5.8 g/dL (6.0-8.3); Sodium 135 mmol/L (136-145)
[2019-03-18 03:34] LABS: Lipase Less than 4 U/L (8-78)
[2019-03-18 03:57] LABS: Bilirubin Large (Negative); Blood, Urine Negative (Negative); Clarity Slightly Cloudy (Clear); Glucose, Urine (Dipstick) Negative (Negative); Leukocyte Negative (Negative); Nitrite Negative (Negative); Protein, Urine (Dipstick) 30 mg/dL (Neg-Trace); pH, Urine 5.5 (5.0-9.0)
[2019-03-18 04:04] LABS: Bacteria/HPF Rare-Few HPF (None Seen); Other Casts/LPF 0-3 WBC CASTS LPF (0-3 Hyaline); RBC/HPF None Seen HPF (0-3); Squamous Epithelial 0-3 HPF (0-3); WBC/HPF 0-3 HPF (0-3)
[2019-03-18 04:05] LABS: Hyaline Casts/LPF 0-3 HYALINE CAST LPF (0-3 Hyaline); Oval Fat Bodies/HPF Rare HPF (None Seen); Renal Epithelial 0-3 HPF (0-3)
[2019-03-18] MEDS ORDERED: Morphine 4 MG/ML VIAL ONE (04:18)
--- NOTE | 2019-03-18 07:53 | RAD ---
EXAM: Single view of the chest HISTORY: Colon cancer with edema COMPARISON: None FINDINGS: Single view of the chest shows a normal sized cardiomediastinal silhouette. A left-sided M ediport is seen with its tip in the superior vena cava. There is no evidence of consolidation, mass, or pleural effusion. The bones are unremarkable. IMPRESSION: No evidence of acute cardiopulmonary disease
[2019-03-18] MEDS ORDERED: Iopamidol 370 76% 100 ML VIAL ONE (09:00)
--- NOTE | 2019-03-18 11:02 | CT ---
PRELIMINARY REPORT/[facility]/EMERGENCY AFTER HOURS PROCEDURE: EXAM: CT Abdomen and Pelvis With Contrast EXAM DATE/TIME: 03/18/2019 3:02 AM CLINICAL HISTORY: 29 years old, male; Signs and symptoms and condition or disease; Liver condition; Hepatomegaly or mas s; Bloating; Prior surgery; Surgery date: 6+ months; Surgery type: Appendectomy; Patient HX: Edema, s crotal swelling, end stage colon cancer TECHNIQUE: Imaging protocol: Axial computed tomography images of the abdomen and pelvis with intravenous contras t. Coronal reformatted images were created and reviewed. Radiation optimization: All CT scans at this facility use at least one of these dose optimization techniques: automated exposure control; mA and/ or kV adjustment per patient size (includes targeted exams where dose is matched to clinical indication); or iterative reconstruction. Contrast material: [id number]; Contrast volume: 90 ml; Contrast route: IV; COMPARISON: CT Abdomen Pelvis W Con 03/03/2019 2:07 AM FINDINGS: Lungs: A small opacity in the right lung base is likely atelectasis. Pleural space: The previously seen pleural effusions are no longer identified. ABDOMEN: Liver: Numerous confluent liver lesions demonstrate no significant change. Gallbladder and bile ducts: Normal. No calcified stones. No ductal dilation. Pancreas: Normal. No ductal dilation. Spleen: Splenomegaly is unchanged. Adrenals: Normal. No mass. Kidneys and ureters: Normal. No hydronephrosis. Stomach and bowel: Wall thickening in the distal colon has progressed. Wall thickening in the proxima l colon is unchanged. Irregular rectal wall thickening suspicious for a mass is unchanged. Appendix: The appendix is unremarkable. PELVIS: Bladder: Unremarkable as visualized. Reproductive: Unremarkable as visualized. ABDOMEN and PELVIS: Intraperitoneal space: Large ascites has progressed. Bones/joints: No fracture. No dislocation. Soft tissues: Subcutaneous fat edema has progressed. There is new fluid in the soft tissues in the ar ea of base of penis. Vasculature: Normal. No abdominal aortic aneurysm. Lymph nodes: Enlarged upper abdominal lymph nodes demonstrate no significant change. IMPRESSION: 1. Progression of ascites and anasarca. 2. Progression of distal colon wall thickening consistent with colitis. 3. No significant change in suspected rectal mass. 4. No significant change in liver metastases. 5. Additional findings as above. Thank you for allowing us to participate in the care of your patient. Dictated and Authenticated by: Chepe Iverson MD 03/18/2019 4:46 AM Central Time ([place]) FINAL REPORT EMERGENCY AFTER HOURS CT ABDOMEN AND PELVIS WITH CONTRAST: FINDINGS/IMPRESSION: I agree with the findings and impression given in the preliminary report per [facility] physician. There is diffuse hepatic metastatic disease with ascites. There is circumferential thickening of the rectum c onsistent with adenocarcinoma.
== END 2019-03-18 06:32 | disposition home or self-care (01) ==
LOC: SCSER 02:07
DX: K52.9 Noninfective gastroenteritis and colitis, unspecified (principal); R60.1 Generalized edema; K72.90 Hepatic failure, unspecified without coma
CPT/HCPCS: 36415; 71045; 74177; 80053; 81003; 81015; 83605; 83690; 84484; 85025; 87040; 87086; 87149; 96365; 96375; J0692; J2270; J3490; Q9967

== ENCOUNTER 2019-04-07 15:39 | Inpatient (IN) | payer OTHER ==
[2019-04-07 16:25] LABS: #Eosinphils 0.1 thou/uL (0.0-0.7); #Lymphocytes 1.6 thou/uL (1.20-3.40); #Neutrophils 9.1 thou/uL (1.40-6.50); %Basophils 0.3 % (0.0-1.0); %Eosinophils 0.9 % (0.0-10.0); %Lymphocytes 13.6 % (21.0-51.0); %Monocytes 8.1 % (0.0-10.0); %Neutrophils 77.1 % (42.0-75.0); Hemoglobin 9.8 g/dL (14.0-18.0); Mean Corpuscular HGB CONC 33.1 g/dL (32.0-36.0); Mean Corpuscular Volume 93.7 fL (78.0-98.0); Mean Platelet Volume 7.5 fL (7.4-10.4); Platelet Count 180 thou/uL (130-400); RBC Distribution Width 15.7 % (11.5-14.5); Red Blood Cell (RBC) Count 3.17 mill/uL (4.70-6.10); White Blood Cell (WBC) Count 11.8 thou/uL (4.8-10.8)
[2019-04-07] MEDS ORDERED: Albumin 25% 25 GM/100 ML BOT IVPB SCH ×2 (16:45→19:00)
--- NOTE | 2019-04-07 16:53 | RAD ---
AP CHEST: 04/07/19 HISTORY: Chest pain. COMPARISON: 03/18/19. Mild elevation of the right hemidiaphragm. Right basilar atelectasis or infiltrate seen through the diaphragm. Lungs otherwise appear clear. Mediport catheter remains in place. IMPRESSION: Evidence of right basilar atelectasis and/or infiltrate. POS: OFF
[2019-04-07 16:55] LABS: ALT (SGPT) 31 U/L (8-55); AST (SGOT) 169 U/L (5-34); Albumin 2.3 g/dL (3.5-5.0); Alkaline Phosphatase 1346 U/L (40-150); Anion Gap 23 mmol/L (10-20); BUN (Urea Nitrogen) 89 mg/dL (8.9-20.6); Bilirubin, Total 16.4 mg/dL (0.2-1.2); Calc. Creatinine Clearance 0 mL/min (70-130); Calcium 7.6 mg/dL (7.8-10.44); Carbon Dioxide 13 mmol/L (22-29); Chloride 102 mmol/L (98-107); Estimated GFR-MDRD 22; Globulin 3.3 g/dL (2.4-3.5); Glucose 64 mg/dL (70-105); Potassium 3.1 mmol/L (3.5-5.1); Protein, Total 5.6 g/dL (6.0-8.3); Sodium 135 mmol/L (136-145)
--- NOTE | 2019-04-07 17:22 | ULT ---
LIMITED ABDOMINAL ULTRASOUND: 04/07/19 Four quadrant ultrasound obtained to assess ascites. INDICATIONS: Ascites. Assess for paracentesis. FINDINGS/IMPRESSION: Moderate to large volume ascites noted in all quadrants. Technologist states that marker was placed f or paracentesis. POS: OFF
[2019-04-07 17:41] LABS: INR-International Normal Ratio 1.9; PTT 50.5 SEC (22.9-36.1); Prothrombin Time 21.5 SEC (12.0-14.7)
[2019-04-07] MEDS ORDERED: Metoclopramide HCl 10 MG/2 ML VIAL IVP PRN (18:39)
[2019-04-07] MEDS ORDERED: Ondansetron PF 4 MG/2 ML Vial IVP PRN (18:39)
[2019-04-07] MEDS ORDERED: Morphine 10 MG/0.5 ML ORAL SYRINGE SL PRN (18:39)
[2019-04-07] MEDS ORDERED: Acetaminophen 650 MG in Premix Bag 1 BAG IVPB PRN (18:41)
--- NOTE | 2019-04-07 19:43 | HP ---
CHIEF COMPLAINT: Pain. 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 The patient reports he revoked his hospice due to increasing pressure in his chest and abdomen, difficulty speaking, and it feels like his stomach is crushing him. He states that he was given pain medicines at home without improvement in his symptoms. His sister reports that the patient has been nauseous and vomiting for 2 weeks, unable to keep anything down, increasing fatigue and anorexia. No fevers or chills are noted, no lightheadedness or dizziness. The patient was last hospitalized here in January of 2019, for an acute colitis that was managed in conjunction with GI and Oncology. At that time per review of the records, patient was not a candidate for any further treatment and hospice was recommended. In the emergency room, the patient received albumin 50 g of 25% and 1 L of normal saline was started and hospitalist called for admission. PAST MEDICAL HISTORY: 1. 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 2. Colitis with hospitalization in January 2019. 3. Type 2 diabetes. 4. Obesity. PAST SURGICAL HISTORY: Appendectomy and port placement. SOCIAL HISTORY: The patient lives at home with family. ALLERGIES: TO AMOXICILLIN. CURRENT MEDICATIONS: There is no list available, in discussion with the patient 's sister, he is on 1. Morphine that is both liquids and pills taking this 2-5 times per day. 2. Hydromorphone every 3 hours. 3. Methocarbamol once a day. 4. Lorazepam as needed. 5. Two medicines for nausea states neither are working. 6. Imodium if needed. FAMILY HISTORY: Significant for colon cancer and heart disease. REVIEW OF SYSTEMS: As noted above with nausea, vomiting, fatigue, anorexia, increasing abdominal pressure and distention, and generalized swelling. It is negative for fevers, chills, feeling lightheaded or dizzy. All remaining review of systems are reviewed and negative. PHYSICAL EXAMINATION: VITAL SIGNS: Blood pressure in the room is in the 80s/50s. Pulse 100, respirations 14, sats 99% on room air. Pain rated at 10/10. GENERAL: The patient is awake, responsive. He is not in immediate distress, but appears uncomfortable. HEENT: Scleral icterus. Oral mucosa is dry. Mild erythema of his tongue. NECK: Supple. Tenderness to palpation throughout the anterior, cervical and supraclavicular lymph node areas with palpable lymphadenopathy. LUNGS: Clear to auscultation. No audible wheezing, rhonchi, or rales. HEART: Normal S1, S2. Regular rate and rhythm. No audible murmurs. ABDOMEN: Distended with prominent fluid wave, present bowel sounds. EXTREMITIES: His lower extremities have 2 to 3+ pitting edema bilateral. SKIN: Has multiple areas of hyperpigmentation. NEUROLOGIC: The patient is able to ambulate with a slowed gait, no focal deficits. VASCULAR: 2+ dorsalis pedis pulses. PSYCH: The patient is alert and oriented to person, place, and situation, time was not tested. LABORATORY DATA: CBC: 11.8, 9.8, 29.7, 180. INR 1.9. Chemistry: 135, 3.1, 102, 23, 89, 3.35, 64. Calcium is 7.6. AST 169, ALT 31, alkaline phosphatase 1346, total protein 5.6, albumin 2.3. Lactic acid is 1.6. Chest xray: right basilar atelectasis and or infiltrate. Abdominal Ultrasound: moderate to large volume ascites. IMPRESSION: 1. Stage IV rectal carcinoma with liver metastases, multi organ failure to include coagulopathy, acute kidney injury, hypoglycemia, hypotension, large volume ascites, elevated liver function tests, hypokalemia, anemia. 2. GIOVANY secondary to hepatorenal syndrome. 3. History of diabetes. 4. History of colitis. PLAN: 1. Observation status in the hospital. 2. Discussed with patient and his family nearby how we could best be helpful and he is requesting a paracentesis. I spoke with the radiologist available tonight about the option given the hypotension and coagulopathy. He thinks it is possible. It will be determined tomorrow by the radiologists who are available to perform the procedure. We will plan to transfuse FFP prior to the procedure, which the patient verbally consents to tonight after discussion of the risks and benefits of FFP. We will continue to infuse albumin, start some D5 normal saline for blood pressure and blood sugar support. I discussed with the patient and his family present that there are risks associated with this procedure, and that the procedure itself may lead to end of life, therefore there is no guarantee that it will be performed. 3. Discussed with the patient and his family that he is at end of life, and the goal is focused on his comfort. We will continue the morphine, anxiolytics, nausea medications, and some IV fluid hydration for blood pressure support. Discussed increasing or being more aggressive with care with regard to life support and CPR, and he does not desire. 4. DVT prophylaxis not indicated, the focus is on comfort measures. 5. GI prophylaxis not indicated. 6. Code status is do not attempt resuscitation, confirmed with his sister and his aunt present. 7. The patient was on hospice care and his hospice nurse Kaya is here talking with them. We will determine tomorrow further ways that he can be supported at end of life. 8. No questions or further needs at the end of discussion again with his family present. 9. Inpatient is possible given the severity of the situation of metastatic disease and multiorgan failure. Job ID: [id number] MTDD
[2019-04-07] MEDS ORDERED: Acetaminophen 650 MG Suppository PR PRN (19:57)
[2019-04-07] MEDS: Dextrose 5 % And 0.9 % NaCl 1,000 ML IV SCH (20:33)
[2019-04-07] MEDS: Morphine 4 MG/ML VIAL SLOW IVP PRN (20:33)
[2019-04-07 23:03] VITALS: BMI 37.8
[2019-04-08] MEDS: Albumin 25% 25 GM/100 ML BOT IVPB SCH ×4 (00:22→18:13)
[2019-04-08] MEDS: Morphine 2 MG/ML SYRINGE SLOW IVP PRN ×3 (02:54→16:53)
[2019-04-08 04:43] LABS: INR-International Normal Ratio 2.2; Prothrombin Time 24.2 SEC (12.0-14.7)
[2019-04-08 05:00] LABS: #Eosinphils 0.1 thou/uL (0.0-0.7); #Lymphocytes 1.1 thou/uL (1.20-3.40); #Monocytes 0.7 thou/uL (0.11-0.59); #Neutrophils 4.2 thou/uL (1.40-6.50); %Basophils 0.4 % (0.0-1.0); %Eosinophils 1.3 % (0.0-10.0); %Lymphocytes 18.7 % (21.0-51.0); %Monocytes 10.9 % (0.0-10.0); %Neutrophils 68.8 % (42.0-75.0); Elliptocytes SLIGHT = 2-5 cells (100X) (0-1/hpf); Hemoglobin 8.4 g/dL (14.0-18.0); MDiff Complete? YES; Mean Corpuscular HGB CONC 33.8 g/dL (32.0-36.0); Mean Corpuscular Hemoglobin 31.7 pg (27.0-31.0); Mean Corpuscular Volume 93.7 fL (78.0-98.0); Mean Platelet Volume 8.7 fL (7.4-10.4); Platelet Count 84 thou/uL (130-400); Platelet Morphology Comment Appears Decreased; RBC Distribution Width 15.7 % (11.5-14.5); Red Blood Cell (RBC) Count 2.65 mill/uL (4.70-6.10); White Blood Cell (WBC) Count 6.1 thou/uL (4.8-10.8)
--- NOTE | 2019-04-08 08:14 | PDOC.PN ---
- Subjective Encounter Start Date: 04/08/19 (f/u sx ascites) Encounter Start Time: 08:13 Subjective: Pt c/o nausea this morning. Denies any pain. Denies any other concerns - Objective Resuscitation Status - Order Detail: 04/07/19 18:36 Resuscitation Status Routine Resuscitation Status: DNAR: NO Resuscitation Discussed with: patient with sister and aunt present Vital Signs & Weight: Vital Signs (12 hours) Temp Pulse Resp BP Pulse Ox 04/08/19 04:12 97.9 F 95 18 82/51 L 96 04/08/19 00:09 97.6 F 94 16 74/47 L 94 L Weight Weight 220 lb Result Diagrams: 04/08/19 03:48 04/07/19 16:13 Phys Exam - Physical Examination appears uncomfortable but not in extremis Respiratory: no wheezing, no rales, no rhonchi Cardiovascular: RRR, no significant murmur distended abd c/w ascites, present bowel sounds Dx/Plan (1) Ascites Code(s): R18.8 - OTHER ASCITES Status: Acute Qualifiers: Ascites type: other type Qualified Code(s): R18.8 - Other ascites (2) Hepatorenal syndrome Code(s): K76.7 - HEPATORENAL SYNDROME Status: Acute (3) GIOVANY (acute kidney injury) Code(s): N17.9 - ACUTE KIDNEY FAILURE, UNSPECIFIED Status: Acute (4) Hypotension Status: Acute (5) Adenocarcinoma of rectum metastatic to liver Code(s): C20 - MALIGNANT NEOPLASM OF RECTUM; C78.7 - SECONDARY MALIG NEOPLASM OF LIVER AND INTRAHEPATIC BILE DUCT Status: Chronic - Plan * Requesting paracentesis with IR this morning * if able to do it, anticipate pt will need FFP to reduce risk of bleeding from procedure as INR 2.2 * pt verbally consents to blood, type and screen completed yesterday * continue all comfort meds * Kaya/hospice nurse to meet with patient/family after procedure to determine next steps * if not enough support at home, inpatient hospice is a consideration * * reviewed plan of care with patient/patient's sister and aunt. No questions or further needs at end of eval. * Only labs that are useful for today's procedure request were performed. No escalation of care per discussion with patient yesterday. * * code status DNAR Addendum- spoke with Radiologist this morning and they will be able to perform tomorrow - on hold as there is no team available except the on-call emergency team. Discussed pt status, indication, current labs and the intention for FFP prior to the procedure - Radiologist agrees. Will extend the albumin for another 24 hours, continue gentle IVF hydration, manage sx, and plan for FFP immediately prior to the procedure tomorrow. D/w RN with request to coordinate with the blood bank. Verbal and written consent obtained.
[2019-04-08] MEDS: Lorazepam 2 MG/ML VIAL SLOW IVP PRN ×2 (09:47→16:53)
[2019-04-08] MEDS: Dextrose 5 % And 0.9 % NaCl 1,000 ML IV SCH (16:59)
[2019-04-09] MEDS: Albumin 25% 25 GM/100 ML BOT IVPB SCH ×3 (00:56→14:39)
[2019-04-09] MEDS: Dextrose 5 % And 0.9 % NaCl 1,000 ML IV SCH ×2 (00:57→14:47)
[2019-04-09] MEDS: Morphine 4 MG/ML VIAL SLOW IVP PRN (05:14)
[2019-04-09 05:34] LABS: INR-International Normal Ratio 2.4; Prothrombin Time 26.2 SEC (12.0-14.7)
[2019-04-09 05:47] LABS: #Eosinphils 0.1 thou/uL (0.0-0.7); #Monocytes 0.6 thou/uL (0.11-0.59); #Neutrophils 4.4 thou/uL (1.40-6.50); %Basophils 0.3 % (0.0-1.0); %Lymphocytes 15.9 % (21.0-51.0); %Monocytes 10.2 % (0.0-10.0); %Neutrophils 72.7 % (42.0-75.0); Hemoglobin 7.8 g/dL (14.0-18.0); Mean Corpuscular HGB CONC 33.7 g/dL (32.0-36.0); Mean Corpuscular Hemoglobin 31.5 pg (27.0-31.0); Mean Corpuscular Volume 93.4 fL (78.0-98.0); Mean Platelet Volume 8.5 fL (7.4-10.4); Platelet Count 75 thou/uL (130-400); RBC Distribution Width 15.6 % (11.5-14.5); Red Blood Cell (RBC) Count 2.49 mill/uL (4.70-6.10); White Blood Cell (WBC) Count 6.1 thou/uL (4.8-10.8)
[2019-04-09] MEDS ORDERED: Sodium Bicarbonate 2.5 MEQ/5 ML VIAL ONE (09:08)
--- NOTE | 2019-04-09 10:10 | ULT ---
Ultrasound-guided paracentesis: HISTORY: Metastatic colon cancer. Ascites. FINDINGS: Informed consent obtained prior to the procedure. Preprocedural imaging demonstrated intrap eritoneal free fluid. An area was marked in the right mid abdomen in the midaxillary line, and then meticulously prepped an d draped in normal sterile fashion and anesthetized with 1% buffered lidocaine. With direct sonographic guidance, a 19-gauge needle and 5 Cymro Zventseh catheter were advanced into the abdomen. After the return of fluid, the catheter was advanced, and the needle was removed. Approximately 3 L of brownish colored fluid was aspirated. Due to decrease in blood pressure, no mahsa tional fluid was aspirated at this time. However, patient's blood pressure did improve to baseline prior to patient being transported to his hospital room. The patient tolerated the procedure well and without immediate complication. IMPRESSION: Technically successful ultrasound-guided paracentesis.
[2019-04-09 13:57] VITALS: BP 84/54; TEMP 97.5
--- NOTE | 2019-04-09 15:05 | PDOC.PN ---
- Subjective Encounter Start Date: 04/09/19 Encounter Start Time: 15:03 Subjective: pt very somnolent & not responding to any Qs -: continues to be lethargic per RN - Objective Resuscitation Status - Order Detail: 04/07/19 18:36 Resuscitation Status Routine Resuscitation Status: DNAR: NO Resuscitation Discussed with: patient with sister and aunt present MAR Reviewed: Yes Vital Signs & Weight: Vital Signs (12 hours) Temp Pulse Pulse Resp BP BP BP 04/09/19 13:57 97.5 F L 90 14 84/54 L 04/09/19 11:37 88 77/52 L 04/09/19 11:00 89 16 81/51 L 04/09/19 10:30 97.1 F L 90 16 80/50 L 04/09/19 10:12 97.2 F L 89 16 84/54 L 04/09/19 09:57 97.2 F L 88 16 80/47 L 04/09/19 09:02 97.5 F L 98 16 95/55 L 04/09/19 08:48 97.6 F 96 16 97/56 L 04/09/19 08:26 97.0 F L 95 16 91/57 L 04/09/19 08:07 97.1 F L 96 14 85/53 L 04/09/19 08:00 97.1 F L 96 14 133/86 Pulse Ox 04/09/19 13:57 91 L 04/09/19 11:37 04/09/19 11:00 04/09/19 10:30 97 04/09/19 10:12 97 04/09/19 09:57 04/09/19 09:02 97 04/09/19 08:48 97 04/09/19 08:26 97 04/09/19 08:07 97 04/09/19 08:00 97 Weight Weight 220 lb I&O: 04/08/19 04/09/19 04/10/19 06:59 06:59 06:59 Intake Total 720 480 Output Total 80 Balance 640 480 Result Diagrams: 04/09/19 05:15 04/07/19 16:13 Additional Labs: Microbiology 04/07/19 16:13 Venous blood - Left Arm Blood Culture - Preliminary Specimen has been received and culture in progress. No Growth to date. 04/07/19 16:13 Venous blood - Left Arm Blood Culture - Preliminary Specimen has been received and culture in progress. No Growth to date. Laboratory Tests 03/03/19 03/18/19 04/07/19 00:31 03:02 16:13 Creatinine 0.81 1.35 H 3.35 H Phys Exam - Physical Examination sleepy & nods yes on my questions.keeps eyes closed.pale HEENT: PERRLA, moist MMs, sclera anicteric, oral pharynx no lesions Neck: no JVD, supple, full ROM LAP Respiratory: no wheezing, no rales, no rhonchi, clear to auscultation bilateral Cardiovascular: RRR, no significant murmur ascites present,distended. Musculoskeletal: pulses present, edema present Deviation from normal: sleepy.lethargic Dx/Plan (1) GIOVANY (acute kidney injury) Code(s): N17.9 - ACUTE KIDNEY FAILURE, UNSPECIFIED Status: Acute (2) Ascites Code(s): R18.8 - OTHER ASCITES Status: Acute Qualifiers: Ascites type: other type Qualified Code(s): R18.8 - Other ascites Comment: Paracentesis today w 3 L fluid removal (3) Hepatorenal syndrome Code(s): K76.7 - HEPATORENAL SYNDROME Status: Acute (4) Pancytopenia Code(s): D61.818 - OTHER PANCYTOPENIA Status: Acute (5) Adenocarcinoma of rectum metastatic to liver Code(s): C20 - MALIGNANT NEOPLASM OF RECTUM; C78.7 - SECONDARY MALIG NEOPLASM OF LIVER AND INTRAHEPATIC BILE DUCT Status: Chronic (6) DM type 1 (diabetes mellitus, type 1) Status: Chronic - Plan DVT proph w/SCDs Pt seems to be towards end of life w metastatic CA. -: will consult palliative care & move forward w Inpt hospice as discussed -: by yesterday. -: comfort care .monimize aggressive labs etc -: seems to be imminent * . Review of Systems - Review of Systems Other: can not be obtained due to somnolence - Medications/Allergies Allergies/Adverse Reactions: Allergies Allergy/AdvReac Type Severity Reaction Status Date / Time amoxicillin Allergy Rash Verified 04/07/19 22:49 Medications: Current Medications Acetaminophen (Tylenol) 650 mg MD Q8H PRN PRN Reason: Fever > 101 Albumin Human (Albumin 25%) 25 gm IVPB Q6H AN Stop: 04/09/19 23:00 Last Admin: 04/09/19 14:39 Dose: 25 gm Dextrose/Sodium Chloride (D5 0.9% Ns) 1,000 mls @ 50 mls/hr IV .Q20H AN Last Admin: 04/09/19 14:47 Dose: Not Given Lorazepam (Ativan) 0.5 mg SLOW IVP Q6H PRN PRN Reason: Anxiety/Agitation Last Admin: 04/08/19 16:53 Dose: 0.5 mg Metoclopramide HCl (Reglan) 5 mg IVP Q6H PRN PRN Reason: Nausea/Vomiting Last Admin: 04/08/19 09:46 Dose: 5 mg Morphine Sulfate (Morphine) 2 mg SLOW IVP Q2H PRN PRN Reason: Mild-Moderate Pain (1-5) Last Admin: 04/08/19 16:53 Dose: 2 mg Morphine Sulfate (Morphine) 4 mg SLOW IVP Q2H PRN PRN Reason: Moderate to Severe Pain (6-10) Last Admin: 04/09/19 05:14 Dose: 4 mg Morphine Sulfate (Roxanol Solution) 10 mg SL Q2H PRN PRN Reason: Moderate to Severe Pain (6-10) Ondansetron HCl (Zofran) 4 mg IVP Q6H PRN PRN Reason: Nausea/Vomiting Last Admin: 04/08/19 08:11 Dose: 4 mg Sodium Chloride (Flush - Normal Saline) 10 ml IVF PRN PRN PRN Reason: Saline Flush Last Admin: 04/08/19 05:08 Dose: 10 ml
[2019-04-09] MEDS: Morphine 2 MG/ML SYRINGE SLOW IVP PRN (17:49)
--- NOTE | 2019-04-10 02:52 | DIS ---
DATE OF ADMISSION: 04/07/2019 DATE OF DISCHARGE: 04/09/2019 DISCHARGE DISPOSITION: Inpatient hospice. DISCHARGE DIAGNOSES: 1. Acute renal insufficiency. 2. Ascites status post paracentesis. 3. Hepatorenal syndrome. 4. Metastatic adenocarcinoma of the rectum to liver. 5. Pancytopenia. 6. Diabetes mellitus, type 1. DISCHARGE MEDICATION: 1. MS Contin 30 mg p.o. b.i.d. 2. Zofran p.r.n. 3. Lorazepam p.r.n. 4. Morphine sulfate 2 mg IJ q.2 hours p.r.n., otherwise as per the hospice team. PROCEDURES DONE IN THE HOSPITAL: 1. Abdominal ultrasound on 04/07/2019, [id number] volume ascites. 2. Successful paracentesis of about 3 L of ascitic fluid. HISTORY OF PRESENTING ILLNESS: Mr. Barrera is an unfortunate 29-year-old male with known history of stage IV rectal adenocarcinoma with liver metastasis, who presented to the emergency room with complaints of worsening abdominal pain. He was under hospice care, but revoked hospice because of persistent pressure in his chest and abdomen and worsening abdominal distention. He was found to have significant ascites upon presentation on abdominal ultrasound. His liver enzymes were elevated. Albumin was 2.3, and chest x-ray suggested possible right-sided atelectasis versus infiltrate. He was admitted for palliative paracentesis with hopes of transitioning to inpatient hospice as the patient has continued to decline. On top of that, he was found to have severe acute renal insufficiency, likely secondary to hepatorenal syndrome. Please see admission history and physical dictated by Dr. Francine lKein on 04/07/2019. HOSPITAL COURSE: The patient underwent paracentesis after some fresh frozen plasma was infused as his INR was rather elevated at 2.4, likely due to hepatic metastasis. 3 L of fluid was removed, but the patient continued to do very poorly. Discussions were held between Dr. Klein and the family and Palliative Care team was consulted by myself this morning. This patient exhibited no sign of improvement and at this time, the family decided to reinstitute the hospice and keep him comfortable. Palliative Care team spoke with the patient and the family this morning and he was accepted for inpatient hospice as that seems to be imminent. The patient was discharged from inpatient hospitalist service and was readmitted by inpatient hospice service under Dr. Fierro. He was seen and examined prior to discharge this morning. Please see hospitalist progress note from this morning's date for further details including [id number] interaction. Job ID: [id number]
--- NOTE | 2019-04-10 07:32 | PQF ---
[employer] MiguelSHREYAS MONROY YONI MCBRIDE [id number] CLINICAL DOCUMENTATION CLARIFICATION FORM: POST DISCHARGE Addendum to original discharge summary date: Please note the discharge summary was completed by Dr. Kely Hook on April 09. My last note with the patient was on April 08, and this can be an addendum for that note. Late entry note date: ____13 April 2018 DATE: 04/10/2019 ATTN: YONI MCBRIDE Please exercise your independent, professional judgment in responding to the clarification form. Clinical indicators are provided on the bottom of this form for your review Ascities Etiology Please check appropriate box(s): [ X ] Ascities due to Hepatic metastasis [ X ] Ascities due to Rectal carcinoma [ ] Ascities due to unknown Etiology [ ] Unable to determine In addition, please specify: Present on Admission (POA): [ xx ] Yes [ ] No [ ] Unable to determine For continuity of documentation, please document condition throughout progress notes and discharge summary. Thank You. CLINICAL INDICATORS - SIGNS / SYMPTOMS / LABS Increasing pressure in his chest and abdomen - Documented in H&P on 04/07/19 by Yoni Mcbride MD Stage IV rectal carcinoma with liver metastasis - Documented in H&P on by Yoni Mcbride MD large volume ascities - Documented in H&P on 04/07/19 by Yoni Mcbride MD He was admitted for pallative Paracentesis - Documented in Discharge summary on 04/09/2019 by Monster Edge MD INR was rather elevated at 2.4 likely due to hapatic metastasis - Documented in Discharge summary on 04/09/2019 by Monster Edge MD RISK FACTORS GIOVANY due to Hepatorenal syndrome - Documented in H&P on 04/07/19 by Yoni Mcbride MD DM - Documented in Discharge summary on 04/09/2019 by Monster Edge MD TREATMENTS: Paracentesis ultrasound - Done by Close Jorge Jara Ultrasound Study [employer] Win[employer] Viewer (This form is maintained as a part of the permanent medical record) 2014 [employer]. All Rights Reserved [email or web address] [not provided] MTDD
--- NOTE | 2019-04-14 11:53 | EKG ---
Test Reason : LOW BP Blood Pressure : / mmHG Vent. Rate : 102 BPM Atrial Rate : 102 BPM P-R Int : 104 ms QRS Dur : 084 ms QT Int : 384 ms P-R-T Axes : 043 020 068 degrees QTc Int : 500 ms Sinus tachycardia with short MT Nonspecific T wave abnormality Abnormal ECG Confirmed by ADAM LA, RUPALI [place]en[place] ([id number]), newspaper copy editor KAREN HARRISON ([id number]) on 04/14/2019 11:53:16 AM Referred By: Confirmed By:RUPALI MEDINA MD
== END 2019-04-09 18:07 | disposition hospice, inpatient (51) | DRG 374 ==
LOC: ERS 15:39 → INTOOBSV 18:43 → ONC 18:43 → OBSVTOIN 18:43
PROVIDERS: ADMIT Family Medicine; ATTEND Family Medicine
PROC: 0W9G30Z Drainage of Peritoneal Cavity with Drainage Device, Percutaneous Approach (ICD-10-PCS; principal; 2019-04-09)
DX: C20 Malignant neoplasm of rectum (principal); K76.7 Hepatorenal syndrome; C78.7 Secondary malignant neoplasm of liver and intrahepatic bile duct; N17.9 Acute kidney failure, unspecified; D61.818 Other pancytopenia; R18.0 Malignant ascites; E66.9 Obesity, unspecified; Z66 Do not resuscitate; E10.649 Type 1 diabetes mellitus with hypoglycemia without coma; Z90.49 Acquired absence of other specified parts of digestive tract; Z88.0 Allergy status to penicillin; Z79.899 Other long term (current) drug therapy; Z68.37 Body mass index [BMI] 37.0-37.9, adult
CPT/HCPCS: 36415; 36416; 36430; 49083; 71045; 76705; 80053; 83605; 85025; 85610; 85730; 86850; 86900; 86901; 87040; 93005; 96361; 96365; J2060; J2270; J2405; J2765; P9047; P9059

== ENCOUNTER 2019-04-09 18:20 | Inpatient (IN) | payer OTHER ==
[2019-04-09 18:36] VITALS: BMI 37.8
[2019-04-09] MEDS ORDERED: Scopolamine 1.5 mg/72 hour Patch TOP PRN (21:00)
[2019-04-10] MEDS: Morphine 4 MG/ML VIAL SLOW IVP PRN ×4 (00:07→15:16)
[2019-04-10] MEDS: Lorazepam 2 MG/ML VIAL SLOW IVP PRN (05:12)
[2019-04-10] MEDS: Morphine 4 MG/ML VIAL SLOW IVP SCH (20:23)
[2019-04-11] MEDS: Morphine 4 MG/ML VIAL SLOW IVP SCH ×7 (00:31→20:05)
[2019-04-11] MEDS: Morphine 4 MG/ML VIAL SLOW IVP PRN ×2 (09:34→11:36)
[2019-04-11] MEDS: Lorazepam 2 MG/ML VIAL SLOW IVP PRN ×2 (10:41→14:02)
[2019-04-11] MEDS ORDERED: Morphine 4 MG/ML VIAL SLOW IVP PRN (15:00)
[2019-04-11] MEDS ORDERED: Lorazepam 2 MG/ML VIAL SLOW IVP PRN (15:00)
[2019-04-11] MEDS: Lorazepam 2 MG/ML VIAL SLOW IVP SCH ×3 (16:48→20:05)
[2019-04-12] MEDS ORDERED: Lorazepam 2 MG/ML VIAL ONE ×2 (00:03→04:09)
[2019-04-12] MEDS ORDERED: Morphine 4 MG/ML VIAL ONE ×2 (00:03→04:09)
[2019-04-12] MEDS: Lorazepam 2 MG/ML VIAL SLOW IVP SCH ×11 (09:07→22:17)
[2019-04-12] MEDS: Morphine 4 MG/ML VIAL SLOW IVP SCH ×10 (09:10→22:17)
[2019-04-12 19:51] VITALS: BP 50/29; TEMP 97.2
--- NOTE | 2019-04-13 14:26 | DIS ---
DATE OF ADMISSION: 04/09/2019 DATE OF DISCHARGE: 04/12/2019 SUMMARY: This is a 29-year-old gentleman, who had metastatic adenocarcinoma of the rectum to liver with multiorgan failure. He had diabetes mellitus. The patient was on hospice and was admitted for inpatient comfort care, and the patient peacefully. TIME OF : April 12 at 8:22 p.m. DISPOSITION: home. COMPLICATIONS: None. Family was aware. Job ID: [id number]
== END 2019-04-12 20:22 | disposition expired | DRG 375 ==
LOC: ONC 18:20
PROVIDERS: ADMIT Internal Medicine Nephrology; ATTEND Internal Medicine Nephrology
DX: C20 Malignant neoplasm of rectum (principal); C78.7 Secondary malignant neoplasm of liver and intrahepatic bile duct; E11.9 Type 2 diabetes mellitus without complications
CPT/HCPCS: J2060; J2270